=== PATIENT | male | born 1970 | race Hispanic/Latino ===

== ENCOUNTER 2017-10-22 21:44 | Observation (INO) | payer MEDICARE, MEDICAID ==
--- NOTE | 2017-10-22 22:56 | ED PDOC ---
Arrival/HPI - General Historian: Patient - History of Present Illness Time/Duration: Other (2 days) Symptom Onset: Sudden Symptom Course: Resolved Activities at Onset: Light Context: Home - General Chief Complaint: Weakness/Neurological Deficit Time Seen by Provider: 10/22/17 22:00 - History of Present Illness Narrative History of Present Illness (Text): 10/22/17 22:20 47 year old male, whose past medical history includes diabetes, hypertension, chronic renal disease, and renal transplant, presents to the emergency department transferred from [facility] for evaluation of history of onset left sided weakness and paresthesia which occurred 2 days ago. Patient states symptoms waxed and waned for a day and then disappeared. Patient states intermittently he had residual numbness to the left leg and possible facial droop.Today, patient was advised to go to the hospital for further evaluation.His symptoms had disappeared. Patient had undergone evaluation including lab work and CT study all reported as normal. Patient requested to be transferred to [facility].Pts. reports were sent with him. He is currently asymptomatic with no complaints. Patient currently denies any paresthesia, weakness, nausea, vomiting, diarrhea, or any other complaints.Pt. had received ASA prior at the [facility]. Note; Patients labs/ct/EKG sent with the patient PMD: Dr. Lucio ([facility]) Past Medical History - Provider Review Nursing Documentation Reviewed: Yes - Infectious Disease Hx of Infectious Diseases: None - Tetanus Immunization Tetanus Immunization: Unknown - Cardiac Hx Cardiac Disorders: Yes Hx Hypertension: Yes Hx Peripheral Vascular Disease: Yes - Pulmonary Hx Respiratory Disorders: No - Neurological Hx Neurological Disorder: No Hx Seizures: No (denies) - HEENT Hx HEENT Disorder: Yes (EYE SX O.U) - Renal Hx Renal Disorder: Yes Hx Renal Failure: Yes Other/Comment: RENAL DISEASE(KIDEY TRANSPLANT) 2010 - Endocrine/Metabolic Hx Endocrine Disorders: Yes Hx Diabetes Mellitus Type 1: Yes Hx Diabetes Mellitus Type 2: Yes - Hematological/Oncological Hx Blood Disorders: No - Integumentary Hx Dermatological Disorder: No - Musculoskeletal/Rheumatological Other/Comment: CHARCOT FOOT - Gastrointestinal Hx Gastrointestinal Disorders: Yes Hx Gastroesophageal Reflux: Yes (GERD) - Genitourinary/Gynecological Hx Genitourinary Disorders: No Hx Hematuria: Yes - Psychiatric Hx Emotional Abuse: No Hx Physical Abuse: No Hx Substance Use: No - Surgical History Hx Eye Surgery: Yes Hx Kidney Transplant: Yes (2010) Hx Musculoskeletal Surgery: Yes (RIGHT FOOT AND ANKLE X7) Hx Open Reduction Internal Fixation: (RIGHT FT W/ SCREW FIXATION) Hx Orthopedic Surgery: Yes (LEFT & RIGHT FOOT SURGERY ) Hx Tonsillectomy: Yes Other/Comment: Right foot - Anesthesia Hx Anesthesia: Yes Hx Anesthesia Reactions: No Hx Malignant Hyperthermia: No - Suicidal Assessment Feels Threatened In Home Enviroment: No Family/Social History - Physician Review Nursing Documentation Reviewed: Yes Family/Social History: No Known Family HX Smoking Status: Never Smoked Hx Alcohol Use: Yes Hx Substance Use: No Hx Substance Use Treatment: No Allergies/Home Meds Allergies/Adverse Reactions: Allergies No Known Allergies Allergy (Verified 10/23/17 18:59) Home Medications: Home Meds Medication Instructions Recorded Confirmed Aspirin [Bond Aspirin] 81 mg PO QPM 10/13/16 10/23/17 Atorvastatin [Lipitor] 20 mg PO DAILY 10/13/16 10/23/17 Insulin Aspart [Novolog Flexpen] 10 unit SUBCUT TID 10/13/16 10/23/17 Insulin Glargine, Recombina 20 unit SUBCUT BID 10/13/16 10/23/17 [Lantus] Multivitamin [Daily Mamadou] 1 tab PO DAILY 10/13/16 10/23/17 Tacrolimus [Prograf Cap] 1 mg PO QAM 10/13/16 10/23/17 Tacrolimus [Prograf Cap] 1 mg PO QPM 10/13/16 10/23/17 predniSONE [predniSONE Tab] 5 mg PO DAILY 10/13/16 10/23/17 Mycophenolate Sodium [Mycophenolic 720 mg PO BID 10/23/17 10/23/17 Acid] Review of Systems - Physician Review All systems were reviewed & negative as marked: Yes - Review of Systems Gastrointestinal: absent: Diarrhea, Nausea, Vomiting Neurological: Other (Left side weakness and paresthesia that currently resolved ) Physical Exam Vital Signs Reviewed: Yes Temperature: Afebrile Blood Pressure: Normal Pulse: Regular Respiratory Rate: Normal Appearance: Positive for: Well-Appearing, Non-Toxic, Comfortable Pain Distress: None Mental Status: Positive for: Alert and Oriented X 3 - Systems Exam Head: Present: Atraumatic, Normocephalic Pupils: Present: PERRL Extroacular Muscles: Present: EOMI Conjunctiva: Present: Normal Mouth: Present: Moist Mucous Membranes Neck: Present: Normal Range of Motion Respiratory/Chest: Present: Clear to Auscultation, Good Air Exchange. No: Respiratory Distress, Accessory Muscle Use Cardiovascular: Present: Regular Rate and Rhythm, Normal S1, S2. No: Murmurs Abdomen: Present: Normal Bowel Sounds. No: Tenderness, Distention, Peritoneal Signs Back: Present: Normal Inspection Upper Extremity: Present: Normal Inspection. No: Cyanosis, Edema Lower Extremity: Present: Normal Inspection. No: Edema Neurological: Present: GCS=15, CN II-XII Intact, Speech Normal, Motor Func Grossly Intact, Normal Sensory Function, Normal Cerebellar Funct, Norm Deep Tendon Reflexes, Gait Normal, Memory Normal, Normal 2Pt Descrimination. No: Other (No focal, motor, or sensory deficits. ) Skin: Present: Warm, Dry, Normal Color. No: Rashes Psychiatric: Present: Alert, Oriented x 3, Normal Insight, Normal Concentration Vital Signs Temp Pulse Resp BP Pulse Ox 10/23/17 15:33 88 16 158/100 H 98 10/23/17 14:25 98.2 F 92 H 18 156/91 H 99 10/23/17 13:00 92 H 18 158/90 H 98 10/23/17 10:44 86 18 166/99 H 94 L 10/23/17 09:30 84 18 150/90 99 10/23/17 07:44 98.6 F 80 18 153/98 H 96 10/23/17 06:09 84 15 142/95 H 97 10/23/17 04:10 83 16 151/98 H 96 10/23/17 02:52 87 16 156/97 H 96 10/23/17 01:43 85 16 143/99 H 96 10/22/17 22:02 98.7 F 97 H 18 152/88 H 99 Medical Decision Making ED Course and Treatment: 10/23/17 12:36 Case was discussed with Dr. Clinton Lucio who agrees that patient can be moved to Remote Telemetry. I have changed the order for him. Dr. Hurtado ED Director (Randy Hurtado) 10/22/17 22:40 Impression: 47 year old male presents for transfer from [facility] for evaluation on history of left sided weakness and paresthesia which occurred 2 days ago. Patient symptoms currently resolved. Plan: -- Reassess and disposition Progress Notes: 10/22/17 23:33 Pt. remains asymptomatic.Case d/w .Accepts to his service. on consult. Pt. not a candidate for TPA given resolution of symptoms. (Gabino White) - Medication Orders Current Medication Orders: Aspirin (Ecotrin) 81 mg PO DAILY [facility] Last Admin: 10/23/17 13:34 Dose: 81 mg Atorvastatin Calcium (Lipitor) 80 mg PO DAILY [facility] Last Admin: 10/23/17 13:34 Dose: 80 mg Clopidogrel Bisulfate (Plavix) 75 mg PO DAILY [facility] Last Admin: 10/23/17 13:34 Dose: 75 mg Insulin Detemir (Levemir) 10 unit SC [facility] Insulin Human Regular (Humulin R Med) 0 units SC [facility] PRN Reason: Protocol Last Admin: 10/23/17 16:47 Dose: 8 units MAR Blood Glucose Document 10/23/17 16:47 MV (Rec: 10/23/17 16:47 [place] [id number]) Blood Glucose Finger Stick Blood Glucose (70-120) 356 Subcutaneous Administrations Document 10/23/17 16:47 MV (Rec: 10/23/17 16:47 [place] [id number]) Injection Site MAR Injection Site Left Arm Charges for Administration # of Subcutaneous Administrations 1 Prednisone (Prednisone Tab) 5 mg PO DAILY [facility] Last Admin: 10/23/17 15:29 Dose: Tacrolimus (Prograf Cap) 1 mg PO Q12 [facility] Discontinued Medications Amlodipine Besylate (Norvasc) 5 mg PO STAT STA Stop: 10/23/17 14:31 Last Admin: 10/23/17 15:26 Dose: 5 mg Lisinopril (Zestril) 10 mg PO STAT STA Stop: 10/23/17 17:51 Last Admin: 10/23/17 18:07 Dose: 10 mg MAR Pulse and Blood Pressure Document 10/23/17 18:07 MV (Rec: 10/23/17 18:07 MV [id number]) Pulse Pulse Rate (60-90) 88 Blood Pressure Blood Pressure (100/60-150/90) 154/103 NIHSS Scale (Durand) Time Performed: 21:50 - How Severe is the Stoke Baseline Level of Consciousness: 0=Alert LOC to Questions: 0=Both comments correct LOC to commands: 0=Obeys both correctly Best Gaze: 0=Normal Visual: 0=No visual loss Facial: 0=Normal Motor Arm - Left: 0=No drift Motor Arm - Right: 0=No drift Motor Leg - Left: 0=No drift Motor Leg - Right: 0=No drift Limb Ataxia: 0=Absent Sensory: 0=Normal Best Language: 0=No aphasia Dysarthia: 0=Normal articulation Extinction & Inattention (Neglect): 0=Normal, no object Score: 0 Risk Level: No Stroke Risk rTPA Inclusion/Exclusion - Refusal of Treatment Patient Refused Treatment: No - Inclusion Criteria for Altepase Patient is 18 years or Older: Yes The Clinical Diagnosis of Ischemic Stroke That is Causing a Potentially Disabling Neurological Deficit: No Time of Onset is Well Established to be Less Than 270 Minute Before Treatment Would Begin: No Risk/Benefit Discussed With Patient/Family Member Present: Yes - Exclusion Criteria for Altepase Uncontrolled Hypertension at Time of Treatment (Systolic BP above 185 or Diastolic BP above 110 mmHg): No Active Internal Bleeding: No Known Bleeding Diathesis Including but Not Limited to: Platelets Below 100,000/ mm,PTT Above 40 sec After Heparin Use, Current Use of Oral Anitcoagulant With INR Greater Than 1.7 or PT Greater Than 15 secs: No Evidence of an Intracranial Hemorrhage: No Evidence of Major Acute Infarct With Signs Greater Than 1/3 MCA Territory: No Suspicion of Subarachnoid Hemorrhage on Pretreatment Evaluation Even if CT Head Negative For Hemorrhage: No - Warning to TPA With Conditions Following Conditions Weighed Against Anticipated Benefit: Yes Condition: Rapid Improvement - Scribe Statement The provider has reviewed the documentation as recorded by the Scribe - Scribe Statement Esau Hough Provider Scribe Attestation: All medical record entries made by the Scribe were at my direction and personally dictated by me. I have reviewed the chart and agree that the record accurately reflects my personal performance of the history, physical exam, medical decision making, and the department course for this patient. I have also personally directed, reviewed, and agree with the discharge instructions and disposition. (Gabino White) Disposition/Present on Arrival - Present on Arrival Any Indicators Present on Arrival: No History of DVT/PE: No History of Uncontrolled Diabetes: No Urinary Catheter: No History of Decub. Ulcer: No History Surgical Site Infection Following: None - Disposition Have Diagnosis and Disposition been Completed?: Yes Disposition Time: 23:39 Patient Plan: Observation - Disposition Diagnosis: TIA (transient ischemic attack) Disposition: HOSPITALIZED Patient Problems: Current Active Problems Problem Status Onset TIA (transient ischemic attack) Acute Condition: STABLE
--- NOTE | 2017-10-23 13:08 | MRI ---
PROCEDURE: MRI BRAIN WITHOUT CONTRAST HISTORY: TIA COMPARISON: Noncontrast head CT from 10/13/2012 TECHNIQUE: Multiplanar, multisequence MR images of the brain were obtained without intravenous contrast enhancement. FINDINGS: HEMORRHAGE: None DWI: There focal area of restricted diffusion in the right medial thalamus superior lateral cerebral peduncle. BRAIN PARENCHYMA: There is corresponding increased T2/FLAIR signal in the right thalamus and superolateral right cerebral peduncle. There are few tiny T2/FLAIR hyperintense foci in the centrum semiovale. There is no mass, mass effect or abnormal extra-axial fluid collection. The midline sagittal structures are normal. VENTRICLES: The ventricles are normal in size, shape and configuration. There is a humphrey cisterna magna. CRANIUM: There is normal bone marrow signal pattern. ORBITS: Grossly unremarkable. PARANASAL SINUSES/MASTOIDS: Predominantly clear. There are bilateral mastoid effusions. VASCULAR SYSTEM: Skull base flow voids intact. OTHER FINDINGS: None. IMPRESSION: 1. Acute infarctions in the right medial thalamus and superolateral right cerebral peduncle. 2. Minimal white matter changes in the centrum semiovale are nonspecific, the differential considerations include gliosis, early chronic microangiopathic changes and migraine headache effect amongst others. Important findings were discussed with nurse Barone in the ER on 10/23/2017 at 12:55 p.m.
[2017-10-23 15:36] VITALS: O2SAT 98
[2017-10-23] MEDS: Insulin Reg-MEDIUM-Coverage SC SCH ×2 (16:47→21:20)
--- NOTE | 2017-10-23 18:33 | US ---
PROCEDURE: Bilateral carotid artery duplex ultrasound HISTORY: Carotid stenosis CVA PHYSICIAN(S): John Duque MD. TECHNIQUE: Duplex sonography and color-flow Doppler were used to evaluate the carotid bifurcations and limited segments of the vertebral arteries bilaterally. FINDINGS: There is mild smooth hypoechoic plaque noted at the carotid bifurcations bilaterally. The peak systolic velocity in the proximal right internal carotid artery is 72 cm/sec. This corresponds to a 20 to 39% proximal right ICA stenosis. Normal systolic velocities are noted in the proximal right external carotid artery. There is antegrade flow in the right vertebral artery. The peak systolic velocity in the proximal left internal carotid artery is 81 cm/sec. This corresponds to a 20 to 39% proximal left ICA stenosis. Normal systolic velocities are noted in the proximal left external carotid artery. There is antegrade flow in the dominant left vertebral artery. IMPRESSION: 1. Bilateral 20-39% proximal ICA stenoses. 2. Antegrade flow in both vertebral arteries.
[2017-10-23] MEDS ORDERED: Insulin Detemir 100 units/ml Vial (Levemir) SC SCH (22:00)
[2017-10-23] MEDS ORDERED: Influenza Vaccine 60 mcg/0.5 mL SYR (4YR UP) IM ONE (22:02)
[2017-10-23] MEDS ORDERED: Pneumococcal 23-Valent Vaccine IM ONE (22:02)
[2017-10-23 22:03] VITALS: BMI 22.5
[2017-10-24 02:42] VITALS: RESP 18
[2017-10-24 07:02] LABS: BASO # 0.04 K/mm3 (0.0-2.0); BASO % 0.5 % (0.0-3.0); EOS # 0.4 (0.0-0.7); EOS % 4.6 % (1.5-5.0); GRAN # 5.57 (1.4-6.5); GRAN % 64.3 % (50.0-68.0); HEMOGLOBIN 12.5 g/dL (14.0-18.0); LYMPH # 2.1 (1.2-3.4); LYMPH % 24.1 % (22.0-35.0); MEAN CELL VOLUME 82.5 fl (80.0-105.0); MEAN CORPUSCULAR HEMOGLOBIN 25.4 pg (25.0-35.0); MEAN CORPUSCULAR HGB CONC 30.8 g/dl (31.0-37.0); MEAN PLATELET VOLUME 9.9 fl (7.0-11.0); MONO # 0.6 (0.1-0.6); MONO % 6.5 % (1.0-6.0); PLATELET COUNT 376 10^3/uL (120.0-450.0); RBC 4.92 10^6/uL (3.5-6.1); RED CELL DISTRIBUTION WIDTH 14.3 % (11.5-14.5); WHITE BLOOD COUNT 8.7 10^3/ul (4.5-11.0)
[2017-10-24 07:11] LABS: ALB/GLOB RATIO 1.2 (1.1-1.8); ALBUMIN 3.7 g/dL (3.0-4.8); CALCIUM 9.9 mg/dL (8.4-10.5)
--- NOTE | 2017-10-24 08:05 | CON ---
DATE: 10/23/2017 NEUROLOGY CONSULTATION CHIEF COMPLAINT: Left side numbness. HISTORY OF PRESENT ILLNESS: This is a 47-year-old man, history of type 2 diabetes mellitus, hypertension, chronic renal disease, status post renal transplant, history of multiple interventions on his right foot surgeries who presented for evaluation of onset of left-sided weakness and paresthesias started about 2 days ago, which waxed and waned and therefore came to the hospital for further evaluation. No facial droop is seen. He underwent an MRA of the brain, which showed an acute infarct in the right medial thalamus and superior right cerebellar peduncle and some chronic ischemic changes. Currently, he has no focal weakness in the extremity except for some mild residual slow finger tap on the left hand compared to the right. He does have features of diabetic neuropathy on neuro examination as well. He does mention, for many years, he has been having tingling and numbness in his both hands especially at night, which is most likely related to an underlying carpal tunnel syndrome too. Carotid Doppler has been ordered and has been completed, results pending. His blood sugars are slightly elevated and his blood pressure was diastolically elevated 158/100. Otherwise no headaches. PAST MEDICAL HISTORY: Type 2 diabetes mellitus, hypertension, chronic renal disease, renal transplant, multiple surgeries to the right foot. ALLERGIES: NO KNOWN DRUG ALLERGIES. SOCIAL HISTORY: No illicit drug use, smoking or EtOH abuse at this time. FAMILY HISTORY: Noncontributory. MEDICATIONS: Reviewed by nurse reconciliation sheet. REVIEW OF SYSTEMS: A 14-point review of systems negative except as per the HPI. PHYSICAL EXAMINATION: VITAL SIGNS: Temperature 98.2, pulse rate 92, blood pressure 156/91, respiratory rate of 18, oxygen saturation of 99% by room air. GENERAL: Patient is sitting up in bed, in no acute distress. HEENT: Atraumatic and normocephalic. PERRLA. Extraocular muscles intact. NECK: Supple. No JVD, no adenopathy noted. LUNGS: Clear to auscultation. No adventitious sounds. HEART: S1, S2. Normal rate and rhythm. No murmurs, rubs or gallops. ABDOMEN: Soft, nontender, nondistended. Bowel sounds present. EXTREMITIES: No clubbing, no cyanosis. Peripheral pulses are 2+ felt bilaterally. NEUROLOGIC: Patient is alert, oriented to person, place, month and year. Speech is fluent without any errors. Cranial nerves II through XII intact. Motor: Moves all extremities equally except for left slow finger tap compared to the right. no pronator drift seen. Sensory: Decreased light touch and pinprick up to the calves bilaterally. Decreased vibration to the toes. DTRs are 2+ throughout and 1 at the ankles. Coordination: [id number] intact. No dysmetria noted. Gait is deferred for now. LABORATORY DATA: Today's glucose is 238. ASSESSMENT AND PLAN: This is a 47-year-old man, past medical history of type 2 diabetes mellitus, hypertension, chronic renal disease, status post renal transplant who presents with 2 days onset of left-sided numbness and paresthesias with questionable facial droop and therefore came to the hospital for further evaluation. His MRA of the brain showed right medial thalamus and superior lateral right cerebellar peduncle infarctions likely secondary to diffuse atherosclerotic disease with uncontrolled blood pressure and diabetes. RECOMMENDATIONS: At this time, recommend: 1. Aspirin 81, Plavix 75 mg, atorvastatin 80 mg p.o. daily for stroke prevention. 2. Hemoglobin A1c and keep blood sugars between 140 to 180. 3. Since it has only been 40 hours since the onset of symptoms, recommended continue to keep his blood pressure between 130 to 140 systolic and diastolic 70 to 80. 4. PT/OT assessment. 5. Medication optimization for his diabetes and diabetic diet and get a hypercoagulable workup and a Cardiology consult. Once again, thank you for this consult. Pj Oreilly MD
[2017-10-24] MEDS: Insulin Reg-MEDIUM-Coverage SC SCH ×2 (09:25→11:36)
[2017-10-24] MEDS ORDERED: MYFORTIC 360 MG PO SCH (10:00)
[2017-10-24 11:18] VITALS: BP 137/87; TEMP 97.9
[2017-10-24 12:17] VITALS: PULSE 84
--- NOTE | 2017-10-24 17:57 | CARD ---
APPROVED REPORT EXAM: Two-dimensional and M-mode echocardiogram with Doppler and color Doppler. INDICATION CVA, MD, HTN 2D DIMENSIONS Left Atrium (2D)3.8 (1.6-4.0cm)IVSd1.3 (0.7-1.1cm) LVDd4.3 (3.9-5.9cm)PWd1.3 (0.7-1.1cm) LVDs2.9 (2.5-4.0cm)FS (%) 32.2 % LVEF (%)60.7 (>50%) M-Mode DIMENSIONS Aortic Root3.30 (2.2-3.7cm)Aortic Cusp Exc.1.80 (1.5-2.0cm) Aortic Valve AoV Peak Vxtznbkk952.0cm/Chikis Peak GR.5mmHg Mitral Valve MV E Cywrecuj07.5cm/sMV A Jtfckvlh74.9cm/sE/A ratio0.8 TDI Lateral E' Peak V8.38cm/sMedial E' Peak V4.48cm/sE/Lateral E'6.4 E/Medial E'11.9 Pulmonary Valve PV Peak Yvyiwtyi71.4cm/sPV Peak Grad.2mmHg Tricuspid Valve TR Peak Ajmqiyuy526pz/sRAP [id number] Peak Gr.17mmHg [id number] LEFT VENTRICLE The left ventricle is normal size. There is borderline to mild concentric left ventricular hypertrophy. The left ventricular function is normal.EF-60-65% There is normal LV segmental wall motion. The left ventricular diastolic function is normal. No left ventricle thrombus noted on this study. There is no ventricular septal defect visualized. There is no left ventricular aneurysm. There is no mass noted in the left ventricle. RIGHT VENTRICLE The right ventricle is normal size. There is normal right ventricular wall thickness. The right ventricular systolic function is normal. ATRIA The left atrium size is normal. The right atrium size is normal. The interatrial septum is intact with no evidence for an atrial septal defect. AORTIC VALVE The aortic valve is normal in structure. No aortic regurgitation is present. There is no aortic valvular stenosis. There is no aortic valvular vegetation. MITRAL VALVE The mitral valve is thickened but opens well. Mitral regurgitation is trace. There is no mitral valve stenosis. There is no evidence of mitral valve prolapse. TRICUSPID VALVE The tricuspid valve leaflets are thickened , but open well. There is trace tricuspid regurgitation.RVSP-27 mmof HG There is no tricuspid valve stenosis. There is no tricuspid valve prolapse or vegetation. PULMONIC VALVE The pulmonary valve is normal in structure. There is trace pulmonic valvular regurgitation. There is no pulmonic valvular stenosis. GREAT VESSELS The aortic root is normal in size. The ascending aorta is normal in size. The pulmonary artery is normal. PERICARDIAL EFFUSION There is no pleural effusion. There is no pericardial effusion. <Conclusion> Normal Chamber Size,EF-60-65% Trace MR/TR.RVSP-27 mmof hg.
--- NOTE | 2017-10-24 23:30 | CON ---
DATE: 10/24/2017 LOCATION: The patient is in room 361, bed 2. REASON FOR CONSULTATION: Severe diabetes, hypertension, and high cholesterol. HISTORY OF PRESENT ILLNESS: Patient is a 47-year-old male, who is known to have diabetes mellitus since age 13, high blood pressure 8 to 10 years ago and high cholesterol 8 to 10 years of duration. States that 4 days ago, on Sunday, he suddenly felt weakness of the whole left side of the body and slight slurring of speech, and he also felt that he is going to lose balance. After few hours, all those weakness disappeared and he was back to normal. Next day, Sunday, he was normal and Sunday again the same thing happened again with left-sided weakness and also drooping of the left side of the mouth. Then he came to the hospital and after few hours, again everything was normal. Patient is now fully conscious, alert. Denies any weakness. Denies any chest pain, shortness of breath, or palpitation. Denies any history of exertional chest pain in the past. PAST MEDICAL HISTORY: Positive for right leg injury and he had seven times surgery on the ankle on the right. Also he had a fall and has left foot arch and heel injured and had surgery for that. Patient had kidney transplant from her sister for abnormal kidney function. He was never on dialysis, so prior to dialysis already had the kidney transplant 6 years ago. Patient had bilateral cataract surgery 10 years ago. In childhood, he had a both-ear surgery, but he does not remember what was the reason for that. PERSONAL HISTORY: Denies smoking. Denies drinking. ALLERGIES: PATIENT DENIED ANY ALLERGIES. FAMILY HISTORY: Mother of carcinoma of the breast and father of carcinoma of the lung. MEDICATIONS AT HOME: Aspirin 81 mg daily, atorvastatin 20 mg daily, insulin aspart, NovoLog FlexPen 10 units subcu t.i.d., insulin glargine, Lantus 20 units subcu b.i.d., multivitamin 1 tablet daily, Prograf capsule 1 mg b.i.d., prednisone 5 mg daily, and mycophenolic acid 720 mg p.o. b.i.d. REVIEW OF SYSTEMS: All the systems reviewed, positive mentioned in the history, otherwise negative. PHYSICAL EXAMINATION: VITAL SIGNS: Blood pressure 137/87, respirations 18, pulse 81, temperature 97.9. HEENT: Head is normocephalic. Eyes, pupils normal. Conjunctivae normal. Nose and throat normal. NECK: JVP low. Carotid equal. THORAX: AP diameter normal. LUNGS: Clear. CARDIOVASCULAR: S1 and S2. ABDOMEN: Soft. No tenderness. No organomegaly. Bowel sounds are normal. EXTREMITIES: No clubbing. No cyanosis. Thigh and feet, no edema. Patient is moving all extremities normally. SKIN: Warm and dry. LABORATORY DATA: WBC 8.7, hemoglobin 12.5, hematocrit 40.6, platelets 376. Sodium 140, potassium 3.9, BUN 24, creatinine 1.6, random sugar 272, another sugar 212. AST, ALT, total bilirubin are normal. Triglyceride 185, cholesterol 213, LDL 104, HDL 57, homocysteine 14.1 EKG showed regular sinus rhythm. Brain MRI showed acute infarction in the right medial thalamus and superolateral right cerebral peduncle. Carotid ultrasound showed bilateral 20% to 39% proximal ICA stenosis. DIAGNOSES: Acute cerebrovascular accident, diabetes mellitus, hypertension, high cholesterol, status post kidney transplant, renal dysfunction, anemia. PLAN: We will do an echocardiogram. In the meantime, patient is getting aspirin 81 mg daily, insulin as ordered, Lipitor 80 mg p.o. daily, Plavix 75 mg p.o. daily, prednisone 5 mg daily, Prograf capsule 2 mg p.o. q. 12 hour. I have been ordered an echocardiogram. Patient has high risk for coronary artery disease due to longstanding history of diabetes, high blood pressure and high cholesterol. We will do stress test later on in few weeks. Patient does not have any coronary artery symptoms at the present moment, and we will continue to follow closely. Zuleika Gallegos MD
== END 2017-10-24 14:49 | disposition home or self-care (01) ==
LOC: ED 21:44 → ERH 23:39 → 3RNO 10-23 15:47 → OBSVTOIN 10-24 12:34 → INTOOBSV 10-24 12:34
PROVIDERS: ADMIT Internal Medicine; ATTEND Internal Medicine
DX: I63.9 Cerebral infarction, unspecified (principal); Z94.0 Kidney transplant status; I12.9 Hypertensive chronic kidney disease with stage 1 through stage 4 chronic kidney disease, or unspecified chronic kidney disease; E11.22 Type 2 diabetes mellitus with diabetic chronic kidney disease; N18.9 Chronic kidney disease, unspecified; E11.40 Type 2 diabetes mellitus with diabetic neuropathy, unspecified; E78.00 Pure hypercholesterolemia, unspecified; K21.9 Gastro-esophageal reflux disease without esophagitis; R29.700 NIHSS score 0
CPT/HCPCS: 36415; 70551; 80053; 80061; 81241; 82607; 82948; 83036; 83090; 85025; 85044; 85300; 85302; 85303; 85305; 85306; 85384; 85420; 85730; 93306; 93880; 97116; 97162; 99285; G0378; G8978; G8979; G8980

== ENCOUNTER 2017-11-24 10:55 | Inpatient (IN) | payer MEDICARE, MEDICAID ==
[2017-11-24] MEDS ORDERED: Sodium Chloride 0.9% 1,000 ML IV STA ×4 (11:11→11:58)
[2017-11-24] MEDS ORDERED: Piperacill/Tazo 4.5gm in NS 4.5 GM/100 ML BAG IVPB STA (11:12)
[2017-11-24] MEDS ORDERED: Vancomycin 1gm in NS 250ml 1 GM/250 ML BAG IVPB STA (11:12)
--- NOTE | 2017-11-24 11:21 | ED PDOC ---
Arrival/HPI - General Chief Complaint: High Blood Sugar Time Seen by Provider: 11/24/17 11:01 Historian: Patient - History of Present Illness Narrative History of Present Illness (Text): 11/24/17 11:11 Jose Yates is a 47 year old male, whose past medical history includes diabetes, hypertension, HCL, and renal disease/renal transplant, who presents to the emergency room complaining of hyperglycemia since last night. The patient 's blood sugar ramez last night and he was unable to lower it. Patient has experienced 6 vomiting episodes since last night. Patient's fiance notes the patient has been drowsy and "out of it" since last night. Patient has been taking antibiotics for an infected right for 3 days but stopped yesterday due to vomiting. Patient denies any fever, chest pain, shortness of breath, nausea, vomiting, diarrhea, urinary symptoms, back pain, neck pain, headache, or any other complaints. PMD: Dr. Clinton Lucio Cardio: Dr. Gallegos (previous visit to [facility] [place]) Ortho: Dr. Sheets did his right ankle sx Renal: Dr. Acevedo (spelling unsure, for Renal) Time/Duration: Other (last night) Symptom Onset: Gradual Symptom Course: Unchanged Activities at Onset: Light Context: Home Past Medical History - Provider Review Nursing Documentation Reviewed: Yes - Infectious Disease Hx of Infectious Diseases: None - Tetanus Immunization Tetanus Immunization: Unknown - Cardiac Hx Cardiac Disorders: Yes Hx Hypertension: Yes - Pulmonary Hx Respiratory Disorders: No - Neurological Hx Neurological Disorder: No Hx Seizures: No (denies) - HEENT Hx HEENT Disorder: Yes (EYE SX O.U) - Renal Hx Renal Failure: Yes - Endocrine/Metabolic Hx Diabetes Mellitus Type 1: Yes (since 13yo.) - Hematological/Oncological Hx Blood Disorders: No - Integumentary Hx Dermatological Disorder: Yes Other/Comment: SCARRING TO BILATERAL FOOT. - Musculoskeletal/Rheumatological Hx Musculoskeletal Disorders: Yes (RIGHT FOOT AND LEFT FOOT SX-R FOOT ORIF,) Hx Falls: No Other/Comment: CHARCOT FOOT - Gastrointestinal Hx Gastrointestinal Disorders: Yes Hx Gastroesophageal Reflux: Yes (GERD) - Genitourinary/Gynecological Hx Genitourinary Disorders: Yes Hx Hematuria: Yes - Psychiatric Hx Emotional Abuse: No Hx Physical Abuse: No Hx Substance Use: No - Surgical History Hx Kidney Transplant: Yes (2010) Hx Musculoskeletal Surgery: Yes (RIGHT FOOT AND ANKLE X7) Hx Orthopedic Surgery: Yes (LEFT & RIGHT FOOT SURGERY ) Other/Comment: Right foot - Anesthesia Hx Anesthesia: Yes Hx Anesthesia Reactions: No Hx Malignant Hyperthermia: No - Suicidal Assessment Feels Threatened In Home Enviroment: No Family/Social History - Physician Review Nursing Documentation Reviewed: Yes Family/Social History: Unknown Family HX Smoking Status: Never Smoked Hx Alcohol Use: No Hx Substance Use: No Hx Substance Use Treatment: No Allergies/Home Meds Allergies/Adverse Reactions: Allergies No Known Allergies Allergy (Verified 11/24/17 12:19) Home Medications: Home Meds Medication Instructions Recorded Confirmed Aspirin [[place] Aspirin] 81 mg PO QPM 10/13/16 11/24/17 Atorvastatin [Lipitor] 20 mg PO DAILY 10/13/16 10/23/17 Insulin Aspart [Novolog Flexpen] 10 unit SUBCUT TID 10/13/16 11/24/17 Insulin Glargine, Recombina 20 unit SUBCUT BID 10/13/16 10/23/17 [Lantus] Multivitamin [Daily Mamadou] 1 tab PO DAILY 10/13/16 11/24/17 Tacrolimus [Prograf Cap] 2 mg PO BID 10/13/16 11/24/17 predniSONE [predniSONE Tab] 5 mg PO DAILY 10/13/16 11/24/17 Mycophenolate Sodium [Mycophenolic 720 mg PO BID 10/23/17 11/24/17 Acid] Mycophenolate Sodium [Myfortic] 2 tab PO BID 10/23/17 11/24/17 Clopidogrel [Plavix] 75 mg PO DAILY 11/24/17 11/24/17 Propranolol HCl [Propranolol HCl] 10 mg PO HS 11/24/17 11/24/17 Review of Systems - Physician Review All systems were reviewed & negative as marked: Yes - Review of Systems Constitutional: Fatigue Eyes: Normal ENT: Normal Respiratory: Normal. absent: SOB, Cough Cardiovascular: Normal. absent: Chest Pain, Palpitations Gastrointestinal: Normal. absent: Abdominal Pain, Diarrhea, Nausea, Vomiting Genitourinary Male: Normal. absent: Dysuria, Frequency, Hematuria, Urinary Output Changes Musculoskeletal: Normal. absent: Back Pain, Neck Pain Skin: Cellulitis (right foot) Neurological: Normal. absent: Headache Endocrine: Normal Hemo/Lymphatic: Normal Psychiatric: Normal Physical Exam Vital Signs Reviewed: Yes Vital Signs Temp Pulse Resp BP Pulse Ox 11/24/17 13:17 21 101/53 L 100 11/24/17 13:13 92.5 F L 68 11/24/17 12:30 92.5 F L 61 24 105/40 L 100 11/24/17 12:03 50 L 22 99/42 L 100 11/24/17 11:30 92 H 24 99/42 L 100 11/24/17 10:55 92.8 F L 110 H 24 95/49 L 90 L Temperature: Hypothermic Blood Pressure: Hypotensive Pulse: Tachycardic Respiratory Rate: Tachypneic Appearance: Positive for: Non-Toxic, Comfortable, Ill-Appearing Pain Distress: None Mental Status: Positive for: Alert and Oriented X 3 Finger Stick Blood Glucose: 500 - Systems Exam Head: Present: Atraumatic, Normocephalic Pupils: Present: PERRL Extroacular Muscles: Present: EOMI Conjunctiva: Present: Normal Ears: Present: Normal Mouth: Present: Dry Pharnyx: Present: Normal. No: ERYTHEMA Nose (External): Present: Atraumatic Nose (Internal): Present: Normal Inspection Neck: Present: Normal Range of Motion. No: Meningeal Signs Respiratory/Chest: Present: Clear to Auscultation, Good Air Exchange, Accessory Muscle Use. No: Respiratory Distress Cardiovascular: Present: Normal S1, S2, Tachycardic. No: Murmurs Abdomen: Present: Normal Bowel Sounds. No: Tenderness, Distention, Peritoneal Signs, Guarding Back: Present: Normal Inspection. No: Midline Tenderness Upper Extremity: Present: Normal Inspection, NORMAL PULSES. No: Cyanosis, Edema Lower Extremity: Present: Normal Inspection, NORMAL PULSES, Tenderness, Swelling (right foot), Erythema (right lower leg and foot with warmth), Neurovascularly Intact. No: Edema Neurological: Present: GCS=15, CN II-XII Intact, Speech Normal, Motor Func Grossly Intact, Normal Sensory Function Skin: Present: Warm, Dry, Normal Color. No: Rashes Psychiatric: Present: Alert, Oriented x 3, Normal Insight, Normal Concentration , Other (drowsy) Medical Decision Making ED Course and Treatment: 11/24/17 11:25 Impression: 47 year old male presents to the emergency department complaining of hyperglycemia. Differential Diagnosis included but are not limited to: DKA due to Right lower leg Cellulitis r/o Osteomyelitis; New Onset Afib d/t Sepsis/Cardiac, Hyperkalemia; Severe Sepsis; Acute on Chronic Renal Failure Plan: -- EKG -- Cardiac Enzymes -- Labs -- Chest X-ray -- Magnesium -- Sodium Chloride -- Venous Blood Gas -- Vancomycin -- Piperecill -- Blood Culture -- Urine Culture -- Urinalysis -- Reassess and disposition Progress Notes: EKG reviewed, shows Atrial Fibrillation at 59 bpm. Incomplete left bundle branch block. 11/24/17 11:43 Code Sepsis. 11/24/17 11:[address] Benavidez, ICU attending, who is aware and accepts plan. Accepts pt into his service. 11/24/17 12:[address] Lucio, admitting doctor, who is aware and agrees with plan. Accepts pt into his service. Requests, Dr. Mota for ID, Dr. Marie for Renal, Dr. Bourne for Cardio, Dr. Lainez for Ortho. 11/24/17 12:35 Dr. Perez came to evaluate patient. Labs result with elevated potassium on chemistry. Bicarb, Calcium IV and Kayexalate ordered. Case discusses with Dr. Brown, who is aware and agrees with plan. He does not recommend ASA or anticoagulation at this time. 11/24/17 12:[address] Diaz, orthopedic doctor, who is aware and agrees with plan. Case discussed with Dr. Marie, renal, who agreed with current treatment of hyperkalemia and dka. He recommended Endocrinology. 11/24/17 12:50 Dr. Gallegos states on the monitor he is now in NSR. Repeat EKG ordered. 11/24/17 12:59 Repeat EKG: NSR at [address] elevations, prolonged QT. Will continue to monitor. 11/24/17 14:02 Dr. Benavidez was informed about Dr. Marie's recommendation for Endo. He will consult endocrinology. - Critical Care Critical Care Minutes: 60 minutes - Lab Interpretations Lab Results: 11/24/17 11:15 11/24/17 11:15 Lab Results 11/24/17 11:15: Sodium 114 L*, Chloride 78 L D, Potassium 7.4 H* D, Carbon Dioxide < 5 L D, Anion Gap 38 H, BUN 82 H, Creatinine 5.2 H, Est GFR ( Amer) 14, Est GFR (Non-Af Amer) 12, Random Glucose 960 H* D, Calcium 8.8, Magnesium 2.5 H, Total Bilirubin 0.4, AST 24, ALT 51, Alkaline Phosphatase 231 H D, Lactate Dehydrogenase 369, Total Creatine Kinase 126, Troponin I 0.48 H*, NT-Pro-B Natriuret Pep 81091 H, Total Protein 6.8, Albumin 3.8, Globulin 3.0, Albumin/Globulin Ratio 1.2 11/24/17 11:15: pO2 76 H, VBG pH 6.89 L*, VBG pCO2 23.0 L, VBG HCO3 4.4 L, VBG Total CO2 5.1 L, VBG O2 Sat (Calc) 92.1 H, VBG Base Excess -27.7 L, VBG Potassium 7.8 H*, Sodium 112.0 L*, Chloride 72.0 L, Glucose > 750 H*, Lactate 2.1, FiO2 21.0, Venous Blood Potassium 7.8 H* 11/24/17 11:15: WBC 25.2 H* D, RBC 4.23, Hgb 11.1 L, Hct 36.5 L, MCV 86.3 D, MCH 26.2, MCHC 30.4 L, RDW 14.6 H, Plt Count 402, MPV 11.4 H, Gran % 91.6 H, Lymph % (Auto) 3.5 L, Stewart % (Auto) 4.6, Eos % (Auto) 0.0 L, Baso % (Auto) 0.3, Gran # 23.12 H, Lymph # (Auto) 0.9 L, Stewart # (Auto) 1.2 H, Eos # (Auto) 0.0, Baso # (Auto) 0.07, Neutrophils % (Manual) 93 H, Lymphocytes % (Manual) 3 L, Monocytes % (Manual) 4 11/24/17 11:01: POC Glucose (mg/dL) > 500 H* I have reviewed the lab results: Yes Interpretation: Abnormal lab values - RAD Interpretation Radiology Orders: 11/24/17 11:11 CHEST PORTABLE [RAD] Stat CXR negative. Circuit Board Repair Technician: ED Physician - EKG Interpretation Interpreted by ED Physician: Yes Type: 12 lead EKG Comparison: Different from prev. EKG - Medication Orders Current Medication Orders: Insulin Human Regular 100 (units/ Sodium Chloride) 100 mls @ 7 mls/hr IV .[id number] PRN; Protocol; 7 UNITS/HR PRN Reason: TITRATE PER MD ORDER Last Admin: 11/24/17 12:20 Dose: 7 units/hr, 7 mls/hr eMAR Start Stop Document 11/24/17 12:20 SRE (Rec: 11/24/17 12:42 SRE [id number]) Intravenous Solution Start Date 11/24/17 Start Time 12:20 End Date 11/24/17 MAR Blood Glucose Document 11/24/17 12:20 SRE (Rec: 11/24/17 12:42 SRE [id number]) Blood Glucose Finger Stick Blood Glucose (70-120) 500 Titration Intervention Document 11/24/17 12:20 SRE (Rec: 11/24/17 12:42 SRE [id number]) Titration Intake Waste Amount 0 Container Volume 100 Titration Dosing Titration Dose 7 IV Rate 7 Intake/Decrease Started Discontinued Medications Sodium Chloride (Sodium Chloride 0.9%) 1,000 mls @ 999 mls/hr IV .Q1H1M STA Stop: 11/24/17 12:11 Last Admin: 11/24/17 11:25 Dose: 999 mls/hr eMAR Start Stop Document 11/24/17 11:25 SRE (Rec: 11/24/17 11:25 SRE [id number]) Intravenous Solution Start Date 11/24/17 Start Time 11:20 End Date 11/24/17 End time 12:20 Total Infusion Time 60 Vancomycin HCl (Vancomycin 1gm) 1 gm in 250 mls @ 167 mls/hr IVPB STAT STA PRN Reason: Protocol Stop: 11/24/17 12:41 Last Admin: 11/24/17 11:56 Dose: 167 mls/hr eMAR Start Stop Document 11/24/17 11:56 SRE (Rec: 11/24/17 11:57 SRE [id number]) Intravenous Solution Start Date 11/24/17 Start Time 11:57 End Date 11/24/17 End time 13:30 Total Infusion Time 93 Piperacillin Sod/Tazobactam Sod (Zosyn 4.5 Gm In Ns 100ml) 4.5 gm in 100 mls @ 200 mls/hr IVPB STAT STA PRN Reason: Protocol Stop: 11/24/17 11:41 Last Admin: 11/24/17 11:25 Dose: 200 mls/hr eMAR Start Stop Document 11/24/17 11:25 SRE (Rec: 11/24/17 11:26 SRE [id number]) Intravenous Solution Start Date 11/24/17 Start Time 11:25 End Date 11/24/17 End time 12:25 Total Infusion Time 60 Sodium Chloride (Sodium Chloride 0.9%) 1,000 mls @ 999 mls/hr IV .Q1H1M STA Stop: 11/24/17 12:14 Last Admin: 11/24/17 11:39 Dose: 999 mls/hr eMAR Start Stop Document 11/24/17 11:39 SRE (Rec: 11/24/17 11:40 SRE [id number]) Intravenous Solution Start Date 11/24/17 Start Time 11:39 End Date 11/24/17 End time 12:35 Total Infusion Time 56 Insulin Human Regular 100 (units/ Sodium Chloride) 100 mls @ 0 mls/hr IV .Q0M PRN; Protocol; Titrate PRN Reason: TITRATE PER MD ORDER Sodium Chloride (Sodium Chloride 0.9%) 1,000 mls @ 999 mls/hr IV .Q1H1M STA Stop: 11/24/17 12:52 Last Admin: 11/24/17 12:39 Dose: 999 mls/hr eMAR Start Stop Document 11/24/17 12:39 SRE (Rec: 11/24/17 12:40 SRE [id number]) Intravenous Solution Start Date 11/24/17 Start Time 12:00 End Date 11/24/17 End time 13:00 Total Infusion Time 60 Sodium Chloride (Sodium Chloride 0.9%) 1,000 mls @ 999 mls/hr IV .Q1H1M STA Stop: 11/24/17 12:58 Last Admin: 11/24/17 12:33 Dose: 999 mls/hr eMAR Start Stop Document 11/24/17 12:33 SRE (Rec: 11/24/17 12:34 SRE [id number]) Intravenous Solution Start Date 11/24/17 Start Time 12:00 End Date 11/24/17 End time 13:00 Total Infusion Time 60 Calcium Gluconate 1,000 mg/ (Sodium Chloride) 110 mls @ 110 mls/hr IVPB ONCE ONE Stop: 11/24/17 13:44 Last Admin: 11/24/17 12:54 Dose: 110 mls/hr eMAR Start Stop Document 11/24/17 12:54 SRE (Rec: 11/24/17 12:55 SRE [id number]) Intravenous Solution Start Date 11/24/17 Start Time 12:54 End Date 11/24/17 End time 13:55 Total Infusion Time 61 Insulin Human Regular (Humulin R) 8 units IVP STAT STA Stop: 11/24/17 11:46 Last Admin: 11/24/17 12:15 Dose: 8 units MAR Blood Glucose Document 11/24/17 12:15 SRE (Rec: 11/24/17 12:35 SRE [id number]) Blood Glucose Finger Stick Blood Glucose (70-120) 500 IVP Administration Document 11/24/17 12:15 SRE (Rec: 11/24/17 12:35 SRE [id number]) Charges for Administration # of IVP Administrations 1 Sodium Bicarbonate (Sodium Bicarbonate 8.4% (50 Meq) Syringe) 50 meq IVP ONCE ONE Stop: 11/24/17 12:23 Last Admin: 11/24/17 12:31 Dose: 50 meq IVP Administration Document 11/24/17 12:31 GMI (Rec: 11/24/17 12:31 GMI [facility] [id number]) Charges for Administration # of IVP Administrations 1 Sodium Polystyrene Sulfonate (Kayexalate Susp) 30 gm PO STAT STA Stop: 11/24/17 12:23 Last Admin: 11/24/17 12:42 Dose: 30 gm - Scribe Statement The provider has reviewed the documentation as recorded by the Scribe Documented by Liv Dow acting as a scribe for Randy Hurtado DO. Disposition/Present on Arrival - Present on Arrival Any Indicators Present on Arrival: No History of DVT/PE: No History of Uncontrolled Diabetes: No Urinary Catheter: No History of Decub. Ulcer: No History Surgical Site Infection Following: None - Disposition Have Diagnosis and Disposition been Completed?: Yes Diagnosis: DKA (diabetic ketoacidoses), Hyperkalemia, Acute on chronic renal failure, Severe sepsis Disposition: HOSPITALIZED Disposition Time: 11:56 Patient Plan: Admission Patient Problems: Current Active Problems Problem Status Onset DKA (diabetic ketoacidoses) Acute Hyperkalemia Acute Acute on chronic renal failure Acute Severe sepsis Acute Condition: CRITICAL
[2017-11-24 11:39] LABS: VENOUS BLOOD GAS BASE EXCESS -27.7 mmol/L (0.0-2.0); VENOUS BLOOD GAS PO2 76 mm/Hg (30-55)
[2017-11-24 11:43] VITALS: BMI 24.1
[2017-11-24 11:44] LABS: VENOUS BLOOD PH 6.89 (7.32-7.43)
[2017-11-24] MEDS ORDERED: Insulin Regular 1 UNITS/0.01 ML ML IVP STA (11:45)
[2017-11-24] MEDS ORDERED: Insulin Regular 100 UNITS in Sodium Chloride 0.9% 99 ML IV PRN ×3 (11:46→12:16)
[2017-11-24 11:48] LABS: BASO # 0.07 K/mm3 (0.0-2.0); BASO % 0.3 % (0.0-3.0); GRAN # 23.12 (1.4-6.5); GRAN % 91.6 % (50.0-68.0); HEMOGLOBIN 11.1 g/dL (14.0-18.0); LYMPH # 0.9 (1.2-3.4); LYMPH % 3.5 % (22.0-35.0); MEAN CELL VOLUME 86.3 fl (80.0-105.0); MEAN CORPUSCULAR HEMOGLOBIN 26.2 pg (25.0-35.0); MEAN CORPUSCULAR HGB CONC 30.4 g/dl (31.0-37.0); MEAN PLATELET VOLUME 11.4 fl (7.0-11.0); MONO # 1.2 (0.1-0.6); MONO % 4.6 % (1.0-6.0); PLATELET COUNT 402 10^3/uL (120.0-450.0); RBC 4.23 10^6/uL (3.5-6.1); RED CELL DISTRIBUTION WIDTH 14.6 % (11.5-14.5)
[2017-11-24 11:50] LABS: WHITE BLOOD COUNT 25.2 10^3/ul (4.5-11.0)
[2017-11-24 12:10] LABS: LYMPHOCYTE 3 % (22.0-35.0); MONOCYTE 4 % (1.0-6.0); NEUTROPHIL 93 % (50.0-70.0)
[2017-11-24 12:21] LABS: ALB/GLOB RATIO 1.2 (1.1-1.8); ALBUMIN 3.8 g/dL (3.0-4.8); ALT/SGPT 51 U/L (7-56); AST/SGOT 24 U/L (17-59); B-TYPE NATRIURETIC PEPTIDE 10900 pg/mL (0-450); BLOOD UREA NITROGEN 82 mg/dL (7-21); CALCIUM 8.8 mg/dL (8.4-10.5); GFR AFRICAN-AMERICAN 14; GFR NON-AFRICAN AMERICAN 12; TROPONIN I 0.48 ng/mL
[2017-11-24] MEDS ORDERED: Sod Polystyrene Sulf 15 gm/60 ml Susp PO STA (12:22)
[2017-11-24] MEDS ORDERED: Sodium Bicarbonate (8.4%) 50 Meq Syringe IVP ONE ×2 (12:22→12:30)
[2017-11-24] MEDS ORDERED: Sod Polystyrene Sulf 15 gm/60 ml Susp ONE (12:39)
--- NOTE | 2017-11-24 12:49 | PCM.SEPTIC ---
Sepsis Progress Note - Reassessment Type Date of Evaluation: 11/24/17 Time of Evaluation: 17:30 - Non Invasive Reassessment Vital Sign (Latest): Temp Pulse Resp BP Pulse Ox 92.8 F L 61 24 105/40 L 100 11/24/17 10:55 11/24/17 12:30 11/24/17 12:30 11/24/17 12:30 11/24/17 12:30
[2017-11-24 13:24] LABS: URINE BILIRUBIN SMALL (NEGATIVE); URINE BLOOD NEGATIVE (NEGATIVE); URINE GLUCOSE (UA) 500 mg/dL (NEGATIVE); URINE LEUKOCYTE ESTERASE NEGATIVE Leu/uL (NEGATIVE); URINE PROTEIN TRACE mg/dL (<30 mg/dL); URINE UROBILINOGEN 0.2 E.U./dL (<1 E.U./dL)
[2017-11-24 13:25] LABS: URINE APPEARANCE SL CLOUDY (CLEAR); URINE COLOR YELLOW (YELLOW)
--- NOTE | 2017-11-24 13:27 | CP.PCM.CON ---
History of Present Illness - History of Present Illness History of Present Illness: CRITICAL CARE CONSULT NOTE HPI Patient is 47yo male with PMHx of IDDM, HTN, CKD s/p renal transplant on immunosuppressants, presents with lethargy fatigue, and elevated BG readings at home. Pt is extremely poor historian, cannot prvide details, history gathered from ER staff. As per ER, patient noted elevated BG readings, and presented to the ER. In the ER patient found to have multiple lab derangements, including worsening renal failure, hyperkalemia, DKA, leukocytosis. Currently afebrile, HD stable, comfortable in NAD. Pt endorses fever, chills, cough, denies sob, cp. PMHx as above PSHx as above Allergies NKDA Meds as per EMR ROS as above FHx NC Review of Systems - Review of Systems Review of Systems: as per HPI Past Patient History - Infectious Disease Hx of Infectious Diseases: None - Tetanus Immunizations Tetanus Immunization: Unknown - Past Medical History & Family History Past Medical History?: Yes - Past Social History Smoking Status: Never Smoked - CARDIAC Hx Cardiac Disorders: Yes Hx Hypertension: Yes - PULMONARY Hx Respiratory Disorders: No - NEUROLOGICAL Hx Neurological Disorder: No Hx Seizures: No (denies) - HEENT Hx HEENT Problems: Yes (EYE SX O.U) - RENAL Hx Renal Failure: Yes - ENDOCRINE/METABOLIC Hx Diabetes Mellitus Type 1: Yes (since 13yo.) - HEMATOLOGICAL/ONCOLOGICAL Hx Blood Disorders: No - INTEGUMENTARY Hx Dermatological Problems: Yes Other/Comment: SCARRING TO BILATERAL FOOT. - MUSCULOSKELETAL/RHEUMATOLOGICAL Hx Musculoskeletal Disorders: Yes (RIGHT FOOT AND LEFT FOOT SX-R FOOT ORIF,) Hx Falls: No Other/Comment: CHARCOT FOOT - GASTROINTESTINAL Hx Gastrointestinal Disorders: Yes Hx Gastroesophageal Reflux: Yes (GERD) - GENITOURINARY/GYNECOLOGICAL Hx Genitourinary Disorders: Yes Hx Hematuria: Yes - PSYCHIATRIC Hx Emotional Abuse: No Hx Physical Abuse: No Hx Substance Use: No - SURGICAL HISTORY Hx Kidney Transplant: Yes (2010) Hx Musculoskeletal Surgery: Yes (RIGHT FOOT AND ANKLE X7) Hx Orthopedic Surgery: Yes (LEFT & RIGHT FOOT SURGERY ) Other/Comment: Right foot - ANESTHESIA Hx Anesthesia: Yes Hx Anesthesia Reactions: No Hx Malignant Hyperthermia: No Meds Allergies/Adverse Reactions: Allergies Allergy/AdvReac Type Severity Reaction Status Date / Time No Known Allergies Allergy Verified 03/17/18 12:19 - Medications Medications: Current Medications Insulin Human Regular 100 (units/ Sodium Chloride) 100 mls @ 7 mls/hr IV .[id number] PRN; Protocol; 7 UNITS/HR PRN Reason: TITRATE PER MD ORDER Last Admin: 11/24/17 12:20 Dose: 7 units/hr, 7 mls/hr Calcium Gluconate 1,000 mg/ (Sodium Chloride) 110 mls @ 110 mls/hr IVPB ONCE ONE Stop: 11/24/17 13:44 Last Admin: 11/24/17 12:54 Dose: 110 mls/hr Physical Exam - Constitutional Appears: No Acute Distress, Unkempt - Head Exam Head Exam: NORMAL INSPECTION - Eye Exam Eye Exam: Normal appearance - ENT Exam ENT Exam: Mucous Membranes Dry - Neck Exam Neck exam: Positive for: Full Rom - Respiratory Exam Respiratory Exam: Clear to Auscultation Bilateral, NORMAL BREATHING PATTERN - Cardiovascular Exam Cardiovascular Exam: REGULAR RHYTHM, +S1, +S2 - GI/Abdominal Exam GI & Abdominal Exam: Normal Bowel Sounds, Soft - Extremities Exam Additional comments: R foot plantar region with ecchymoses, fluctulant area Results - Vital Signs Recent Vital Signs: Last Vital Signs Temp 92.5 F L 11/24/17 13:13 Pulse 68 11/24/17 13:13 Resp 21 11/24/17 13:17 BP 101/53 L 11/24/17 13:17 Pulse Ox 100 11/24/17 13:17 - Labs Result Diagrams: 11/24/17 11:15 11/24/17 11:15 Labs: Laboratory Results - last 24 hr 11/24/17 12:16 POC Glucose (mg/dL) > 500 H* - Imaging and Cardiology Chest x-ray Status: Image reviewed by me Assessment & Plan - Assessment and Plan (Free Text) Assessment: 47yo male a/w DKA, Hyperkalemia, acute renal failure, dehydration, severe sepsis Severe Sepsis Acute on CKD Dehydration Hyperglycemia/DKA Hyperkalemia AMS Leukocytosis Pseudohyponatremia - currently afebrile, HD stable, comfortable in NAD, lethargic, but protecting airway - labs with multipl derangements - given 4L NS bolus in the ER, mcwilliams placed - Calcium, D50, Insulin 8u IVP, bicarb 1amp given Recommend: - supp o2 as needed - broad spectrum antibiotics, Vanco, Zosyn - ID consult - Surgical consult for LE wound - Check UCx, BCx, Procal, Rapid FLU - IVF hydration - NPO - Hold BP meds - check Mg, Phos - Insulin drip 0.1u/kg/hr - check Lipid Panel, HgbA1C - UA, Ulytes, TSH, Cortisol level - Cardiology consult - renal consult - ECHO - GI ppx - DVT ppx - admit to MICU Critical care time 35 minutes
[2017-11-24 13:33] LABS: URINE AMORPHOUS SEDIMENT SMALL; URINE EPITHELIAL CELLS 0 - 2 /hpf (0-5); URINE RBC 0 - 2 /hpf (0-2); URINE WBC 0 - 2 /hpf (0-6)
[2017-11-24] MEDS ORDERED: Influenza Vaccine 60 mcg/0.5 mL SYR (4YR UP) IM ONE (14:54)
[2017-11-24] MEDS ORDERED: Pneumococcal 23-Valent Vaccine IM ONE (14:54)
[2017-11-24] MEDS ORDERED: Lactated Ringer's 1,000 ML IV SCH (15:15)
[2017-11-24 15:38] LABS: VENOUS BLOOD GAS BASE EXCESS -20.1 mmol/L (0.0-2.0); VENOUS BLOOD GAS PO2 52 mm/Hg (30-55)
[2017-11-24 15:46] LABS: VENOUS BLOOD PH 7.11 (7.32-7.43)
[2017-11-24] MEDS ORDERED: DAPTOmycin 500 mg Inj (Cubicin) IV SCH (16:15)
[2017-11-24 16:26] LABS: CALCIUM 7.9 mg/dL (8.4-10.5)
--- NOTE | 2017-11-24 17:02 | RAD ---
HISTORY: sepsis COMPARISON: Comparison is made with 10/13/2012 FINDINGS: LUNGS: No evidence of new infiltrate or consolidation in the lungs. PLEURA: No significant pleural effusion identified, no pneumothorax apparent. CARDIOVASCULAR: Normal. OSSEOUS STRUCTURES: No significant abnormalities. VISUALIZED UPPER ABDOMEN: Normal. OTHER FINDINGS: None. IMPRESSION: No active disease.
[2017-11-24] MEDS ORDERED: Piperacillin/Tazobact 2.25gm 2.25 GM/100 ML BAG IVPB SCH (18:00)
[2017-11-24] MEDS: Insulin Regular 100 UNITS in Sodium Chloride 0.9% 99 ML IV PRN ×2 (19:23→21:49)
[2017-11-24] MEDS: Meropenem 500 MG in Sodium Chloride 0.9% 50 ML IVPB SCH (21:50)
[2017-11-24 22:13] LABS: CALCIUM 8.5 mg/dL (8.4-10.5)
[2017-11-25] MEDS ORDERED: Dextrose 5%/Lactated Ringer's 1,000 ML IV SCH (01:19)
--- NOTE | 2017-11-25 01:19 | CON ---
DATE: REASON FOR CONSULTATION: Atrial fibrillation. HISTORY OF PRESENT ILLNESS: The patient is a 47-year-old male, who has a history of longstanding diabetes mellitus, hypertension and chronic renal insufficiency, status post renal transplant, who is brought in by his fiancee to the emergency room because of uncontrolled diabetes mellitus as well as altered mental status. The patient has been experiencing vomiting since last night and was noticed to be drowsy by his fiancee. The patient has right foot infection, has been receiving antibiotics for it until he stopped taking them because of the vomiting. The patient denies any chest pain. HOME MEDICATIONS: Include Lipitor 20 mg once a day, prednisone 5 mg once a day, aspirin 81 mg once a day, Prograf 2 mg twice a day, Inderal 10 mg once a day, Plavix 75 mg once a day. PHYSICAL EXAMINATION: GENERAL: The patient is middle-aged male, who is confused to place and does not appear to be in respiratory distress at this time. VITAL SIGNS: Blood pressure 101/53, heart rate 68, temperature 92.5 rectally, respirations 21. HEENT: Normocephalic. CHEST: No rales, minimal rhonchi. HEART: S1 and S2 regular. ABDOMEN: Soft. EXTREMITIES: Right foot cellulitis with evidence of abscess formation on the sole of the right foot. Chest x-ray revealed mild cardiomegaly with prominent bronchovascular markings. LABORATORY DATA: CBC: WBC 25.2, hemoglobin 11.1, hematocrit 36.5, platelet count 402,000. SMA-7: Sodium 114, potassium 7.4, chloride 78, CO2 less than 5, glucose 960, BUN 82, creatinine 5.2, troponin 0.48. EKG reveals atrial fibrillation; however, sinus rhythm with APCs with attenuated waves cannot be completely excluded in the presence of hyperkalemia. The current rhythm on the monitor is sinus rhythm. Recent echocardiographic study last month revealed normal chamber size, normal ejection fraction and trace MR and trace TR. 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 Tibia and fibula x-ray, surgical hardware seen in the ankle. There has been previous ankle fusion with bone sclerosis and degeneration, difficult to exclude osteomyelitis. There has been removal of an intramedullary nuha in the distal fibula. Ankle x-ray, surgical hardware seen in the ankle, seen previous ankle fusion. There is bony sclerosis and degeneration, difficult to exclude osteomyelitis. There has been removal of intramedullary nuha in the distal tibia. ASSESSMENT: 1. Acute renal failure. The patient has a history of renal transplant. 2. Diabetic ketoacidosis. 3. Rule out underlying sepsis. 4. Right foot abscess, rule out underlying osteomyelitis. RECOMMENDATIONS: Case was discussed with the emergency room physician as well as camp recreation specialist. The patient will be admitted to the ICU, IV fluid therapy will be maintained. Kayexalate is being given. Obtain 2 sets of blood culture. Orthopedic consult is recommended as well as an ID consult. The sepsis is the right foot and surgical consult for possible incision and drainage is recommended. In the meantime, a repeat 12-lead EKG will be obtained and potassium level will be monitored closely. Benedicto Marsh MD
--- NOTE | 2017-11-25 01:55 | CON ---
DATE: ENDOCRINOLOGY CONSULT LOCATION: ICU 128, room 1. HISTORY OF PRESENT ILLNESS: This is a 47-year-old male with known history of type 1 insulin-dependent diabetes, presenting here with intractable vomiting episodes and marked hyperglycemic accelerations and has been evaluated to be in diabetic ketoacidosis and severe dehydration and is now being referred for diabetic evaluation and management. PAST MEDICAL HISTORY: As mentioned above, history of type 1 insulin-dependent diabetes, diagnosed since age 13 and has been very compliant with his insulin regimen and currently on a combination of Lantus given as 20 units subcu b.i.d. with NovoLog given as 18 units subcu t.i.d. before meals as per his Angélica oh. History of hypertensive cardiovascular disease and dyslipidemia, history of diabetic retinopathy, polyneuropathy and nephropathy with progressive renal insufficiency and as per the althea, his creatinine levels have been in the range of 4 to 5. He had a previous renal transplant about 6 years ago with his sister actually donating a kidney for him. He actually did not receive any hemodialysis at that time. He has since then been on immunosuppressive or antirejection therapy till the present time and is currently on prednisone at 5 mg daily and Prograf at 2 mg b.i.d. History of coronary artery disease and underlying peripheral arterial disease and vasculopathy. He has had multiple surgical procedures in both is right and left foot with an underlying Charcot foot and also had a previous fracture in the right ankle and underwent an open reduction and internal fixation procedure also. He also had the recent traumatic injury to the plantar surface of the right foot about a week ago and sustained a plantar infection, which progressively worsened and was seen by his primary physician and was given oral antibiotic therapy, which apparently caused some adverse side effects and supervening intractable vomiting episodes to the present time. History of previous laser surgeries to both eyes from underlying retinopathy as noted. FAMILY HISTORY: Positive for hypertension and heart disease. SOCIAL HISTORY: The patient has supportive family and lives with his althea, who is best support for his care. No known substance use. REVIEW OF SYSTEMS: As mentioned above. Has had increasing bouts of confusion, disorientation and generalized body weakness with increasing hypersomnolence and lethargy, worse today as per the althea. Also admits to dizziness and lightheadedness with bifrontal headaches and visual blurring associated with this hyperglycemic accelerations as noted. No chest pains, but admits to intermittent palpitations, again worse on the day of admission with progressive shortness of breath, initially on exertion, then at rest. His oral intake has been nil and suboptimal with intractable vomiting episodes yesterday till today with nausea, dyspepsia and vague upper abdominal pains. Also admits to marked polyuria, nocturia and polydipsia. PHYSICAL EXAMINATION: GENERAL: An average built male, in no apparent distress. VITAL SIGNS: Blood pressure of 110/70; pulse of 100 beats per minute, irregular; temperature 95; respirations 20. Height is 5 feet 8. Weight is 159 pounds. HEENT: Head normocephalic. Eyes anicteric with pink conjunctivae. Funduscopy not possible at this time. Ears, nose and throat otherwise normal. NECK: Supple. Thyroid gland is normal in size. No carotid bruits or any cervical adenopathy. CARDIOPULMONARY: Some adynamic precordium. S1, S2 are rapid and regular. LUNGS: Clear to auscultation. ABDOMEN: Flat, soft with positive bowel sounds. EXTREMITIES: No peripheral edema. Pulses are +2 bilaterally. The erythema and edema and the fluctuant area in the plantar surface of the right forefoot as noted. LABORATORY DATA: Laboratories initially showed a BUN of 82, sodium 114, potassium 7.4, chloride 78, CO2 is less than 5, glucose is 960 and creatinine is 5.2. His ProBNP is 10,900. The subsequent glucose values have ranged from 466 to over 500 mg/dL and the latest glucose tonight is 334 mg/dL. His WBC is 25.2, hemoglobin of 11, hematocrit of 36, MCV 86, platelets 402. ASSESSMENT: This is a 47-year-old male with uncontrolled and decompensated type 1 insulin-dependent diabetes, presenting here with severe diabetic ketoacidosis and dehydration with spurious hyponatremia and hyperkalemia on the background of chronic renal insufficiency with concomitant marked prerenal azotemia and acute renal failure and dehydration as noted thereof. He also has diabetic microvascular complications of retinopathy, polyneuropathy and nephropathy with a prior renal transplant and now developing progressive renal insufficiency with possible rejection and now has superimposed acute renal failure and prerenal azotemia as noted thereof. He also has diabetic macrovascular complications of coronary artery disease and peripheral arterial disease and vasculopathy and currently has the right foot plantar infection, which could also contribute to the upper mentioned metabolic decompensation and leukocytosis as noted thereof. However, also having severe diabetic ketoacidosis can also precipitate pseudoleukocytosis thereof. There is also a recent onset of rapid atrial fibrillation and the possibility always of an underlying autoimmune thyroid endocrinopathy has to be excluded at this time. PLAN: Plan of management as discussed with the nursing staff and also his dnayanceeAngélica, the imperative need for vigorous IV hydration and intensive insulin therapy with an insulin drip infusion will be continued at this time as ordered and concur with the present medical management in the ICU as noted. We will obtain serial chemistries and supplement accordingly as needed. We will also initiate a nutritional intake tomorrow morning starting at breakfast time with a consistent carb and heart healthy diet as ordered since the vomiting episodes have subsided today as noted. We will continue the vigorous IV hydration and intensive insulin therapy hoping to achieve a CO2 at least above 18 before we can switch over his insulin drip to a more physiological basal and bolus insulin drug combination as indicated. We will obtain a hemoglobin A1c and also baseline thyroid function studies as ordered. We will obtain serial chemistries and supplement accordingly as needed. We will follow and advise accordingly. Gaye Byrnes MD
--- NOTE | 2017-11-25 03:00 | CON ---
DATE: 11/24/2017 ORTHOPEDIC CONSULTATION HISTORY OF PRESENT ILLNESS: This is a 47-year-old male seen in the emergency room today on 11/24/2017 with obvious septic right ankle and postop infection from previous podiatry surgery for Charcot joint where he had multiple surgeries and finally having a talotibial calcaneal fusion with multiple plates and has at least six incisions over that right foot. As first time I am seeing him, there is no evidence of purulence, but the x-ray showed loosening of the majority of the hardware because of obvious sepsis and the patient has had picture of sepsis with a high white count of 25,000 with a shift to the right with multiple polys, 91%. Hemoglobin is stable at 11 g and 36% hematocrit. He has severe diabetes and a heart disease and he is going to be followed by multiple doctors; they asked me for Orthopedic consult. Right now, the right foot is swollen, but with good circulation, no evidence of abscesses. He does have a blood blister on the sole of his right foot. Being that he has had Charcot joint, but he does not have that much pain, but is extremely inflamed and hyperemic and he has been put on antibiotics. We will see how he responds to this because you do not want to operate right away without knowing what organisms are growing there and does not need anything; no cast at this time; we have to observe the foot and protect it with a pillow kind of splint and we will try to get a hold of the doctor who did the surgery, so they can follow him appropriately since they have operated on him multiple times, the first one being on the records, on 10/20/2016, 05/27/2014, and 11/10/2016. We will follow him medically with no plan for surgery at this time and he has an Infectious Disease consult.we need to contact the skein inspector that did the surgery at this hospital. Aurelio Lainez DO MAXWELL
--- NOTE | 2017-11-25 03:03 | CON ---
DATE: 11/24/2017 CHIEF COMPLAINT: Hypothermia x1 day. HISTORY OF PRESENT ILLNESS: This is a 47-year-old male with diabetes mellitus, hypertension, renal disease, coronary artery disease, Charcot foot, GERD, renal transplant six years ago, right ankle surgery many years ago. He is admitted now with diabetic ketoacidosis, and Infectious Disease consultation requested. REVIEW OF SYSTEMS: Reveal the patient has hypothermia. There is no chest pain. No shortness of breath or cough. No abdominal pain, diarrhea, or constipation. No bright red blood per rectum. PAST MEDICAL HISTORY: Significant for diabetes mellitus, kidney disease, hypertension, coronary artery disease, Charcot foot, GERD. PAST SURGICAL HISTORY: Significant for renal transplant done six years ago and right ankle surgery years ago. ALLERGIES: PATIENT HAS NO KNOWN ALLERGIES. MEDICATIONS AT HOME: Include omeprazole, insulin, Myfortic, prednisone, vitamins, propranolol, and Lipitor. PHYSICAL EXAMINATION: GENERAL: He is in bed, somewhat confused. He knows who he is and is not sure where is or what year it is. VITAL SIGNS: Temperature of 92.8, heart rate is 110, blood pressure is 95/49, respiratory rate of 24, O2 sat 90%. HEENT: Unremarkable. NECK: Supple. LUNGS: Have decreased breath sounds. HEART: Normal S1 and S2. ABDOMEN: Soft. No rebound. No guarding. No masses. No tenderness. Completely benign abdomen. EXTREMITIES: Examination of foot, right foot has large bullous lesion, edema, swollen, erythema and ulcer. There is streaking of the right leg. LABORATORY DATA: Reveals a white count of 25,000, hemoglobin of 11, platelets of 402, 93% polys. Blood gases are noted. BUN of 82, creatinine of 5.2, creatinine prior to that on 10/24 was 1.6 and troponin is elevated and BNP is elevated with an alk phos of 231. Urinalysis is unremarkable. Chest x-ray is pending. ASSESSMENT AND PLAN: This is a 47-year-old male with diabetes mellitus, kidney disease, hypertension, renal transplant, coronary artery disease, Charcot foot, gastroesophageal reflux disease with severe sepsis with right foot cellulitis and right leg streaking with acute kidney injury on top of chronic renal failure in a patient with renal transplant, anemia, suppressive medications and with elevated troponins and must rule out non-ST elevation myocardial infarction, must also rule out gastrointestinal pathology such as in acute cholecystitis with an elevated alkaline phosphatase. Recommend when the patient is stable to get a CAT scan of the abdomen and pelvis. Recommend Podiatry consultation and a vascular workup. We will treat the patient with daptomycin and meropenem. Pending blood cultures, urine cultures, wound cultures, and on daptomycin and meropenem. We will follow with you. Paulino Mota MD
[2017-11-25 04:46] LABS: ALBUMIN 3.2 g/dL (3.0-4.8); CALCIUM 8.8 mg/dL (8.4-10.5)
[2017-11-25 04:52] LABS: T4 4.5 ug/dL (5.5-11.0)
[2017-11-25 09:41] LABS: HEMOGLOBIN 10.2 g/dL (14.0-18.0); MEAN CORPUSCULAR HGB CONC 35.3 g/dl (31.0-37.0); MEAN PLATELET VOLUME 9.6 fl (7.0-11.0); RBC 3.92 10^6/uL (3.5-6.1); RED CELL DISTRIBUTION WIDTH 14.2 % (11.5-14.5); WHITE BLOOD COUNT 21.5 10^3/ul (4.5-11.0)
[2017-11-25 09:42] LABS: MEAN CELL VOLUME 73.7 fl (80.0-105.0)
[2017-11-25 09:55] LABS: CALCIUM 8.8 mg/dL (8.4-10.5)
[2017-11-25] MEDS ORDERED: Vancomycin 1gm in NS 250ml 1 GM/250 ML BAG IVPB SCH (10:00)
[2017-11-25] MEDS ORDERED: MYCOPHENOLATE SODIUM 720 MG PO SCH (10:00)
[2017-11-25] MEDS ORDERED: MYCOPHENOLATE SODIUM PO SCH (10:00)
[2017-11-25] MEDS: Meropenem 500 MG in Sodium Chloride 0.9% 50 ML IVPB SCH ×2 (10:00→22:00)
--- NOTE | 2017-11-25 10:32 | CARD ---
APPROVED REPORT EKG Measurement Heart [id number] <Conclusion> Atrial fibrillation, new RAD ST elevation in 3 STTW changes c/w ischemia, new c/w ECG 10/13/12
--- NOTE | 2017-11-25 10:40 | CARD ---
APPROVED REPORT EKG Measurement Heart [id number] <Conclusion> Normal sinus rhythm, new since ECG earlier in the day STTW changes c/w ischemia Prolonged QT
[2017-11-25] MEDS ORDERED: MYCOPHENOLATE PO SCH (11:33)
--- NOTE | 2017-11-25 11:34 | PN ---
DATE: 11/25/2017 SUBJECTIVE: The patient is in bed, in no acute distress, nontoxic. He is much better this morning. He is awake and alert. PHYSICAL EXAMINATION: VITAL SIGNS: Temperature is 98, blood pressure is 150/70, respiratory rate of 21, heart rate of 102. HEENT: Examination of HEENT is unremarkable. NECK: Supple. LUNGS: Decreased breath sounds. HEART: Normal S1, S2. ABDOMEN: Soft. EXTREMITIES: Examination of leg is improved. The streaking up his right leg is much improved. The foot is less swollen. LABORATORY EXAMINATION: Reveals a white count of 25,000, hemoglobin 11. Chemistries reveals the patient's BUN of 81, creatinine is 3.8 and urinalysis is noted. Microbiology reveals the cultures are pending. Gram stain of the foot aspirate by the surgeon shows a gram-positive cocci. Review of orders reveals the patient to have daptomycin, meropenem. ASSESSMENT AND PLAN: A 47-year-old male with diabetes mellitus, kidney disease, hypertension, renal transplant, coronary artery disease, Charcot's foot, gastroesophageal reflux disease, who is admitted with severe sepsis with a right foot cellulitis and right leg streaking with acute kidney injury on top of chronic renal disease with renal transplant, on immunosuppressive medications with [id number] myocardial infarction and must rule out gastrointestinal pathology, high alk phos. Once the patient is stabilized, I would recommend a CAT scan of the abdomen and pelvis to rule out gallbladder disease and podiatric consultation. Recommended currently on daptomycin and meropenem pending panculture results, initial workup results. He should have imaging of the right foot. The patient does have hardware in that foot and ankle. Paulino Mota MD
[2017-11-25] MEDS: Insulin Lispro 1 UNITS/0.01 ML SC SCH ×2 (12:00→17:00)
--- NOTE | 2017-11-25 12:13 | CP.PCM.PN ---
Subjective - Date & Time of Evaluation Date of Evaluation: 11/25/17 Time of Evaluation: 07:15 - Subjective Subjective: Pt seen and examined, reports to be feeling significantly better. Denies any major complaints. Objective - Vital Signs/Intake and Output Vital Signs (last 24 hours): Temp Pulse Resp BP Pulse Ox 98.8 F 104 H 18 168/95 H 95 11/25/17 06:30 11/25/17 12:03 11/25/17 06:30 11/25/17 12:03 11/25/17 06:30 Intake and Output: 11/25/17 11/25/17 06:59 18:59 Intake Total 1500 70 Output Total 2200 Balance -700 70 - Medications Medications: Current Medications Aspirin (Aspirin Chewable) 81 mg PO DAILY [facility] Last Admin: 11/25/17 10:00 Dose: 81 mg Atorvastatin Calcium (Lipitor) 40 mg PO DIN [facility] Home Med (Home Med) 360 unit PO BID [facility] Hydralazine HCl (Apresoline) 10 mg IVP Q6 [facility] Last Admin: 11/25/17 12:03 Dose: 10 mg Meropenem 500 mg/ Sodium (Chloride) 50 mls @ 100 mls/hr IVPB Q12 [facility] PRN Reason: Protocol Stop: 12/03/17 22:01 Last Admin: 11/25/17 10:00 Dose: 100 mls/hr Daptomycin 430 mg/ Sodium (Chloride) 100 mls @ 200 mls/hr IV Q48H [facility] Stop: 12/03/17 16:16 Last Admin: 11/24/17 19:07 Dose: 200 mls/hr Potassium Chloride 10 meq/ (Sodium Chloride) 1,005 mls @ 150 mls/hr IV .Q6H42M [facility] Insulin Detemir (Levemir) 30 unit SC HS [facility] Insulin Human Lispro (Humalog Low) 0 units SC ACHS [facility] PRN Reason: Protocol Insulin Human Lispro (Humalog) 10 units SC AC [facility] Last Admin: 11/25/17 12:00 Dose: 10 units Prednisone (Prednisone Tab) 5 mg PO DAILY [facility] Last Admin: 11/25/17 10:00 Dose: 5 mg Tacrolimus (Prograf Cap) 2 mg PO BID [facility] Last Admin: 11/25/17 10:00 Dose: 2 mg - Labs Labs: 11/25/17 09:30 11/25/17 09:44 - Constitutional Appears: Non-toxic, No Acute Distress - Head Exam Head Exam: NORMAL INSPECTION - Eye Exam Eye Exam: Normal appearance - ENT Exam ENT Exam: Mucous Membranes Moist - Respiratory Exam Respiratory Exam: Clear to Ausculation Bilateral, NORMAL BREATHING PATTERN - Cardiovascular Exam Cardiovascular Exam: REGULAR RHYTHM, +S1, +S2 - GI/Abdominal Exam GI & Abdominal Exam: Soft, Normal Bowel Sounds - Neurological Exam Neurological Exam: Alert, Awake, Oriented x3 Neuro motor strength exam: Left Upper Extremity: 5, Right Upper Extremity: 5, Left Lower Extremity: 5, Right Lower Extremity: 5 Assessment and Plan - Assessment and Plan (Free Text) Assessment: 47yo male a/w DKA, Hyperkalemia, acute renal failure, dehydration, severe sepsis Severe Sepsis Acute on CKD Dehydration Hyperglycemia/DKA Hyperkalemia, resolved AMS, resolved Leukocytosis - currently afebrile, HD stable, comfortable in NAD, AAOx3 - labs with improving renal function Recommend: - supp o2 as needed - broad spectrum antibiotics, as per ID - ID follow up - follow up cultures - IVF hydration - NPO - resume immunosuppressants - check Mg, Phos - Insulin drip 0.1u/kg/hr, repeat BMP - check Lipid Panel, HgbA1C - Cardiology follow up - renal follow up - ECHO - GI ppx - DVT ppx - monitor in MICU Critical care time 30 minutes
[2017-11-25] MEDS ORDERED: MYCOPHENOLIC ACID PO SCH ×2 (13:36→13:38)
[2017-11-25] MEDS ORDERED: MYCOPHENOLIC ACID PO STA (13:58)
--- NOTE | 2017-11-25 14:39 | CP.PCM.CON ---
History of Present Illness - History of Present Illness History of Present Illness: Podiatry Progress Note - Dr. Rui Whyte 47 y/o male seen and evaluated by podiatry today after consultation for right foot blisters. Pt says he noticed the blisters a few days ago and says they have been getting progressively darker the last few days. Denies any trauma. Pt is a known patient to Dr. Jose Angel Sheets DPM and follows up with him regularly. States he has not seen him in a month or two but plans to follow up with him in the next few weeks. At present, admits that he had chills over the last couple of days. Denies F/N/V/CP/SOB. PMH: IDDM, CKD, HTN PSH: kidney transplant, right ankle arthrodesis with internal fixation All: NKDA Social Hx: denies cigarette, illicit drug use Fam Hx: (+) for diabetes Review of Systems - Review of Systems All systems: reviewed and no additional remarkable complaints except (per HPI) Past Patient History - Infectious Disease Hx of Infectious Diseases: None - Tetanus Immunizations Tetanus Immunization: Unknown - Past Medical History & Family History Past Medical History?: Yes - Past Social History Smoking Status: Never Smoked - CARDIAC Hx Cardiac Disorders: Yes Hx Hypertension: Yes - PULMONARY Hx Respiratory Disorders: No - NEUROLOGICAL Hx Neurological Disorder: No Hx Seizures: No (denies) - HEENT Hx HEENT Problems: Yes (EYE SX O.U) - RENAL Hx Renal Failure: Yes - ENDOCRINE/METABOLIC Hx Diabetes Mellitus Type 1: Yes (since 13yo.) - HEMATOLOGICAL/ONCOLOGICAL Hx Blood Disorders: No - INTEGUMENTARY Hx Dermatological Problems: Yes Other/Comment: SCARRING TO BILATERAL FOOT. - MUSCULOSKELETAL/RHEUMATOLOGICAL Hx Musculoskeletal Disorders: Yes (RIGHT FOOT AND LEFT FOOT SX-R FOOT ORIF,) Hx Falls: No Other/Comment: CHARCOT FOOT - GASTROINTESTINAL Hx Gastrointestinal Disorders: Yes Hx Gastroesophageal Reflux: Yes (GERD) - GENITOURINARY/GYNECOLOGICAL Hx Genitourinary Disorders: Yes Hx Hematuria: Yes - PSYCHIATRIC Hx Emotional Abuse: No Hx Physical Abuse: No Hx Substance Use: No - SURGICAL HISTORY Hx Kidney Transplant: Yes (2010) Hx Musculoskeletal Surgery: Yes (RIGHT FOOT AND ANKLE X7) Hx Orthopedic Surgery: Yes (LEFT & RIGHT FOOT SURGERY ) Other/Comment: Right foot - ANESTHESIA Hx Anesthesia: Yes Hx Anesthesia Reactions: No Hx Malignant Hyperthermia: No Meds Allergies/Adverse Reactions: Allergies Allergy/AdvReac Type Severity Reaction Status Date / Time No Known Allergies Allergy Verified 11/24/17 12:19 - Medications Medications: Current Medications Aspirin (Aspirin Chewable) 81 mg PO DAILY [facility] Last Admin: 11/25/17 10:00 Dose: 81 mg Atorvastatin Calcium (Lipitor) 40 mg PO DIN [facility] Home Med (Home Med) 2 unit PO 0900,2100 [facility] Hydralazine HCl (Apresoline) 10 mg IVP Q6 [facility] Last Admin: 11/25/17 12:03 Dose: 10 mg Meropenem 500 mg/ Sodium (Chloride) 50 mls @ 100 mls/hr IVPB Q12 [facility] PRN Reason: Protocol Stop: 12/03/17 22:01 Last Admin: 11/25/17 10:00 Dose: 100 mls/hr Daptomycin 430 mg/ Sodium (Chloride) 100 mls @ 200 mls/hr IV Q48H [facility] Stop: 12/03/17 16:16 Last Admin: 11/24/17 19:07 Dose: 200 mls/hr Potassium Chloride 10 meq/ (Sodium Chloride) 1,005 mls @ 150 mls/hr IV .Q6H42M [facility] Last Admin: 11/25/17 13:00 Dose: 150 mls/hr Insulin Detemir (Levemir) 30 unit SC HS [facility] Insulin Human Lispro (Humalog Low) 0 units SC ACHS [facility] PRN Reason: Protocol Insulin Human Lispro (Humalog) 10 units SC AC [facility] Last Admin: 11/25/17 12:00 Dose: 10 units Prednisone (Prednisone Tab) 5 mg PO DAILY [facility] Last Admin: 11/25/17 10:00 Dose: 5 mg Tacrolimus (Prograf Cap) 2 mg PO BID [facility] Last Admin: 11/25/17 10:00 Dose: 2 mg Physical Exam - Constitutional Appears: Well, Non-toxic, No Acute Distress - Extremities Exam Additional comments: Right lower extremity focused exam: Vasc: DP/PT pulses faintly palpable 1/4. +2 pitting edema noted to entirety of right foot. Ischemic changes noted to 4th digit. Derm: Blood-filled bullae noted to medial aspect of 4th digit within interspace and plantar aspect of right forefoot at level of sub met 4. Bullae are boggy in nature. Thin dark red fluid drained from bullae sites. No purulence expressed upon lancing of bullae. Proximal to sub met 4 bullae there is a circular hyperkeratotic skin lesion approx 0.8cm in diameter. Additional blood filled bullae vs deep tissue injury noted to plantar medial arch. Neuro: Protective sensation grossly diminished Ortho: R Charcot foot deformity noted - Neurological Exam Neurological exam: Alert, Oriented x3 - Psychiatric Exam Psychiatric exam: Normal Affect, Normal Mood Results - Vital Signs Recent Vital Signs: Last Vital Signs Temp 98.8 F 11/25/17 06:30 Pulse 104 H 11/25/17 12:03 Resp 18 11/25/17 06:30 BP 168/95 H 11/25/17 12:03 Pulse Ox 95 11/25/17 06:30 - Labs Result Diagrams: 11/25/17 09:30 11/25/17 16:00 Labs: Laboratory Results - last 24 hr 11/24/17 11/24/17 11/24/17 15:15 15:20 15:58 WBC RBC Hgb Hct MCV MCH MCHC RDW Plt Count MPV pO2 52 VBG pH 7.11 L* VBG pCO2 25.0 L VBG HCO3 7.9 L VBG Total CO2 8.7 L VBG O2 Sat (Calc) 88.9 H VBG Base Excess -20.1 L VBG Potassium 5.6 H Glucose 693 H* Lactate 1.6 FiO2 21.0 Sodium 122 L 122.0 L Potassium 5.6 H* D Chloride 89 L 88.0 L Carbon Dioxide 7 L D Anion Gap 32 H BUN 80 H Creatinine 4.8 H Est GFR ( Amer) 16 Est GFR (Non-Af Amer) 13 POC Glucose (mg/dL) 466 H* Random Glucose 634 H* D Calcium 7.9 L Phosphorus Magnesium Total Bilirubin AST ALT Alkaline Phosphatase Total Protein Albumin Globulin Albumin/Globulin Ratio Triglycerides 233 H Cholesterol 124 L LDL Cholesterol Direct 41 HDL Cholesterol 27 L Procalcitonin Thyroxine (T4) TSH 3rd Generation Cortisol AM Sample Venous Blood Potassium 5.6 H 11/24/17 11/24/17 11/24/17 16:51 17:58 19:16 WBC RBC Hgb Hct MCV MCH MCHC RDW Plt Count MPV pO2 VBG pH VBG pCO2 VBG HCO3 VBG Total CO2 VBG O2 Sat (Calc) VBG Base Excess VBG Potassium Glucose Lactate FiO2 Sodium Potassium Chloride Carbon Dioxide Anion Gap BUN Creatinine Est GFR ( Amer) Est GFR (Non-Af Amer) POC Glucose (mg/dL) 424 H* 434 H* 417 H* Random Glucose Calcium Phosphorus Magnesium Total Bilirubin AST ALT Alkaline Phosphatase Total Protein Albumin Globulin Albumin/Globulin Ratio Triglycerides Cholesterol LDL Cholesterol Direct HDL Cholesterol Procalcitonin Thyroxine (T4) TSH 3rd Generation Cortisol AM Sample Venous Blood Potassium 11/24/17 11/24/17 11/24/17 20:12 21:50 21:50 WBC RBC Hgb Hct MCV MCH MCHC RDW Plt Count MPV pO2 VBG pH VBG pCO2 VBG HCO3 VBG Total CO2 VBG O2 Sat (Calc) VBG Base Excess VBG Potassium Glucose Lactate FiO2 Sodium 127 L Potassium 4.2 Chloride 94 L Carbon Dioxide 13 L Anion Gap 24 H BUN 85 H Creatinine 4.5 H Est GFR ( Amer) 17 Est GFR (Non-Af Amer) 14 POC Glucose (mg/dL) 366 H Random Glucose 406 H* D Calcium 8.5 Phosphorus Magnesium Total Bilirubin AST ALT Alkaline Phosphatase Total Protein Albumin Globulin Albumin/Globulin Ratio Triglycerides Cholesterol LDL Cholesterol Direct HDL Cholesterol Procalcitonin 7.95 H Thyroxine (T4) TSH 3rd Generation Cortisol AM Sample Venous Blood Potassium 11/24/17 11/24/17 11/25/17 21:57 23:09 00:11 WBC RBC Hgb Hct MCV MCH MCHC RDW Plt Count MPV pO2 VBG pH VBG pCO2 VBG HCO3 VBG Total CO2 VBG O2 Sat (Calc) VBG Base Excess VBG Potassium Glucose Lactate FiO2 Sodium Potassium Chloride Carbon Dioxide Anion Gap BUN Creatinine Est GFR ( Amer) Est GFR (Non-Af Amer) POC Glucose (mg/dL) 334 H 279 H 239 H Random Glucose Calcium Phosphorus Magnesium Total Bilirubin AST ALT Alkaline Phosphatase Total Protein Albumin Globulin Albumin/Globulin Ratio Triglycerides Cholesterol LDL Cholesterol Direct HDL Cholesterol Procalcitonin Thyroxine (T4) TSH 3rd Generation Cortisol AM Sample Venous Blood Potassium 11/25/17 11/25/17 11/25/17 01:03 02:11 03:12 WBC RBC Hgb Hct MCV MCH MCHC RDW Plt Count MPV pO2 VBG pH VBG pCO2 VBG HCO3 VBG Total CO2 VBG O2 Sat (Calc) VBG Base Excess VBG Potassium Glucose Lactate FiO2 Sodium Potassium Chloride Carbon Dioxide Anion Gap BUN Creatinine Est GFR ( Amer) Est GFR (Non-Af Amer) POC Glucose (mg/dL) 221 H 192 H 180 H Random Glucose Calcium Phosphorus Magnesium Total Bilirubin AST ALT Alkaline Phosphatase Total Protein Albumin Globulin Albumin/Globulin Ratio Triglycerides Cholesterol LDL Cholesterol Direct HDL Cholesterol Procalcitonin Thyroxine (T4) TSH 3rd Generation Cortisol AM Sample Venous Blood Potassium 11/25/17 11/25/17 11/25/17 04:05 04:05 04:05 WBC RBC Hgb Hct MCV MCH MCHC RDW Plt Count MPV pO2 VBG pH VBG pCO2 VBG HCO3 VBG Total CO2 VBG O2 Sat (Calc) VBG Base Excess VBG Potassium Glucose Lactate FiO2 Sodium 135 Potassium 3.7 Chloride 100 Carbon Dioxide 18 L Anion Gap 22 H BUN 81 H Creatinine 3.8 H Est GFR ( Amer) 21 Est GFR (Non-Af Amer) 17 POC Glucose (mg/dL) Random Glucose 211 H Calcium 8.8 Phosphorus 4.7 H Magnesium 2.1 Total Bilirubin 0.4 AST 23 ALT 46 Alkaline Phosphatase 195 H Total Protein 6.2 Albumin 3.2 Globulin 3.1 Albumin/Globulin Ratio 1.0 L Triglycerides Cholesterol LDL Cholesterol Direct HDL Cholesterol Procalcitonin Thyroxine (T4) 4.5 L TSH 3rd Generation 0.49 Cortisol AM Sample 53.8 H Venous Blood Potassium 11/25/17 11/25/17 11/25/17 04:07 05:12 06:02 WBC RBC Hgb Hct MCV MCH MCHC RDW Plt Count MPV pO2 VBG pH VBG pCO2 VBG HCO3 VBG Total CO2 VBG O2 Sat (Calc) VBG Base Excess VBG Potassium Glucose Lactate FiO2 Sodium Potassium Chloride Carbon Dioxide Anion Gap BUN Creatinine Est GFR ( Amer) Est GFR (Non-Af Amer) POC Glucose (mg/dL) 184 H 184 H 197 H Random Glucose Calcium Phosphorus Magnesium Total Bilirubin AST ALT Alkaline Phosphatase Total Protein Albumin Globulin Albumin/Globulin Ratio Triglycerides Cholesterol LDL Cholesterol Direct HDL Cholesterol Procalcitonin Thyroxine (T4) TSH 3rd Generation Cortisol AM Sample Venous Blood Potassium 11/25/17 11/25/17 11/25/17 07:13 08:17 09:07 WBC RBC Hgb Hct MCV MCH MCHC RDW Plt Count MPV pO2 VBG pH VBG pCO2 VBG HCO3 VBG Total CO2 VBG O2 Sat (Calc) VBG Base Excess VBG Potassium Glucose Lactate FiO2 Sodium Potassium Chloride Carbon Dioxide Anion Gap BUN Creatinine Est GFR ( Amer) Est GFR (Non-Af Amer) POC Glucose (mg/dL) 219 H 214 H 244 H Random Glucose Calcium Phosphorus Magnesium Total Bilirubin AST ALT Alkaline Phosphatase Total Protein Albumin Globulin Albumin/Globulin Ratio Triglycerides Cholesterol LDL Cholesterol Direct HDL Cholesterol Procalcitonin Thyroxine (T4) TSH 3rd Generation Cortisol AM Sample Venous Blood Potassium 11/25/17 11/25/17 11/25/17 09:30 09:44 10:01 WBC 21.5 H RBC 3.92 Hgb 10.2 L Hct 28.9 L MCV 73.7 L D MCH 26.0 MCHC 35.3 RDW 14.2 Plt Count 350 MPV 9.6 pO2 VBG pH VBG pCO2 VBG HCO3 VBG Total CO2 VBG O2 Sat (Calc) VBG Base Excess VBG Potassium Glucose Lactate FiO2 Sodium 135 Potassium 3.4 L Chloride 101 Carbon Dioxide 19 L Anion Gap 18 BUN 77 H Creatinine 3.3 H Est GFR ( Amer) 24 Est GFR (Non-Af Amer) 20 POC Glucose (mg/dL) 242 H Random Glucose 271 H Calcium 8.8 Phosphorus Magnesium Total Bilirubin AST ALT Alkaline Phosphatase Total Protein Albumin Globulin Albumin/Globulin Ratio Triglycerides Cholesterol LDL Cholesterol Direct HDL Cholesterol Procalcitonin Thyroxine (T4) TSH 3rd Generation Cortisol AM Sample Venous Blood Potassium 11/25/17 10:51 WBC RBC Hgb Hct MCV MCH MCHC RDW Plt Count MPV pO2 VBG pH VBG pCO2 VBG HCO3 VBG Total CO2 VBG O2 Sat (Calc) VBG Base Excess VBG Potassium Glucose Lactate FiO2 Sodium Potassium Chloride Carbon Dioxide Anion Gap BUN Creatinine Est GFR ( Amer) Est GFR (Non-Af Amer) POC Glucose (mg/dL) 224 H Random Glucose Calcium Phosphorus Magnesium Total Bilirubin AST ALT Alkaline Phosphatase Total Protein Albumin Globulin Albumin/Globulin Ratio Triglycerides Cholesterol LDL Cholesterol Direct HDL Cholesterol Procalcitonin Thyroxine (T4) TSH 3rd Generation Cortisol AM Sample Venous Blood Potassium Assessment & Plan - Assessment and Plan (Free Text) Assessment: 47 y/o male with right foot gas gangrene with sepsis Plan: Pt seen and evaluated at bedside Discussed plan with attending Dr. Rui Whyte Labs and vitals reviewed- WBC 21.9, Tmin 92.5 (afebrile at present) X-rays of R foot reveal soft tissue emphysema at level of 4th digit middle and proximal phalanges and metatarsal head, evidence of foreign body at level of plantar sub met 3-4 at level of metatarsal necks Discussed with Dr. Marsh - agrees that pt must go for I&D emergently at this time Confirmed with Dr. Perez that while pt is not able to be medically optimized , surgery is mandatory at this time and we may proceed Pt NPO after 1pm today Pt to go to OR for emergent I&D of right foot gas gangrene Surgical consent signed by pt after careful explanation of all risks, benefits, alternatives and complications of procedure Pt agreeable for surgery at this time; discussed with pamela who agrees this is the best course of action Podiatry will continue to follow patient while in house
[2017-11-25 16:56] LABS: CALCIUM 8.9 mg/dL (8.4-10.5)
--- NOTE | 2017-11-25 17:05 | US ---
PROCEDURE: Ultrasound of the Kidneys HISTORY: Renal failure COMPARISON: None available. TECHNIQUE: Sonogram of the kidneys. FINDINGS: RIGHT KIDNEY: Measures: 7.5 x 4.22 x 3.66 cm. The right kidney is small in size echogenic suggestive of chronic kidney disease No stone, solid mass lesion or hydronephrosis visualized. LEFT KIDNEY: Measures: 8.12 x 4.0 by a 3.66 cm. The left kidney is also small in size echogenic suggestive of chronic kidney disease No stone, solid mass lesion or hydronephrosis visualized. OTHER FINDINGS: At the left lower quadrant there is a transplanted kidney which measures 11.9 x 5.5 x 5.2 centimeter demonstrate normal echogenicity without evidence of hydronephrosis. IMPRESSION: Normal appearance of the transplanted kidney at the left lower quadrant. The [place] kidneys are small in size and echogenic.
[2017-11-25] MEDS ORDERED: Midazolam 2 MG/2 ML VIAL ONE (17:36)
[2017-11-25] MEDS ORDERED: Lidocaine 1% Inj (20ml) ONE (17:41)
--- NOTE | 2017-11-25 18:25 | PCM.SURG1 ---
Surgeon's Initial Post Op Note - Surgeon's Notes Surgeon: Dr. Rui Whyte Online Editor: Dr. Ernestina Armstrong Type of Anesthesia: IV Sedation Anesthesia Administered By: Dr. Can Pre-Operative Diagnosis: right foot gas gangrene Operative Findings: see operative report. I: 6cc 1% lidocaine plain. M: 1 inch iodoform packing Post-Operative Diagnosis: right foot gas gangrene Operation Performed: right foot incision and drainage Specimen/Specimens Removed: non-viable tissue Estimated Blood Loss: EBL {In ML}: 5 Blood Products Given: N/A Drains Used: No Drains Post-Op Condition: Good Date of Surgery/Procedure: 11/25/17 Time of Surgery/Procedure: 18:24
--- NOTE | 2017-11-25 18:57 | PN ---
DATE: SUBJECTIVE: The patient is oriented, coherent and is comfortable and is able to give reliable history. The patient had renal transplant about 5 years ago, his sister donated a kidney and at that time the patient did not require any hemodialysis. The patient was admitted 3 weeks ago with CVA with residual left hemiparesis from which the patient recovered completely. The patient's right foot surgery dates back to many years ago when a 30-pound metallic object fell on his foot while at work. The patient denies any chest pain at this time. PHYSICAL EXAMINATION: VITAL SIGNS: Blood pressure 168/95, heart rate 104, temperature 98.8, respirations 18. HEENT: Normocephalic. CHEST: Minimal basal rhonchi. HEART: S1 and S2 regular. ABDOMEN: Soft. EXTREMITIES: Cellulitis and possibly abscess formation involving the sole of the right foot. LABORATORY DATA: Hemoglobin and hematocrit 10.2 and 28.9, white count of 21.5 thousand, platelet count 350,000. SMA-7: Sodium 135, potassium 3.4, chloride 101, CO2 of 19, glucose 171, BUN 77, creatinine 3.3. A repeat EKG yesterday revealed sinus rhythm at a rate of 63 with prolonged QT interval, although official reading is ST-T wave changes consistent with ischemia. I myself considered them to be nonspecific. Renal ultrasound and venous Doppler of the lower extremities were done, but the report is still pending. The most recent brain MRI on 10/23/2017 revealed acute infarct in the right medial thalamus and superolateral right cerebral peduncle. ASSESSMENT: 1. Right foot cellulitis. 2. Acute renal failure. 3. Anemia. 4. Improved hypokalemia. 5. History of recent stroke. RECOMMENDATIONS: Continue IV hydralazine 10 mg q.6 hours p.r.n., continue aspirin 81 mg once a day, daptomycin mg q.48 hours, Lipitor 40 mg once a day, meropenem 500 mg intravenously q.12 hours. The patient is receiving IV potassium replacement today totalling 10 mEq. Continue prednisone and Prograf. The most recent echocardiographic study last month revealed normal chamber size with normal ejection fraction. I did review the orthopedic consultation, which recommended no plans for surgery at this time and we need to contact the decal maker who did the earlier surgery. Benedicto Marsh MD [facility] # [id number]
--- NOTE | 2017-11-25 19:23 | PN ---
DATE: ENDOCRINOLOGY FOLLOWUP NOTE LOCATION: ICU 128, room 1. SUBJECTIVE: This is a 47-year-old male with recent uncontrolled type 2 insulin-requiring diabetes, presenting here with severe diabetic ketoacidosis and dehydration and has improved clinically and metabolically overnight with the initiation of the vigorous IV hydration and intensive insulin therapy as given. His oral intake has improved and he has started on his oral intake at this time, started this morning with breakfast as per nursing staff. His latest glucose levels today have ranged from 224 to 242 mg/dL. His latest chemistry showed a BUN of 77, sodium 135, potassium 3.4, CO2 of 19, chloride 101, glucose 271, and creatinine 3.3 which has improved accordingly since yesterday's admission levels. ASSESSMENT: This is a 47-year-old male with uncontrolled and decompensated type 2 insulin-requiring diabetes, presenting here with diabetic ketoacidosis and dehydration as noted thereof. He also has diabetic microvascular complications of retinopathy, polyneuropathy, and nephropathy with a prior renal transplant and currently has progressive renal insufficiency, possibly a rejection phenomenon and this is being followed closely by Nephrology in the outpatient as noted. He also has diabetic macrovascular complications of coronary artery disease and peripheral arterial disease and vasculopathy as mentioned. PLAN OF MANAGEMENT: We will continue the vigorous IV hydration at this time to replenish the lost fluids and electrolytes from the increased osmotic diuresis thereof and change his IVs to half normal saline with KCl 10 mEq running at 150 mL/hour to start this morning. We will switch him over now to a more physiologic basal and bolus insulin regimen with a combination of Humalog given as 10 units subcu t.i.d. before meals to start at lunchtime today as ordered. We will also add basal insulin with Levemir given as 30 units subcu at bedtime daily to start tonight. We will discontinue his insulin drip infusion and modify the coverage scale to fingersticks done a.c. and at bedtime with low-dose Humalog coverage to obviate hypoglycemia and detailed orders have been given. We will obtain serial chemistries and supplement accordingly as needed. We will follow. Gaye Byrnes MD
--- NOTE | 2017-11-25 20:29 | CON ---
DATE: 11/25/2017 The patient admitted for Dr. Dwight Lucio and Dr. Clinton Lucio. REFERRING PHYSICIAN: Dr. Lucio. REASON FOR CONSULTATION: Evaluation of a patient unknown to me with a history of a kidney transplant who presents with acute renal failure in the setting of life-threatening hyperkalemia, hyponatremia, and severe DKA. HISTORY OF PRESENT ILLNESS: The patient is a 47-year-old white male with a long history of IDDM, status post a kidney transplant from his sister, a living related donor transplant, back in . The patient has been followed at the [facility] and by Dr. Casey, alternating visits every 6 months. Last records available to me showed a creatinine of 1.7 dating back to 2013. The patient does not remember what his recent creatinine levels are. The patient apparently has a right foot diabetic infection secondary to Charcot foot, possible abscess, possible osteomyelitis. The patient presented to the hospital with severe DKA, hyponatremia, hyperkalemia, severe metabolic acidosis with a BUN of 82 with a creatinine of 5.2. This morning, his BUN is 81 with a creatinine of 3.8. His potassium on admission was 7.4 and potassium today is 4.2. Bicarbonate on admission was less than 5. Bicarbonate today is 18. Sodium was 114 on admission, partly pseudohyponatremia from a glucose level of 960. Sodium today is 135. The patient is being maintained on triple immunosuppressive therapy. According to the patient, he is compliant with medications. The patient states that his last set of labs at the clinic are unknown to him, but he states there was no concern about his kidney function. We are asked to evaluate the patient for his acute renal failure superimposed likely on chronic kidney disease stage III or perhaps higher in the setting of a kidney transplant, living related donor dating back 6 to 7 years. PAST MEDICAL HISTORY: 1. Significant for that of IDDM with progressive chronic kidney disease. The patient was never on dialysis according to the patient. History of a kidney transplant dating back to 2010 from a sister who is a living related donor transplant. Creatinine post transplant back in 2012 to 2013 was 1.6 to 1.7. 2. History of hypertension. 3. History of diabetic retinopathy, diabetic neuropathy, diabetic nephropathy. 4. No history of heart disease but the patient noted to be in atrial fibrillation on admission to the hospital. 5. History of peripheral vascular disease. 6. History of a chronic right foot diabetic infection, abscess and possible osteomyelitis. 7. History of reflux. 5. History of hyperlipidemia. MEDICATIONS: At home, include that of Duricef, prednisone, Prograf, propranolol, Myfortic, MultiVites, Lantus, regular insulin, Plavix, Lipitor, and aspirin. Present medications in hospital include that of hydralazine, aspirin, daptomycin, presently D5 lactated Ringer's, insulin, Lipitor, and meropenem. ALLERGIES: THE PATIENT HAS NO KNOWN ALLERGIES TO MEDICATION. SOCIAL HISTORY: No history of cigarette smoking. No history of alcohol use. FAMILY HISTORY: Unremarkable. REVIEW OF SYSTEMS: GENERAL: The patient states appetite and weight have been stable. ENT: Positive visual problem secondary to diabetic retinopathy, status post laser surgery. PULMONARY: No shortness of breath. No history of COPD, bronchitis, emphysema, or pneumonia. CARDIAC: The patient denies any cardiac history but was noted to be in atrial fibrillation on admission. GASTROINTESTINAL: No nausea, no vomiting, no diarrhea, no constipation, no abdominal pain. GENITOURINARY: History of likely progressive chronic kidney disease. No history of UTIs. ENDOCRINE: History of diabetes with both micro and macrovascular complications. MUSCULOSKELETAL: No complaints. NEUROLOGIC: No past history of CVA, TIA, seizures, or syncope. HEMATOLOGIC-ONCOLOGIC: No history of malignancy. No past history of anemia. PSYCHIATRIC: History is negative. PHYSICAL EXAMINATION: GENERAL: The patient is currently seen in ICU, bed 1. He is lying comfortable supine in bed. IV fluids are infusing. Glucose control has improved. He appears to be alert and fully communicative. VITAL SIGNS: Blood pressure presently is 152/74 with a heart rate of 107, appears to be in a sinus tachycardia. Temperature 98.8. Respiratory rate is 18. HEENT: Positive for diabetic retinopathy and diminished vision. Normocephalic, atraumatic. Pupils appear to be equal and reactive to light and accommodation. Extraocular muscles are intact. Conjunctivae are pink. Sclerae nonicteric. Posterior oropharynx is normal. NECK: Supple. No neck vein distention, no thyromegaly, no lymphadenopathy. CHEST: Clear to auscultation and percussion. No rales, rhonchi, or wheezing. CARDIOVASCULAR: Shows a regular rate and rhythm. No audible murmurs, rubs, or gallops noted. ABDOMEN: Soft. Bowel sounds normal. No tenderness over his left lower quadrant kidney transplant. No rebound, guarding, or masses. BACK: No CVAT. No spinal tenderness. EXTREMITIES: Show no cyanosis or clubbing. He does have black areas over his right plantar surface of his foot. No open wounds visible. Diminished pulses bilaterally. NEUROLOGIC: Shows him to be alert, oriented. No gross focal motor deficits. Diminished lower extremity vibration sense and soft touch sensation. LABORATORY DATA AND IMAGING: Admitting chest x-ray shows no acute pulmonary disease. Admitting EKG showed atrial fibrillation. CBC: White blood cell count on admission 25.2, hemoglobin 11.1, platelet count is 402,000. Chemistries on admission showed a sodium 114, potassium 7.4, CO2 of less than 5. Glucose of 960 with a BUN of 82 and creatinine of 5.2. Today's BUN is 81 with a creatinine of 3.8. CO2 level is improved at 18. Sodium level is up to 135. Hyperkalemia was successfully treated and his potassium today is down to 3.7. Blood gas on admission showed a pH of 6.89, repeat was 7.11. Initial pO2 was 76 with a pCO2 of 23. Urine showed trace protein, positive glucose, positive ketones, otherwise unremarkable. Microbiology: All cultures are pending but initial Gram stain of his right foot drainage showed Gram-positive cocci in pairs. ASSESSMENT: 1. Acute renal failure superimposed on chronic kidney disease, perhaps stage III or IV. We need to find out from the [facility]plant [facility] or from Dr. Casey his baseline creatinine. Last documented creatinine I have goes back to 2013, his creatinine was 1.7. The patient states nobody has been recently alarmed about his renal parameters. So, at all likelihood, he has been stable until this recent episode. The patient has longstanding diabetic nephropathy, progressive chronic kidney disease. He had a preemptive kidney transplant as a living related donor from his sister. The patient is being maintained on triple immunosuppressive therapy. These medications should be continued. I will obtain a renal transplant ultrasound. We will obtain the most recent outpatient labs. I expect his BUN and creatinine to drift down to baseline levels. 2. History of sepsis in the setting of right foot diabetic foot infection, abscess, and possible osteomyelitis. The patient is on multiple antibiotics. He is currently afebrile. White cell count was 25.2 when he came into the hospital. The patient is being evaluated by Infectious Disease. The patient has been working with a local chiropractic neurologist. Await final cultures and adjust the antibiotics and further assessment of peripheral vascular disease and diabetic neuropathy as these are the leading factors for the cause of his infection. 3. Insulin-dependent diabetes mellitus of greater than 30 years' duration. 4. Status post diabetic ketoacidosis. Status post life-threatening metabolic acidosis, hyperkalemia, and hyponatremia. This is this is being corrected and the patient is being followed by the guest services director in the ICU along with an microarray operations vice president. 5. Atrial fibrillation. The patient appears to be in normal sinus rhythm. The patient denies having any history of coronary artery disease. 6. History of peripheral vascular disease with diminished pulses in his lower extremity, likely secondary to longstanding diabetes with macrovascular complications. 7. History of hypertension. The patient has been maintained on propranolol in the outpatient setting. The patient's blood pressure given his situation is currently acceptable. Blood pressure medication may be added. Avoid FRED inhibitors or angiotensin receptor blockers. 8. History of gastroesophageal reflux disease, currently stable. 9. History of hyperlipidemia. The patient was on statin therapy in the outpatient setting and this can be continued. PLAN: 1. Continue to monitor the patient closely in the ICU over the next 24 to 48 hours. 2. Continue endocrine followup. 3. Further evaluation of his right foot infection with imaging studies once the patient stabilizes. 4. Continue empiric antibiotics pending final culture results. 5. Start the patient back on triple immunosuppressive therapy for protection of his kidney transplant. 6. We will try and obtain from Dr. Casey or from the Transplant Center his most recent BUN and creatinine levels. 7. Obtain PTH and vitamin D 25-hydroxy level. 8. In light of his mild hyperphosphatemia, we will start the patient on binder therapy and the patient should be on a renal diet. Greater than 35 minutes spent in the care of this critically ill patient. Gabino Marie MD
[2017-11-25] MEDS: MYCOPHENOLIC ACID PO SCH (20:48)
--- NOTE | 2017-11-25 21:22 | US ---
HISTORY: Leg pain and swelling. Evaluate for DVT PHYSICIAN(S): John Duque MD. TECHNIQUE: Duplex sonography and color-flow Doppler with graded compression were used to evaluate the deep venous systems of both lower extremities. FINDINGS: The visualized deep venous systems of both lower extremities are sonographically normal and compressible. Normal wave forms and augmentation are seen. There is no sonographic evidence for deep venous thrombosis in the visualized segments of both lower extremities. IMPRESSION: No sonographic evidence for deep venous thrombosis in the visualized segments of both lower extremities.
[2017-11-25] MEDS: Insulin Lispro (humaLOG) LOW Coverage SC SCH (22:00)
[2017-11-25] MEDS ORDERED: Insulin Detemir 100 units/ml Vial (Levemir) SC SCH (22:00)
[2017-11-26] MEDS ORDERED: Insulin Lispro 1 UNITS/0.01 ML SC STA (02:15)
[2017-11-26 06:56] LABS: MEAN CELL VOLUME 75.7 fl (80.0-105.0); MEAN CORPUSCULAR HEMOGLOBIN 25.6 pg (25.0-35.0); MEAN CORPUSCULAR HGB CONC 33.8 g/dl (31.0-37.0); MEAN PLATELET VOLUME 9.9 fl (7.0-11.0); RBC 3.91 10^6/uL (3.5-6.1); RED CELL DISTRIBUTION WIDTH 14.7 % (11.5-14.5)
--- NOTE | 2017-11-26 07:41 | PN ---
DATE: 11/25/2017 FOLLOWUP REPORT LOCATION: Room 128, bed 1. SUBJECTIVE: Recovering from his cellulitis and osteomyelitis, right foot and ankle. He had surgery approximately a year ago for ankle fusion, subtalar fusion with plates placed. He had an intramedullary nuha. The cellulitis appears to be improving and he feels less pain. There are no signs of an abscess when the foot was palpated or the ankle, either had no signs of abscess that I could drain. We are going to reach out to the gasoline catalyst operator after his surgery and they could follow him appropriately. Otherwise, he does seem to be responding to the antibiotics. Aurelio Lainez DO
[2017-11-26 07:43] LABS: ALB/GLOB RATIO 0.9 (1.1-1.8); ALBUMIN 2.9 g/dL (3.0-4.8); CALCIUM 8.9 mg/dL (8.4-10.5)
[2017-11-26] MEDS: Insulin Lispro 1 UNITS/0.01 ML SC SCH ×3 (07:51→18:03)
[2017-11-26] MEDS: Insulin Lispro (humaLOG) LOW Coverage SC SCH ×3 (07:52→22:44)
[2017-11-26] MEDS: MYCOPHENOLIC ACID PO SCH ×2 (10:00→22:41)
--- NOTE | 2017-11-26 10:01 | RAD ---
PROCEDURE: Right foot HISTORY: r/o bone infx COMPARISON: TECHNIQUE: Three views FINDINGS: Previous fusion of the ankle with metal plates and screws. There is bony sclerosis. There is an area of lucency on the inferior surface of the anterior calcaneus. This could represent an area of osteomyelitis. There is a needle tip in the plantar aspect of the foot at the level of the 3rd metatarsal neck IMPRESSION: As above
--- NOTE | 2017-11-26 10:02 | RAD ---
PROCEDURE: Right foot three views HISTORY: s/p I D with packing COMPARISON: TECHNIQUE: Three views FINDINGS: Previous fusion of the ankle with metal plates and screws. There is bony sclerosis. There is an area of lucency on the inferior surface of the anterior calcaneus. This could represent an area of osteomyelitis. There is a needle tip in the plantar aspect of the foot at the level of the 3rd metatarsal neck There is a new surgical dressing around the foot. No change in position of needle tip IMPRESSION: As above
[2017-11-26] MEDS: Meropenem 500 MG in Sodium Chloride 0.9% 50 ML IVPB SCH ×2 (10:09→22:42)
[2017-11-26] MEDS: Sodium Chloride 0.9% 1,000 ML IV SCH (10:11)
--- NOTE | 2017-11-26 10:43 | PQF AMI ---
This form is a permanent part of the medical record Dr. Lucio, Patient admitted with multiple issues, diagnosed with sepsis and DKA. He had many lab abnormalities including elevated troponin of 0.48 in setting of elevated BUN/creatinine. Please clarify if SD was ruled out, was there any significance to this lab finding? Clarification of your documentation is requested to better reflect the severity of illness and intensity of treatment of your patient. Indicators present [] Diagnosis of SD without specification of time frame (within 28 days of admission of greater than 28 days prior to admission) [] Diagnosis of subsequent SD (time frame of previous SD within 28 days of admission or greater than 28 days of admission) [] Diagnosis of SD w/o specified site [] EKG positive for changes (i.e.; ST elevation, non-ST elevation, Q-wave changes, etc.) [] Elevated Troponins [] Elevated Cardiac Enzymes [] Cardiac consult documentation of [] Chest pain/ACS/Unstable Angina [] Echo findings of [x] Other: [] No SD Troponin elevated for other non-cardiac reasons Location in the medical record that reflects the above clinical findings:[] Other Treatment Provided:[] PHYSICIAN'S RESPONSE Based on your medical judgment of the clinical indicators outlined above, are you treating this patient for a known or suspected: [ ] NSTEMI [ ] STEMI Site: [ ] [ ] ACS/Unstable Angina [ ] Angina :[ ] [ ] Other, please indicate [ ]___ If Unable to Determine, please check the box, sign and date Present On Admission (POA) Indicator: [ ] Present at the time of admission [ x ] Not present at the time of admission [ ] Clinically Undetermined * If you have any questions please call:[ ] * Thank you, [ ]Raegan Lopez [facility] #[id number] liner worker In responding to this query, please exercise your independent professional judgment. The fact that a question is asked does not imply that any particular answer is desired or expected. Thank you for your clarification on this documentation. MAXWELL
--- NOTE | 2017-11-26 10:48 | CP.CCUPN ---
<Hernán Prasad - Last Filed: 11/26/17 10:58> CCU Subjective - Physician Review Subjective (Free Text): Pt seen and examined bedside. Patient says he is feeling well, no acute issues or complaints. reports to be feeling significantly better. Denies any major complaints. 11/26/17 10:47 CCU Objective - Vital Signs / Intake & Output Vital Signs (Last 4 hours): Vital Signs Pulse BP 11/26/17 10:05 100 H 152/93 H Intake and Output (Last 8hrs): Intake & Output 11/25/17 11/26/17 11/26/17 22:59 06:59 14:59 Intake Total 1300 3280 Output Total 2800 3000 Balance -1500 280 Weight 157 lb 4 oz Intake: IV 1000 1900 Forearm 1000 Left Antecubital 1900 Oral 300 1380 Output: Urine 2800 3000 Condom 3000 Urethral (Guy) 2800 Other: # Bowel Movements 0 - Physical Exam Head: Positive for: Atraumatic, Normocephalic Pupils: Positive for: PERRL Extroacular Muscles: Positive for: EOMI Conjunctiva: Positive for: Normal Ears: Positive for: Normal Mouth: Positive for: Dry Pharnyx: Positive for: Normal. Negative for: ERYTHEMA Nose (External): Positive for: Atraumatic Nose (Internal): Positive for: Normal Inspection Neck: Positive for: Normal Range of Motion. Negative for: Meningeal Signs Respiratory/Chest: Positive for: Clear to Auscultation, Good Air Exchange, Accessory Muscle Use. Negative for: Respiratory Distress Cardiovascular: Positive for: Regular Rate and Rhythm, Normal S1, S2, Tachycardic. Negative for: Murmurs Abdomen: Positive for: Normal Bowel Sounds. Negative for: Tenderness, Distention, Peritoneal Signs, Guarding Back: Positive for: Normal Inspection. Negative for: Midline Tenderness Upper Extremity: Positive for: Normal Inspection, NORMAL PULSES. Negative for: Cyanosis, Edema Lower Extremity: Positive for: Normal Inspection, NORMAL PULSES, Tenderness, Swelling (right foot), Erythema (right lower leg and foot with warmth), Neurovascularly Intact, Other (bandage on right foot ). Negative for: Edema Neurological: Positive for: GCS=15, CN II-XII Intact, Speech Normal, Motor Func Grossly Intact, Normal Sensory Function Skin: Positive for: Warm, Dry, Normal Color. Negative for: Rashes Psychiatric: Positive for: Alert, Oriented x 3, Normal Insight, Normal Concentration - Medications Active Medications: Active Medications Generic Name Dose Route Start Last Admin Trade Name Maciel PRN Reason Stop Dose Admin Aspirin 81 mg 11/25/17 10:00 11/26/17 10:00 Aspirin Chewable PO 81 mg DAILY SITA Administration Atorvastatin Calcium 40 mg 11/25/17 17:00 11/25/17 22:00 Lipitor PO 40 mg DIN SITA Administration Famotidine 40 mg 11/26/17 22:00 Pepcid PO HS SITA Home Med 2 unit 11/25/17 13:58 11/26/17 10:00 Home Med PO 2 unit 0900,2100 [facility] Administration Hydralazine HCl 10 mg 11/25/17 06:00 11/26/17 06:00 Apresoline IVP Not Given Q6 SITA Meropenem 500 mg/ Sodium 50 mls @ 100 mls/hr 11/24/17 22:00 11/26/17 10:09 Chloride IVPB 12/03/17 22:01 100 mls/hr Q12 SITA Administration Protocol Daptomycin 430 mg/ Sodium 100 mls @ 200 mls/hr 11/24/17 16:15 11/24/17 19:07 Chloride IV 12/03/17 16:16 200 mls/hr Q48H SITA Administration Sodium Chloride 1,000 mls @ 75 mls/hr 11/26/17 09:45 11/26/17 10:11 Sodium Chloride 0.9% IV 75 mls/hr .[id number] SITA Administration Insulin Detemir 30 unit 11/25/17 22:00 11/25/17 22:17 Levemir SC 30 unit HS [facility] Administration Insulin Human Lispro 10 units 11/25/17 11:30 11/26/17 07:51 Humalog SC 10 units AC [facility] Administration Insulin Human Regular 0 units 11/26/17 11:30 Humulin R Med SC ACHS [facility] Protocol Metoprolol Tartrate 25 mg 11/26/17 10:00 11/26/17 10:05 Lopressor PO 25 mg BID SITA Administration Prednisone 5 mg 11/25/17 10:00 11/26/17 10:05 Prednisone Tab PO 5 mg DAILY [facility]ITA Administration Tacrolimus 2 mg 11/25/17 18:58 11/25/17 20:48 Prograf Cap PO 2 mg 0900,2100 SITA Administration - Patient Studies Lab Studies: Microbiology Studies 11/24/17 16:20 Gram Stain - Final Foot - Right Wound Culture - Final Staphylococcus Aureus 11/24/17 15:45 MRSA Culture (Admit) - Final Nose MRSA NOT DETECTED 11/24/17 13:20 Urine Culture - Final Urine No Growth (<1,000 CFU/ML) Lab Studies 11/26/17 11/26/17 11/26/17 Range/Units 07:31 06:00 06:00 WBC 14.0 H D (4.5-11.0) 10^3/ul RBC 3.91 (3.5-6.1) 10^6/uL Hgb 10.0 L (14.0-18.0) g/dL Hct 29.6 L (42.0-52.0) % MCV 75.7 L (80.0-105.0) fl MCH 25.6 (25.0-35.0) pg MCHC 33.8 (31.0-37.0) g/dl RDW 14.7 H (11.5-14.5) % Plt Count 359 (120.0-450.0) 10^3/uL MPV 9.9 (7.0-11.0) fl Sodium 134 (132-148) mmol/L Potassium 3.7 (3.6-5.0) mmol/L Chloride 99 (98-107) mmol/L Carbon Dioxide 25 (21-33) mmol/L Anion Gap 15 (10-20) BUN 59 H (7-21) mg/dL Creatinine 2.3 H (0.8-1.5) mg/dl Est GFR ( Amer) 37 Est GFR (Non-Af Amer) 31 POC Glucose (mg/dL) 286 H (65-110) mg/dL Random Glucose 367 H* D (70-110) mg/dL Hemoglobin A1c (4.2-6.5) % Calcium 8.9 (8.4-10.5) mg/dL Phosphorus 4.1 (2.5-4.5) mg/dL Magnesium 2.0 (1.7-2.2) mg/dL Total Bilirubin 0.4 (0.2-1.3) mg/dL AST 30 (17-59) U/L ALT 37 (7-56) U/L Alkaline Phosphatase 188 H (38-126) U/L Total Protein 6.0 (5.8-8.3) g/dL Albumin 2.9 L (3.0-4.8) g/dL Globulin 3.1 gm/dL Albumin/Globulin Ratio 0.9 L (1.1-1.8) Procalcitonin (0.19-0.49) NG/ML Cortisol AM Sample (4.46-22.7) ug/dL 11/26/17 11/25/17 11/25/17 Range/Units 02:05 21:41 16:19 WBC (4.5-11.0) 10^3/ul RBC (3.5-6.1) 10^6/uL Hgb (14.0-18.0) g/dL Hct (42.0-52.0) % MCV (80.0-105.0) fl MCH (25.0-35.0) pg MCHC (31.0-37.0) g/dl RDW (11.5-14.5) % Plt Count (120.0-450.0) 10^3/uL MPV (7.0-11.0) fl Sodium (132-148) mmol/L Potassium (3.6-5.0) mmol/L Chloride (98-107) mmol/L Carbon Dioxide (21-33) mmol/L Anion Gap (10-20) BUN (7-21) mg/dL Creatinine (0.8-1.5) mg/dl Est GFR ( Amer) Est GFR (Non-Af Amer) POC Glucose (mg/dL) 326 H 406 H* 259 H (65-110) mg/dL Random Glucose (70-110) mg/dL Hemoglobin A1c (4.2-6.5) % Calcium (8.4-10.5) mg/dL Phosphorus (2.5-4.5) mg/dL Magnesium (1.7-2.2) mg/dL Total Bilirubin (0.2-1.3) mg/dL AST (17-59) U/L ALT (7-56) U/L Alkaline Phosphatase (38-126) U/L Total Protein (5.8-8.3) g/dL Albumin (3.0-4.8) g/dL Globulin gm/dL Albumin/Globulin Ratio (1.1-1.8) Procalcitonin (0.19-0.49) NG/ML Cortisol AM Sample (4.46-22.7) ug/dL 11/25/17 11/25/17 11/25/17 Range/Units 16:00 10:51 04:05 WBC (4.5-11.0) 10^3/ul RBC (3.5-6.1) 10^6/uL Hgb (14.0-18.0) g/dL Hct (42.0-52.0) % MCV (80.0-105.0) fl MCH (25.0-35.0) pg MCHC (31.0-37.0) g/dl RDW (11.5-14.5) % Plt Count (120.0-450.0) 10^3/uL MPV (7.0-11.0) fl Sodium 134 (132-148) mmol/L Potassium 3.4 L (3.6-5.0) mmol/L Chloride 99 (98-107) mmol/L Carbon Dioxide 22 (21-33) mmol/L Anion Gap 16 (10-20) BUN 68 H (7-21) mg/dL Creatinine 2.8 H (0.8-1.5) mg/dl Est GFR ( Amer) 30 Est GFR (Non-Af Amer) 24 POC Glucose (mg/dL) 224 H (65-110) mg/dL Random Glucose 237 H (70-110) mg/dL Hemoglobin A1c (4.2-6.5) % Calcium 8.9 (8.4-10.5) mg/dL Phosphorus (2.5-4.5) mg/dL Magnesium (1.7-2.2) mg/dL Total Bilirubin (0.2-1.3) mg/dL AST (17-59) U/L ALT (7-56) U/L Alkaline Phosphatase (38-126) U/L Total Protein (5.8-8.3) g/dL Albumin (3.0-4.8) g/dL Globulin gm/dL Albumin/Globulin Ratio (1.1-1.8) Procalcitonin (0.19-0.49) NG/ML Cortisol AM Sample 53.8 H (4.46-22.7) ug/dL 11/24/17 11/24/17 Range/Units 21:50 15:30 WBC (4.5-11.0) 10^3/ul RBC (3.5-6.1) 10^6/uL Hgb (14.0-18.0) g/dL Hct (42.0-52.0) % MCV (80.0-105.0) fl MCH (25.0-35.0) pg MCHC (31.0-37.0) g/dl RDW (11.5-14.5) % Plt Count (120.0-450.0) 10^3/uL MPV (7.0-11.0) fl Sodium (132-148) mmol/L Potassium (3.6-5.0) mmol/L Chloride (98-107) mmol/L Carbon Dioxide (21-33) mmol/L Anion Gap (10-20) BUN (7-21) mg/dL Creatinine (0.8-1.5) mg/dl Est GFR ( Amer) Est GFR (Non-Af Amer) POC Glucose (mg/dL) (65-110) mg/dL Random Glucose (70-110) mg/dL Hemoglobin A1c 10.8 H (4.2-6.5) % Calcium (8.4-10.5) mg/dL Phosphorus (2.5-4.5) mg/dL Magnesium (1.7-2.2) mg/dL Total Bilirubin (0.2-1.3) mg/dL AST (17-59) U/L ALT (7-56) U/L Alkaline Phosphatase (38-126) U/L Total Protein (5.8-8.3) g/dL Albumin (3.0-4.8) g/dL Globulin gm/dL Albumin/Globulin Ratio (1.1-1.8) Procalcitonin 7.95 H (0.19-0.49) NG/ML Cortisol AM Sample (4.46-22.7) ug/dL Laboratory Results - last 24 hr 11/24/17 11/24/17 11/25/17 15:30 21:50 04:05 WBC RBC Hgb Hct MCV MCH MCHC RDW Plt Count MPV Sodium Potassium Chloride Carbon Dioxide Anion Gap BUN Creatinine Est GFR ( Amer) Est GFR (Non-Af Amer) POC Glucose (mg/dL) Random Glucose Hemoglobin A1c 10.8 H Calcium Phosphorus Magnesium Total Bilirubin AST ALT Alkaline Phosphatase Total Protein Albumin Globulin Albumin/Globulin Ratio Procalcitonin 7.95 H Cortisol AM Sample 53.8 H 11/25/17 11/25/17 11/25/17 10:51 16:00 16:19 WBC RBC Hgb Hct MCV MCH MCHC RDW Plt Count MPV Sodium 134 Potassium 3.4 L Chloride 99 Carbon Dioxide 22 Anion Gap 16 BUN 68 H Creatinine 2.8 H Est GFR ( Amer) 30 Est GFR (Non-Af Amer) 24 POC Glucose (mg/dL) 224 H 259 H Random Glucose 237 H Hemoglobin A1c Calcium 8.9 Phosphorus Magnesium Total Bilirubin AST ALT Alkaline Phosphatase Total Protein Albumin Globulin Albumin/Globulin Ratio Procalcitonin Cortisol AM Sample 11/25/17 11/26/17 11/26/17 21:41 02:05 06:00 WBC 14.0 H D RBC 3.91 Hgb 10.0 L Hct 29.6 L MCV 75.7 L MCH 25.6 MCHC 33.8 RDW 14.7 H Plt Count 359 MPV 9.9 Sodium Potassium Chloride Carbon Dioxide Anion Gap BUN Creatinine Est GFR ( Amer) Est GFR (Non-Af Amer) POC Glucose (mg/dL) 406 H* 326 H Random Glucose Hemoglobin A1c Calcium Phosphorus Magnesium Total Bilirubin AST ALT Alkaline Phosphatase Total Protein Albumin Globulin Albumin/Globulin Ratio Procalcitonin Cortisol AM Sample 11/26/17 11/26/17 06:00 07:31 WBC RBC Hgb Hct MCV MCH MCHC RDW Plt Count MPV Sodium 134 Potassium 3.7 Chloride 99 Carbon Dioxide 25 Anion Gap 15 BUN 59 H Creatinine 2.3 H Est GFR ( Amer) 37 Est GFR (Non-Af Amer) 31 POC Glucose (mg/dL) 286 H Random Glucose 367 H* D Hemoglobin A1c Calcium 8.9 Phosphorus 4.1 Magnesium 2.0 Total Bilirubin 0.4 AST 30 ALT 37 Alkaline Phosphatase 188 H Total Protein 6.0 Albumin 2.9 L Globulin 3.1 Albumin/Globulin Ratio 0.9 L Procalcitonin Cortisol AM Sample Fingerstick Blood Sugar Results: 286 Review of Systems - Cardiovascular Cardiovascular: absent: Chest Pain, Dyspnea - Respiratory Respiratory: absent: Cough, Dyspnea - Musculoskeletal Musculoskeletal: Arthralgias - Neurological Neurological: absent: Numbness Critical Care Progress Note - Nutrition Nutrition: Nutrition Category Date Time Status Renal Diet [DIET] Diets 11/25/17 Dinner Ordered Assessment/Plan - Assessment and Plan (Free Text) Plan: 47yo male a/w DKA, Hyperkalemia, acute renal failure, dehydration, severe sepsis. DKA has resolved, renal function improving. Sepsis Acute on CKD Hyperglycemia/DKA-resolved Hyperkalemia, resolved Leukocytosis-improving - currently afebrile, HD stable, comfortable in NAD, AAOx3 - labs with improving renal function Recommend: - supp o2 as needed - continue abx - repeat blood cultures ordered - ID follow up - follow up cultures - IVF hydration - Insulin Sliding scale medium - Cardiology follow up - started on lopressor 25 BID - renal follow up - GI ppx - DVT ppx <Raphael Pena - Last Filed: 11/26/17 12:23> CCU Objective - Vital Signs / Intake & Output Vital Signs (Last 4 hours): Vital Signs Pulse BP 11/26/17 10:05 100 H 152/93 H Intake and Output (Last 8hrs): Intake & Output 11/25/17 11/26/17 11/26/17 22:59 06:59 14:59 Intake Total 1300 3280 Output Total 2800 3000 Balance -1500 280 Weight 157 lb 4 oz Intake: IV 1000 1900 Forearm 1000 Left Antecubital 1900 Oral 300 1380 Output: Urine 2800 3000 Condom 3000 Urethral (Guy) 2800 Other: # Bowel Movements 0 - Medications Active Medications: Active Medications Generic Name Dose Route Start Last Admin Trade Name Cheleq PRN Reason Stop Dose Admin Aspirin 81 mg 11/25/17 10:00 11/26/17 10:00 Aspirin Chewable PO 81 mg DAILY SITA Administration Atorvastatin Calcium 40 mg 11/25/17 17:00 11/25/17 22:00 Lipitor PO 40 mg DIN SITA Administration Famotidine 40 mg 11/26/17 22:00 Pepcid PO HS SITA Gemfibrozil 600 mg 11/26/17 18:00 Lopid PO BID SITA Home Med 2 unit 11/25/17 13:58 11/26/17 10:00 Home Med PO 2 unit 0900,2100 [facility] Administration Hydralazine HCl 10 mg 11/25/17 06:00 11/26/17 06:00 Apresoline IVP Not Given Q6 SITA Meropenem 500 mg/ Sodium 50 mls @ 100 mls/hr 11/24/17 22:00 11/26/17 10:09 Chloride IVPB 12/03/17 22:01 100 mls/hr Q12 SITA Administration Protocol Daptomycin 430 mg/ Sodium 100 mls @ 200 mls/hr 11/24/17 16:15 11/24/17 19:07 Chloride IV 12/03/17 16:16 200 mls/hr Q48H SITA Administration Sodium Chloride 1,000 mls @ 75 mls/hr 11/26/17 09:45 11/26/17 10:11 Sodium Chloride 0.9% IV 75 mls/hr .[id number] SITA Administration Insulin Detemir 30 unit 11/25/17 22:00 11/25/17 22:17 Levemir SC 30 unit HS SITA Administration Insulin Human Lispro 10 units 11/25/17 11:30 11/26/17 07:51 Humalog SC 10 units AC SITA Administration Insulin Human Regular 0 units 11/26/17 11:30 Humulin R Med SC ACHS [facility] Protocol Metoprolol Tartrate 50 mg 11/26/17 18:00 Lopressor PO BID SITA Prednisone 5 mg 11/25/17 10:00 11/26/17 10:05 Prednisone Tab PO 5 mg DAILY SITA Administration Tacrolimus 2 mg 11/25/17 18:58 11/26/17 10:03 Prograf Cap PO 2 mg 0900,2100 SITA Administration - Patient Studies Lab Studies: Microbiology Studies 11/24/17 16:20 Gram Stain - Final Foot - Right Wound Culture - Final Staphylococcus Aureus 11/24/17 15:45 MRSA Culture (Admit) - Final Nose MRSA NOT DETECTED 11/24/17 13:20 Urine Culture - Final Urine No Growth (<1,000 CFU/ML) Lab Studies 11/26/17 11/26/17 11/26/17 Range/Units 07:31 06:00 06:00 WBC 14.0 H D (4.5-11.0) 10^3/ul RBC 3.91 (3.5-6.1) 10^6/uL Hgb 10.0 L (14.0-18.0) g/dL Hct 29.6 L (42.0-52.0) % MCV 75.7 L (80.0-105.0) fl MCH 25.6 (25.0-35.0) pg MCHC 33.8 (31.0-37.0) g/dl RDW 14.7 H (11.5-14.5) % Plt Count 359 (120.0-450.0) 10^3/uL MPV 9.9 (7.0-11.0) fl Sodium 134 (132-148) mmol/L Potassium 3.7 (3.6-5.0) mmol/L Chloride 99 (98-107) mmol/L Carbon Dioxide 25 (21-33) mmol/L Anion Gap 15 (10-20) BUN 59 H (7-21) mg/dL Creatinine 2.3 H (0.8-1.5) mg/dl Est GFR ( Amer) 37 Est GFR (Non-Af Amer) 31 POC Glucose (mg/dL) 286 H (65-110) mg/dL Random Glucose 367 H* D (70-110) mg/dL Hemoglobin A1c (4.2-6.5) % Calcium 8.9 (8.4-10.5) mg/dL Phosphorus 4.1 (2.5-4.5) mg/dL Magnesium 2.0 (1.7-2.2) mg/dL Total Bilirubin 0.4 (0.2-1.3) mg/dL AST 30 (17-59) U/L ALT 37 (7-56) U/L Alkaline Phosphatase 188 H (38-126) U/L Total Protein 6.0 (5.8-8.3) g/dL Albumin 2.9 L (3.0-4.8) g/dL Globulin 3.1 gm/dL Albumin/Globulin Ratio 0.9 L (1.1-1.8) Procalcitonin (0.19-0.49) NG/ML Cortisol AM Sample (4.46-22.7) ug/dL 11/26/17 11/25/17 11/25/17 Range/Units 02:05 21:41 16:19 WBC (4.5-11.0) 10^3/ul RBC (3.5-6.1) 10^6/uL Hgb (14.0-18.0) g/dL Hct (42.0-52.0) % MCV (80.0-105.0) fl MCH (25.0-35.0) pg MCHC (31.0-37.0) g/dl RDW (11.5-14.5) % Plt Count (120.0-450.0) 10^3/uL MPV (7.0-11.0) fl Sodium (132-148) mmol/L Potassium (3.6-5.0) mmol/L Chloride (98-107) mmol/L Carbon Dioxide (21-33) mmol/L Anion Gap (10-20) BUN (7-21) mg/dL Creatinine (0.8-1.5) mg/dl Est GFR ( Amer) Est GFR (Non-Af Amer) POC Glucose (mg/dL) 326 H 406 H* 259 H (65-110) mg/dL Random Glucose (70-110) mg/dL Hemoglobin A1c (4.2-6.5) % Calcium (8.4-10.5) mg/dL Phosphorus (2.5-4.5) mg/dL Magnesium (1.7-2.2) mg/dL Total Bilirubin (0.2-1.3) mg/dL AST (17-59) U/L ALT (7-56) U/L Alkaline Phosphatase (38-126) U/L Total Protein (5.8-8.3) g/dL Albumin (3.0-4.8) g/dL Globulin gm/dL Albumin/Globulin Ratio (1.1-1.8) Procalcitonin (0.19-0.49) NG/ML Cortisol AM Sample (4.46-22.7) ug/dL 11/25/17 11/25/17 11/24/17 Range/Units 16:00 04:05 21:50 WBC (4.5-11.0) 10^3/ul RBC (3.5-6.1) 10^6/uL Hgb (14.0-18.0) g/dL Hct (42.0-52.0) % MCV (80.0-105.0) fl MCH (25.0-35.0) pg MCHC (31.0-37.0) g/dl RDW (11.5-14.5) % Plt Count (120.0-450.0) 10^3/uL MPV (7.0-11.0) fl Sodium 134 (132-148) mmol/L Potassium 3.4 L (3.6-5.0) mmol/L Chloride 99 (98-107) mmol/L Carbon Dioxide 22 (21-33) mmol/L Anion Gap 16 (10-20) BUN 68 H (7-21) mg/dL Creatinine 2.8 H (0.8-1.5) mg/dl Est GFR ( Amer) 30 Est GFR (Non-Af Amer) 24 POC Glucose (mg/dL) (65-110) mg/dL Random Glucose 237 H (70-110) mg/dL Hemoglobin A1c (4.2-6.5) % Calcium 8.9 (8.4-10.5) mg/dL Phosphorus (2.5-4.5) mg/dL Magnesium (1.7-2.2) mg/dL Total Bilirubin (0.2-1.3) mg/dL AST (17-59) U/L ALT (7-56) U/L Alkaline Phosphatase (38-126) U/L Total Protein (5.8-8.3) g/dL Albumin (3.0-4.8) g/dL Globulin gm/dL Albumin/Globulin Ratio (1.1-1.8) Procalcitonin 7.95 H (0.19-0.49) NG/ML Cortisol AM Sample 53.8 H (4.46-22.7) ug/dL 11/24/17 Range/Units 15:30 WBC (4.5-11.0) 10^3/ul RBC (3.5-6.1) 10^6/uL Hgb (14.0-18.0) g/dL Hct (42.0-52.0) % MCV (80.0-105.0) fl MCH (25.0-35.0) pg MCHC (31.0-37.0) g/dl RDW (11.5-14.5) % Plt Count (120.0-450.0) 10^3/uL MPV (7.0-11.0) fl Sodium (132-148) mmol/L Potassium (3.6-5.0) mmol/L Chloride (98-107) mmol/L Carbon Dioxide (21-33) mmol/L Anion Gap (10-20) BUN (7-21) mg/dL Creatinine (0.8-1.5) mg/dl Est GFR ( Amer) Est GFR (Non-Af Amer) POC Glucose (mg/dL) (65-110) mg/dL Random Glucose (70-110) mg/dL Hemoglobin A1c 10.8 H (4.2-6.5) % Calcium (8.4-10.5) mg/dL Phosphorus (2.5-4.5) mg/dL Magnesium (1.7-2.2) mg/dL Total Bilirubin (0.2-1.3) mg/dL AST (17-59) U/L ALT (7-56) U/L Alkaline Phosphatase (38-126) U/L Total Protein (5.8-8.3) g/dL Albumin (3.0-4.8) g/dL Globulin gm/dL Albumin/Globulin Ratio (1.1-1.8) Procalcitonin (0.19-0.49) NG/ML Cortisol AM Sample (4.46-22.7) ug/dL Laboratory Results - last 24 hr 11/24/17 11/24/17 11/25/17 15:30 21:50 04:05 WBC RBC Hgb Hct MCV MCH MCHC RDW Plt Count MPV Sodium Potassium Chloride Carbon Dioxide Anion Gap BUN Creatinine Est GFR ( Amer) Est GFR (Non-Af Amer) POC Glucose (mg/dL) Random Glucose Hemoglobin A1c 10.8 H Calcium Phosphorus Magnesium Total Bilirubin AST ALT Alkaline Phosphatase Total Protein Albumin Globulin Albumin/Globulin Ratio Procalcitonin 7.95 H Cortisol AM Sample 53.8 H 11/25/17 11/25/17 11/25/17 16:00 16:19 21:41 WBC RBC Hgb Hct MCV MCH MCHC RDW Plt Count MPV Sodium 134 Potassium 3.4 L Chloride 99 Carbon Dioxide 22 Anion Gap 16 BUN 68 H Creatinine 2.8 H Est GFR ( Amer) 30 Est GFR (Non-Af Amer) 24 POC Glucose (mg/dL) 259 H 406 H* Random Glucose 237 H Hemoglobin A1c Calcium 8.9 Phosphorus Magnesium Total Bilirubin AST ALT Alkaline Phosphatase Total Protein Albumin Globulin Albumin/Globulin Ratio Procalcitonin Cortisol AM Sample 11/26/17 11/26/17 11/26/17 02:05 06:00 06:00 WBC 14.0 H D RBC 3.91 Hgb 10.0 L Hct 29.6 L MCV 75.7 L MCH 25.6 MCHC 33.8 RDW 14.7 H Plt Count 359 MPV 9.9 Sodium 134 Potassium 3.7 Chloride 99 Carbon Dioxide 25 Anion Gap 15 BUN 59 H Creatinine 2.3 H Est GFR ( Amer) 37 Est GFR (Non-Af Amer) 31 POC Glucose (mg/dL) 326 H Random Glucose 367 H* D Hemoglobin A1c Calcium 8.9 Phosphorus 4.1 Magnesium 2.0 Total Bilirubin 0.4 AST 30 ALT 37 Alkaline Phosphatase 188 H Total Protein 6.0 Albumin 2.9 L Globulin 3.1 Albumin/Globulin Ratio 0.9 L Procalcitonin Cortisol AM Sample 11/26/17 07:31 WBC RBC Hgb Hct MCV MCH MCHC RDW Plt Count MPV Sodium Potassium Chloride Carbon Dioxide Anion Gap BUN Creatinine Est GFR ( Amer) Est GFR (Non-Af Amer) POC Glucose (mg/dL) 286 H Random Glucose Hemoglobin A1c Calcium Phosphorus Magnesium Total Bilirubin AST ALT Alkaline Phosphatase Total Protein Albumin Globulin Albumin/Globulin Ratio Procalcitonin Cortisol AM Sample Critical Care Progress Note - Nutrition Nutrition: Nutrition Category Date Time Status Renal Diet [DIET] Diets 11/25/17 Dinner Ordered Attending/Attestation - Attestation I have personally seen and examined this patient.: Yes I have fully participated in the care of the patient.: Yes I have reviewed all pertinent clinical information: Yes Notes (Text): 11/26/17 12:18 The patient was seen and examined at the bedside. Patient care was discussed with resident and ICU team in MDR rounds. Medical records, lab studies, and imaging were reviewed and management issues were discussed and formulated. Last 24H events reviewed. Agree with above treatment plans as outlined in 's note . CCM f\u 25min
[2017-11-26] MEDS ORDERED: Insulin Reg-MEDIUM-Coverage SC SCH (11:30)
--- NOTE | 2017-11-26 13:23 | CP.PCM.PN ---
Subjective - Date & Time of Evaluation Date of Evaluation: 11/26/17 Time of Evaluation: 09:40 - Subjective Subjective: Less pain on the right foot, no fevers, not in distress. No nausea or diarrhea. Objective - Vital Signs/Intake and Output Vital Signs (last 24 hours): Temp Pulse Resp BP Pulse Ox 98.6 F 100 H 19 152/93 H 100 11/26/17 04:00 11/26/17 10:05 11/26/17 04:00 11/26/17 10:05 11/26/17 04:00 Intake and Output: 11/26/17 11/26/17 06:59 18:59 Intake Total 3280 Output Total 3000 Balance 280 - Medications Medications: Current Medications Aspirin (Aspirin Chewable) 81 mg PO DAILY [facility] Last Admin: 11/26/17 10:00 Dose: 81 mg Atorvastatin Calcium (Lipitor) 40 mg PO DIN [facility] Last Admin: 11/25/17 22:00 Dose: 40 mg Famotidine (Pepcid) 40 mg PO [facility] Gemfibrozil (Lopid) 600 mg PO BID [facility] Home Med (Home Med) 2 unit PO 0900,2100 [facility] Last Admin: 11/26/17 10:00 Dose: 2 unit Hydralazine HCl (Apresoline) 10 mg IVP Q6 [facility] Last Admin: 11/26/17 06:00 Dose: Not Given Meropenem 500 mg/ Sodium (Chloride) 50 mls @ 100 mls/hr IVPB Q12 [facility] PRN Reason: Protocol Stop: 12/03/17 22:01 Last Admin: 11/26/17 10:09 Dose: 100 mls/hr Daptomycin 430 mg/ Sodium (Chloride) 100 mls @ 200 mls/hr IV Q48H [facility] Stop: 12/03/17 16:16 Last Admin: 11/24/17 19:07 Dose: 200 mls/hr Sodium Chloride (Sodium Chloride 0.9%) 1,000 mls @ 75 mls/hr IV .[id number] [facility] Last Admin: 11/26/17 10:11 Dose: 75 mls/hr Insulin Detemir (Levemir) 30 unit SC [facility] Last Admin: 11/25/17 22:17 Dose: 30 unit Insulin Human Lispro (Humalog) 10 units SC AC [facility] Last Admin: 11/26/17 11:50 Dose: 10 units Insulin Human Regular (Humulin R Med) 0 units SC ACHS [facility] PRN Reason: Protocol Last Admin: 11/26/17 11:50 Dose: 1 units Metoprolol Tartrate (Lopressor) 50 mg PO BID [facility] Prednisone (Prednisone Tab) 5 mg PO DAILY [facility] Last Admin: 11/26/17 10:05 Dose: 5 mg Tacrolimus (Prograf Cap) 2 mg PO 0900,2100 [facility] Last Admin: 11/26/17 10:03 Dose: 2 mg - Labs Labs: 11/26/17 06:00 11/26/17 06:00 - Constitutional Appears: Non-toxic, Chronically Ill - Head Exam Head Exam: NORMAL INSPECTION - ENT Exam ENT Exam: Mucous Membranes Moist - Neck Exam Neck Exam: absent: Meningismus - Respiratory Exam Respiratory Exam: Decreased Breath Sounds - Cardiovascular Exam Cardiovascular Exam: +S1, +S2 - GI/Abdominal Exam GI & Abdominal Exam: Soft. absent: Tenderness - Extremities Exam Additional comments: right foot with dressings in place Assessment and Plan - Assessment and Plan (Free Text) Plan: Assessment Severe sepsis due to right foot gangrenous infection with abscess formation and probable osteomyelitis in this patient with intra-medullary nuha and other hardware from previous ankle fracture, S/P debridement and I and D POD #1, with Staph aureus bacteremia and MSSA in the right foot acute NSTEMI chronic renal failure S/P renal transplant DM HTN Charcot foot Plan Continue Daptomycin and Merrem pending sensitivities of the Staph aureus in the blood; will repeat blood cx today and order 2D echo to rule out vegetations - concerned also about ankle hardware infection and patient would need prolonged antibiotic course follow up further plans of Cardiology for the NSTEMI will monitor clinically
--- NOTE | 2017-11-26 14:03 | CP.PCM.PN ---
Subjective - Date & Time of Evaluation Date of Evaluation: 11/26/17 Time of Evaluation: 14:00 - Subjective Subjective: Podiatry Progress Note- Dr. Whyte 47 y/o male seen and examined at bedside this afternoon 1 day s/p emergent I&D of gas gangrene of right foot. Pt is resting at time of visit and in NAD. States he feels overall better today and less weak. Denies any events overnight and says he slept just fine. Denies F/C/N/V/CP/SOB. Denies any pain to the right foot. States his dressing has remained intact Objective - Vital Signs/Intake and Output Vital Signs (last 24 hours): Temp Pulse Resp BP Pulse Ox 98.6 F 100 H 19 152/93 H 100 11/26/17 04:00 11/26/17 10:05 11/26/17 04:00 11/26/17 10:05 11/26/17 04:00 Intake and Output: 11/26/17 11/26/17 06:59 18:59 Intake Total 3280 Output Total 3000 Balance 280 - Medications Medications: Current Medications Aspirin (Aspirin Chewable) 81 mg PO DAILY REPLACED BY [facility] Last Admin: 11/26/17 10:00 Dose: 81 mg Atorvastatin Calcium (Lipitor) 40 mg PO DIN REPLACED BY [facility] Last Admin: 11/25/17 22:00 Dose: 40 mg Famotidine (Pepcid) 40 mg PO HS REPLACED BY [facility] Gemfibrozil (Lopid) 600 mg PO BID REPLACED BY [facility] Home Med (Home Med) 2 unit PO 0900,2100 REPLACED BY [facility] Last Admin: 11/26/17 10:00 Dose: 2 unit Hydralazine HCl (Apresoline) 10 mg IVP Q6 REPLACED BY [facility] Last Admin: 11/26/17 06:00 Dose: Not Given Meropenem 500 mg/ Sodium (Chloride) 50 mls @ 100 mls/hr IVPB Q12 REPLACED BY [facility] PRN Reason: Protocol Stop: 12/03/17 22:01 Last Admin: 11/26/17 10:09 Dose: 100 mls/hr Daptomycin 430 mg/ Sodium (Chloride) 100 mls @ 200 mls/hr IV Q48H REPLACED BY [facility] Stop: 12/03/17 16:16 Last Admin: 11/24/17 19:07 Dose: 200 mls/hr Sodium Chloride (Sodium Chloride 0.9%) 1,000 mls @ 75 mls/hr IV .[id number] REPLACED BY [facility] Last Admin: 11/26/17 10:11 Dose: 75 mls/hr Insulin Detemir (Levemir) 30 unit SC HS REPLACED BY [facility] Last Admin: 11/25/17 22:17 Dose: 30 unit Insulin Human Lispro (Humalog) 10 units SC AC REPLACED BY [facility] Last Admin: 11/26/17 11:50 Dose: 10 units Insulin Human Regular (Humulin R Med) 0 units SC ACHS REPLACED BY [facility] PRN Reason: Protocol Last Admin: 11/26/17 11:50 Dose: 1 units Metoprolol Tartrate (Lopressor) 50 mg PO BID REPLACED BY [facility] Prednisone (Prednisone Tab) 5 mg PO DAILY REPLACED BY [facility] Last Admin: 11/26/17 10:05 Dose: 5 mg Tacrolimus (Prograf Cap) 2 mg PO 0900,2100 REPLACED BY [facility] Last Admin: 11/26/17 10:03 Dose: 2 mg - Labs Labs: 11/26/17 06:00 11/26/17 06:00 - Constitutional Appears: Well, Non-toxic, No Acute Distress - Extremities Exam Additional comments: RLE focused exam: Vasc: DP/PT pulses palpable 1/4. Temperature gradient warm to warm. CFT delayed but present to digits 1-3; absent to digits 4 and 5. Diffuse dorsal and plantar non pitting edema noted. Ischemic changes noted to 4th digit. Pallor noted to 5th digit. Derm: 5cm longitudinal linear incision noted to plantar foot extending from plantar sulcus of 4th digit proximally to distal midfoot. Surrounding tissue appears dusky and necrotic. Mild malodor noted. No fluctuance noted at this time. No active drainage elicited from wound with application of pressure. Additional hematoma vs blister formation noted at plantar medial arch. No fluctuance present. Neuro: Protective sensation grossly diminished Ortho: No tenderness to palpation of right foot surgical site - Neurological Exam Neurological Exam: Alert, Awake, Oriented x3 - Psychiatric Exam Psychiatric exam: Normal Affect, Normal Mood Assessment and Plan - Assessment and Plan (Free Text) Assessment: 47 y/o diabetic male 1 day s/p emergent incision and drainage of gas gangrene, right foot Plan: Pt seen and evaluated at bedside Discussed with attending Dr. Whyte Labs and vitals reviewed - afebrile, WBC 14.0 (down from 21.9 yesterday) Wound flushed with copious amounts of sterile saline Wound packed with 1/2" iodoform packing and dressed with ABD, DSD Post-op x-rays reveal continued presence of foreign body, which appears to have shifted medially s/p surgical I&D Discussed with patient the likelihood that he will need to return to the OR for further procedures, including but not limited to more extensive I&D, amputation of 4th digit and possibly 5th digit, and removal of foreign body Arterial duplex ordered MRI of RLE ordered Podiatry will continue to follow patient while in house
--- NOTE | 2017-11-26 14:15 | PN ---
DATE: SUBJECTIVE: The patient is currently seen lying comfortable in ICU bed 1. The patient will be transferred out of the ICU later today. He has been downgraded. He is status post surgical procedure last night, right foot with debridement of the wound. The patient states that he now has sensation and feeling back in that right foot. With continued IV fluid hydration and treatment of sepsis for his right diabetic foot infection, his BUN and creatinine continued to fall back to baseline levels. MEDICATIONS: Medication list reviewed. The patient is currently on hydralazine, aspirin, daptomycin, CellCept, insulin, Lipitor, Lopressor, meropenem, Prograf, prednisone, Pepcid and normal saline 75 mL an hour. OBJECTIVE: INTAKE/OUTPUT: Intake 4650, output 5800. VITAL SIGNS: Blood pressure 152/93, temperature 98.6, respiratory rate 19 with a pulse of 100. HEENT: Shows him to be normocephalic, atraumatic. Conjunctivae are pale. Sclerae are nonicteric. NECK: Supple. No neck vein distention. CHEST: Clear to auscultation and percussion. No rales, rhonchi or wheezing. CARDIOVASCULAR: Shows a regular rate and rhythm with no audible murmurs, rubs or gallops noted. ABDOMEN: Soft. Bowel sounds normal. No tenderness over his lower quadrant kidney transplant. EXTREMITIES: Show a dressing with minimal drainage, right foot. The dressing was not removed. No visible drains. Diminished lower extremity pulses bilaterally. LABORATORY DATA AND IMAGING: Foot x-ray of the right foot shows previous fusion of the ankle with metal plates and screws. Bony sclerosis. Area of lucency of the inferior surface of the anterior calcaneus. Possible osteomyelitis. Of note, there is a needle tip in the plantar aspect of the foot at the level of the third metatarsal neck. The surgical dressing around the foot. Renal ultrasound of the transplanted kidney shows a normal transplanted kidney in the left lower quadrant. The [place] kidneys is small and echogenic. No hydronephrosis. Labs, CBC, white blood cell count today 14.0, hemoglobin 10.0 with a platelet count of 359,000. Chemistry showed continued improvement in his BUN and creatinine. BUN is down to 59 from a high of 82. Creatinine is down to 2.3 from a high of 5.2. Glucose is 367. Calcium, phosphorus, magnesium level are normal. Liver enzymes are normal. Alkaline phosphatase is mildly elevated at 188. Sodium 134 with a potassium of 3.7. Prograf level is pending. Microbiology: Wound cultures are positive for Staph aureus, sensitive to oxacillin. ASSESSMENT: 1. Acute renal failure superimposed on chronic kidney disease, likely stage 3. As per my discussion with Dr. Casey earlier today, the patient has had a baseline creatinine in the upper 1 range, but has had no recent followup. The patient likely will fall back to his baseline BUN and creatinine with appropriate treatment of his right foot infection, clearing of the sepsis and treatment of his diabetic ketoacidosis and appropriate hydration. 2. History of sepsis in the setting of right foot diabetic foot infection, possible osteomyelitis. He is status post surgical debridement. Of note, there was a needle tip seen in the x-ray. This will need to be evaluated by his operating surgeon. 3. Insulin-dependent diabetic mellitus with diabetic ketoacidosis. This was treated appropriately in the Intensive Care Unit and has resolved. The patient has life-threatening metabolic acidosis, hyperkalemia and hyponatremia. This is all corrected. 4. History of atrial fibrillation. The patient is a normal sinus rhythm. 5. History of peripheral vascular disease with diminished pulses in his lower extremities is likely secondary to diabetes with longstanding micro and macrovascular complications. 6. History of hypertension. The patient's blood pressure in the outpatient setting had been maintained on beta-anaya therapy. He continues on this. Adjustment of blood pressure medication pending blood pressure control. Presently, he is receiving hydralazine on an as-needed basis. The patient should avoid angiotensin-converting enzyme inhibitors and angiotensin receptor blockers. 7. History of gastroesophageal reflux disease, currently stable, on Pepcid therapy. 8. History of hyperlipidemia. The patient may continue statin therapy. PLAN: 1. Discussed with staff in the ICU. The patient had been downgraded and is awaiting transfer to medical floor. 2. I have encouraged the patient that in all likelihood, his BUN and creatinine will continue to improve with adequate hydration, correction of his sepsis from his right foot wound infection/osteomyelitis and appropriate hydration. 3. Continue antibiotics as per Infectious Disease. 4. Avoid all nephrotoxic agents. 5. If necessary, the patient can be started on a calcium channel anaya in addition to his beta anaya therapy for blood pressure control. 6. Await Prograf level and the patient should continue triple immunosuppressive therapy. Gabino Marie MD
--- NOTE | 2017-11-26 18:06 | PN ---
DATE: ENDOCRINOLOGY FOLLOWUP NOTE LOCATION: Room 128 ICU, room 1. SUBJECTIVE: This is a 47-year-old male with recent uncontrolled type 2 insulin-requiring diabetes, presenting here with diabetic ketoacidosis and dehydration and has since then improved clinically and metabolically as noted thereof. His oral intake is quite variable, but is improving as per the nursing staff. His glucose levels today have ranged from 286 to 326 mg/dL. The latest chemistry showed a BUN of 59, sodium 134, potassium 3.7, chloride 99, CO2 of 25, glucose 367, and creatinine 2.3. So, at this time, we will modify once again his basal and bolus insulin regimen and increase the Humalog to 14 units subcu t.i.d. before meals to start today as ordered. We will also increase the basal insulin with Levemir to be given as 40 units subcu at bedtime daily to start tonight. We will modify the coverage scale to obviate hypoglycemia and detailed orders have been given. We will titrate incrementally as indicated to optimize metabolic control. We will obtain serial chemistries and supplement accordingly as needed. We will follow. Gaye Byrnes MD
--- NOTE | 2017-11-26 18:41 | CARD ---
APPROVED REPORT EXAM: Two-dimensional and M-mode echocardiogram with Doppler and color Doppler. INDICATION Infection:Rule out subacute bacterial endocarditis 2D DIMENSIONS Left Atrium (2D)3.7 (1.6-4.0cm)IVSd1.2 (0.7-1.1cm) LVDd4.9 (3.9-5.9cm)PWd1.2 (0.7-1.1cm) LVDs3.1 (2.5-4.0cm)FS (%) 37.3 % LVEF (%)67.0 (>50%) M-Mode DIMENSIONS Aortic Root3.30 (2.2-3.7cm)Aortic Cusp Exc.2.00 (1.5-2.0cm) Aortic Valve AoV Peak Zsthujct247.0cm/Chikis Peak GR.7mmHg Mitral Valve E/A ratio0.0 TDI E/Lateral E'0.0E/Medial E'0.0 Tricuspid Valve TR Peak [id number]/sRAP [id number] Peak Gr.29mmHg [id number] LEFT VENTRICLE The left ventricle is normal size. There is borderline to mild concentric left ventricular hypertrophy. The left ventricular function is normal.EF-65% There is normal LV segmental wall motion. The left ventricular diastolic function is normal. No left ventricle thrombus noted on this study. There is no ventricular septal defect visualized. There is no left ventricular aneurysm. There is no mass noted in the left ventricle. RIGHT VENTRICLE The right ventricle is normal size. There is normal right ventricular wall thickness. The right ventricular systolic function is normal. ATRIA The left atrium size is normal. The right atrium size is normal. The interatrial septum is intact with no evidence for an atrial septal defect. AORTIC VALVE The aortic valve is normal in structure. No aortic regurgitation is present. There is no aortic valvular stenosis. There is no aortic valvular vegetation. MITRAL VALVE The mitral valve is thickened but opens well. Mitral regurgitation is mild. There is no mitral valve stenosis. There is no evidence of mitral valve prolapse. TRICUSPID VALVE The tricuspid valve is normal in structure. There is mild tricuspid regurgitation.RVSP-39 mmof hg. There is no tricuspid valve stenosis. There is no tricuspid valve prolapse or vegetation. PULMONIC VALVE The pulmonary valve is normal in structure. There is trace pulmonic valvular regurgitation. There is no pulmonic valvular stenosis. GREAT VESSELS The aortic root is normal in size. The ascending aorta is normal in size. The pulmonary artery is normal. The IVC is normal in size and collapses >50% with inspiration. PERICARDIAL EFFUSION There is no pleural effusion. There is no pericardial effusion. <Conclusion> Normal chamber Size. EF-65% Mitral regurgitation is mild. There is mild tricuspid regurgitation.RVSP-39 mmof hg. There is trace pulmonic valvular regurgitation. No Vegetation or thrombus noted.
--- NOTE | 2017-11-26 20:09 | US ---
PROCEDURE: Lower extremity CECI exam HISTORY: Peripheral vascular disease. Diabetes. PHYSICIAN(S): John uDque MD. FINDINGS: The resting CECI's are normal: right, 1.12and left, 1.16. The brachial systolic pressures are symmetric. The high thigh pressures and waveforms are relatively normal. The calf PVR waveforms augment normally. No significant gradients are noted across the thighs. The ankle PVR waveforms are normal and symmetric. The left metatarsal waveforms are normal. The right metatarsal waveforms are blunted. IMPRESSION: 1. Relatively normal CECI and PVR examination at rest.
[2017-11-26] MEDS ORDERED: Insulin Detemir 100 units/ml Vial (Levemir) SC SCH (22:00)
[2017-11-27] MEDS: Sodium Chloride 0.9% 1,000 ML IV SCH (00:22)
--- NOTE | 2017-11-27 05:38 | PN ---
DATE: 11/26/2017 REASON FOR CONSULTATION: Cardiac evaluation; arrhythmia, sinus tachycardia (appears to be atrial fibrillation). SUBJECTIVE: Patient denies any chest pain, shortness of breath, or any palpitation. Much awake and alert. OBJECTIVE: GENERAL: Not in apparent distress. VITAL SIGNS: Temperature afebrile, heart rate 100, blood pressure 152/93. HEENT: PERRLA. Extraocular muscles intact. NECK: Supple. No carotid bruits or thyromegaly. CHEST: Clear to auscultation. HEART: S1 and S2 regular. ABDOMEN: Soft. EXTREMITIES: Clubbing and cyanosis negative. LABORATORY DATA: Blood workup as follows: WBC 14, hemoglobin 10, hematocrit 29.6, platelet count 359. Chemistries shows sodium 134, potassium 3.7, chloride 99, carbon dioxide 25, anion gap of 15, BUN 59, and creatinine 2.3. Total protein 6, albumin 2.9, albumin-globulin ratio of 0.9. IMPRESSION: A 47-year-old male with a past medical history of diabetes, right foot cellulitis, acute renal failure, anemia, hypokalemia, history of recent stroke, admitted with diabetic ketoacidosis and atrial fibrillation, converted to normal sinus rhythm; patient has a normal sinus. RECOMMENDATIONS: We will get echo to rule out any significant structural heart disease. No evidence of acute MA. Patient admitting troponin is 0.48, but in the face of creatinine was 5.2. Now, the patient converted to normal sinus. Patient underwent incision and drainage of the right foot. Yesterday, possibly the sepsis throw him into diabetic ketoacidosis and causes AFib as well. History of CVA with some residual left hemiparesis, at the time which the patient recovered completely. History of right foot surgery when some [id number] metallic object fell on his foot. Yesterday, the patient underwent incision and drainage and WBC is coming down. Plan is we will add on the beta-anaya 25 mg b.i.d. and we will get echo to assess LV function. We will follow with you. For the risk of stratification, when the patient is stabilized, we will consider stress test as outpatient, before the patient goes home. We will follow with you. Thank you Dr. Lucio for providing me the opportunity in taking care of patient, Jose Yates. Zuleika Flores MD
[2017-11-27 06:44] LABS: HEMOGLOBIN 9.4 g/dL (14.0-18.0); MEAN CELL VOLUME 77.8 fl (80.0-105.0); MEAN CORPUSCULAR HEMOGLOBIN 25.4 pg (25.0-35.0); MEAN CORPUSCULAR HGB CONC 32.6 g/dl (31.0-37.0); MEAN PLATELET VOLUME 9.7 fl (7.0-11.0); RBC 3.7 10^6/uL (3.5-6.1); RED CELL DISTRIBUTION WIDTH 14.7 % (11.5-14.5); WHITE BLOOD COUNT 9.3 10^3/ul (4.5-11.0)
[2017-11-27 07:37] LABS: ALB/GLOB RATIO 0.9 (1.1-1.8); ALBUMIN 2.6 g/dL (3.0-4.8); CALCIUM 8.6 mg/dL (8.4-10.5)
[2017-11-27] MEDS: Insulin Lispro (humaLOG) LOW Coverage SC SCH ×4 (07:51→21:13)
[2017-11-27] MEDS: Insulin Lispro 1 UNITS/0.01 ML SC SCH ×2 (08:15→12:48)
[2017-11-27] MEDS: MYCOPHENOLIC ACID PO SCH ×2 (09:16→21:09)
--- NOTE | 2017-11-27 11:06 | MRI ---
PROCEDURE: MRI of the right foot without contrast HISTORY: gas gangrene R foot COMPARISON: TECHNIQUE: MRI of the right foot was performed in multiple planes using multiple pulse sequences. The images were degraded by metallic artifact. There is extensive hardware in the foot. FINDINGS: Within the limitations of the study there is no evidence of marrow edema to suggest acute osteomyelitis. There is a mild amount of subcutaneous edema on the plantar aspect of the foot. There is no discrete abscess. IMPRESSION: Images compromised by extensive hardware. No evidence of marrow edema to suggest acute osteomyelitis.
--- NOTE | 2017-11-27 13:17 | CP.PCM.PN ---
Subjective - Date & Time of Evaluation Date of Evaluation: 11/27/17 Time of Evaluation: 12:35 - Subjective Subjective: Podiatry Progress Note- Dr. Whyte 47 y/o male seen and evaluated at bedside today with attending Dr. Whyte regarding right foot gas gangrene, 2 days s/p emergent incision and drainage. Pt says he is feeling well today and feels much less lethargic. States he is not having any F/C/N/V/CP/SOB. He feels that the swelling in the right leg and foot has gone down a lot and the leg feels less heavy. Objective - Vital Signs/Intake and Output Vital Signs (last 24 hours): Temp Pulse Resp BP Pulse Ox 98.6 F 102 H 20 131/85 95 11/26/17 04:00 11/27/17 09:14 11/26/17 21:00 11/27/17 09:14 11/26/17 21:00 - Medications Medications: Current Medications Aspirin (Aspirin Chewable) 81 mg PO DAILY [facility] Last Admin: 11/27/17 09:15 Dose: 81 mg Atorvastatin Calcium (Lipitor) 40 mg PO DIN [facility] Last Admin: 11/26/17 17:57 Dose: 40 mg Famotidine (Pepcid) 40 mg PO HS [facility] Gemfibrozil (Lopid) 600 mg PO BID [facility] Last Admin: 11/27/17 09:14 Dose: 600 mg Home Med (Home Med) 2 unit PO 0900,2100 [facility] Last Admin: 11/27/17 09:16 Dose: 2 unit Hydralazine HCl (Apresoline) 10 mg IVP Q6 [facility] Last Admin: 11/27/17 07:00 Dose: Not Given Sodium Chloride (Sodium Chloride 0.9%) 1,000 mls @ 75 mls/hr IV .[id number] [facility] Last Admin: 11/27/17 00:22 Dose: Not Given Daptomycin 430 mg/ Sodium (Chloride) 100 mls @ 200 mls/hr IV DAILY [facility] PRN Reason: Protocol Stop: 12/02/17 10:01 Last Admin: 11/27/17 11:05 Dose: 200 mls/hr Insulin Detemir (Levemir) 46 unit SC HS [facility] Insulin Human Lispro (Humalog Low) 0 units SC ACHS [facility] PRN Reason: Protocol Last Admin: 11/27/17 11:15 Dose: Not Given Insulin Human Lispro (Humalog) 16 units SC [facility] Metoprolol Tartrate (Lopressor) 50 mg PO BID [facility] Last Admin: 11/27/17 09:14 Dose: 50 mg Prednisone (Prednisone Tab) 5 mg PO DAILY [facility] Last Admin: 11/27/17 09:15 Dose: 5 mg Tacrolimus (Prograf Cap) 2 mg PO 0900,2100 [facility] Last Admin: 11/27/17 09:15 Dose: 2 mg - Labs Labs: 11/27/17 05:25 11/27/17 05:25 - Constitutional Appears: Well, Non-toxic, No Acute Distress - Extremities Exam Additional comments: RLE focused exam: Vasc: DP/PT pulses palpable 1/4. Temperature gradient warm to warm. CFT delayed but present to digits 1-3; absent to digits 4 and 5. Diffuse dorsal and plantar non pitting edema noted. Entirety of 4th digit exhibits dry gangrene. Pallor noted to 5th digit. Derm: 5cm longitudinal linear incision noted to plantar foot extending from plantar sulcus of 4th digit proximally to distal midfoot. Surrounding tissue appears dusky and necrotic. Mild malodor noted. No fluctuance noted at this time. No active drainage elicited from wound with application of pressure. Additional dry hematoma formation noted at plantar medial arch. No fluctuance present. Neuro: Protective sensation grossly diminished Ortho: No tenderness to palpation of right foot surgical site - Neurological Exam Neurological Exam: Alert, Awake, Oriented x3 - Psychiatric Exam Psychiatric exam: Normal Affect, Normal Mood Assessment and Plan - Assessment and Plan (Free Text) Assessment: 47 y/o diabetic male 2 days s/p emergent incision and drainage of gas gangrene, right foot Plan: Pt seen and evaluated at bedside with attending Dr. Whyte Labs and vitals reviewed - afebrile, WBC 9.3, decreasing significantly since surgery (21.9 on DOS) Wound flushed with copious amounts of sterile saline Wound packed with 1/2" iodoform packing and dressed with ABD, DSD Post-op x-rays reveal continued presence of foreign body, which appears to have shifted medially s/p surgical I&D Discussed with patient the likelihood of 4th digit amputation and possible removal of foreign body Arterial duplex shows relatively normal CECI/PVR at rest MRI of RLE reveals no marrow edema, negative for acute OM Podiatry will continue to follow patient while in house
--- NOTE | 2017-11-27 15:48 | OP ---
PROCEDURE DATE: 11/25/2017 SURGEON: Rui Whyte DPM. HAND WRAPPER OPERATOR: Ernestina Armstrong DPM, PGY-1. [employer] PL[employer] SALES CONSULTANT: Jose Angel Can DO. ANESTHESIA: IV sedation plus local. PREOPERATIVE DIAGNOSIS: Right foot gas gangrene. POSTOPERATIVE DIAGNOSIS: Right foot gas gangrene. OPERATION PERFORMED: Right foot incision and drainage of gas gangrene. INDICATIONS: The patient is a 47-year-old male with the above diagnosis. The patient has exhausted all conservative treatment at this time and emergently requires surgical intervention. The patient signed the consent after careful explanation of risks, benefits, complications and alternatives for surgical procedure. No guarantees were given nor implied. N.p.o. status was confirmed prior to taking the patient to the operating room. PREPARATION: The patient was brought into the operating room and placed on the operating room table in supine position. Time-out was performed for identification of the correct patient and procedure. After induction of IV sedation, 6 mL of 1% lidocaine plain was injected in a local V block fashion to the dorsal and plantar midfoot. The right lower extremity was then prepped and draped in normal sterile manner and the procedure began. No tourniquet was used during the procedure. DESCRIPTION OF PROCEDURE: Attention was then directed to the plantar aspect of the right foot, plantar to the fourth metatarsal head with a sanguineous blister was present measuring approximately 6 cm x 3 cm. A sterile #15 blade was utilized to sugar and drain the blister, eliciting thin sanguineous fluid. At this time, a sterile #15 blade and forceps was utilized to make a linear longitudinal incision measuring approximately 4 cm in length down to the level of bone. At this time, it was evident that the deep structures including tenderness and deep fascial structures were dark and necrotic in nature secondary to gas gangrene. A sterile #15 blade and forceps was utilized to excisionally debride all nonviable tissue and additional incision was made approximately 1 cm in length to the dorsal aspect of the fourth metatarsal head in a linear longitudinal direction. The two incisions sites formed a sinus tract connecting and a sterile #15 blade and forceps was utilized to once again debride all necrotic and gangrenous tissue within the sinus tract. The sinus tract and wound were copiously irrigated with bacitracin-infused saline using a pulse lavage. At this time, the sinus tract was packed with 1-inch iodoform packing and dressed with abdominal pad and a dry sterile dressing. POSTOPERATIVE CONDITION: The patient tolerated the anesthesia and procedure well and was escorted to the recovery room with vital signs stable. Vascular studies will be performed to assess the patient's vascular supply to the right lower extremity. The patient will remain in the hospital, and Podiatry and Dr. Whyte will continue to follow closely. Rui Whtye DPM [facility]
--- NOTE | 2017-11-27 15:55 | PN ---
DATE: REASON FOR THE CONSULTATION: Cardiac evaluation of arrhythmia, sinus tachycardia. SUBJECTIVE: The patient denies any chest pain, shortness of breath, any palpitations. OBJECTIVE GENERAL: Not in apparent distress. VITAL SIGNS: Temperature afebrile, heart rate 102, blood pressure 131/85. HEENT: PERRLA, intact. NECK: Supple. No carotid bruit or thyromegaly. CHEST: Clear to auscultation. HEART: S1, S2 regular. ABDOMEN: Soft. EXTREMITIES: Clubbing and cyanosis, negative. LABORATORY DATA: Blood workup as follows: WBC 9.3, hemoglobin 9.2, hematocrit 28.8, platelet count 349,000. Chemistry shows sodium 134, potassium 3.9, chloride 99, carbon dioxide 27, anion gap of 12, BUN 41, creatinine 1.8. IMPRESSION: Acute kidney injury and chronic renal insufficiency admitted with acute renal failure, creatinine 5.2, creatinine clearance 12, now improved to creatinine 1.8, status post diabetic ketoacidosis, paroxysmal atrial fibrillation converted to normal sinus, history of cerebrovascular accident with some residual hemiparesis which completely recovered now, history of right foot injury with some metallic object falling down, sepsis, WBC improving. The patient had echocardiography done yesterday that shows ejection fraction of 55%, mild mitral regurgitation, mild tricuspid regurgitation, RV systolic pressure of 39, trace pulmonary insufficiency, no vegetation or thrombus noted. RECOMMENDATIONS: Increase beta-anaya to 50 b.i.d., continue hydralazine p.r.n., avoid nephrotoxic medication. Discussed with the althea. suggested that stress test as outpatient so althea said they will bring the patient in 3 weeks outpatient for a stress test if scheduled in a month. In the interim, continue current treatment. We will follow with you. Thank you Dr. Lucio for providing me the opportunity in taking care of patient, Jose Foss, because the patient has a long-standing history of diabetes and admitted stress test as outpatient. Zuleika Flores MD
[2017-11-27] MEDS ORDERED: Insulin Lispro 1 UNITS/0.01 ML SC SCH (16:30)
--- NOTE | 2017-11-27 19:40 | PN ---
DATE: ENDOCRINOLOGY FOLLOWUP NOTE LOCATION: ICU 128, room 1. SUBJECTIVE: This is a 47-year-old male with recent uncontrolled type 1 insulin-dependent diabetes, presenting here with diabetic ketoacidosis and dehydration and is now being followed closely for metabolical management. His glycemic levels are fluctuating, but much improved at this time and the latest glucose levels done today shows ranging from 185-253 mg/dL. The latest chemistry showed a BUN of 41, sodium 134, potassium 3.9, chloride 99, CO2 of 27, glucose 278 and creatinine 1.8. So at this time, we will continue the same basal and bolus insulin regimen as ordered to allow for dose equilibration and keep him on the Humalog given at 16 units subcutaneously t.i.d. before meals as ordered. We will increase the Levemir given as basal insulin to 46 units subcutaneously at bedtime daily as given. We will titrate incrementally as indicated to optimize metabolic control. We will follow and advise accordingly. Gaye Byrnes MD
[2017-11-27] MEDS: Insulin Detemir 100 units/ml Vial (Levemir) SC SCH (21:13)
--- NOTE | 2017-11-28 01:07 | PN ---
DATE: SUBJECTIVE: The patient is currently seen comfortable lying in ICU bed 1. He has been downgraded and is awaiting transfer to a [facility] bed. He remains on IV fluid hydration. His creatinine is down to 1.7, which is at its baseline levels. He is receiving antibiotic therapy for Staph aureus, right foot diabetic wound infection, and Staph aureus bacteremia MSSA. Of note, his Prograf levels are within the normal range, but elevated. Perhaps this was not a true trough level. MEDICATIONS: Medication list reviewed. Patient is currently on hydralazine, aspirin, daptomycin, CellCept, insulin, Lipitor, Lopid, Lopressor, Pepcid, prednisone, Prograf, and normal saline which will be discontinued. OBJECTIVE: INTAKE AND OUTPUT: Intake 1520, output 2150. GENERAL: Weight is 155 pounds. VITAL SIGNS: Blood pressure is 120/76, temperature is 98.6, respiratory rate is 9 with a pulse of 85. HEENT: Normocephalic, atraumatic. Conjunctivae are pale. Sclerae nonicteric. NECK: Supple. No neck vein distention. CHEST: Clear to auscultation and percussion. No rales, rhonchi or wheezing. CARDIOVASCULAR: Shows a regular rate and rhythm with MR/TR/PI. No S3. No S4. No rubs or gallops. ABDOMEN: Soft. Bowel sounds are normal. No tenderness over his left lower quadrant kidney transplant. EXTREMITIES: Show a dressing with no drainage, right foot. Diminished lower extremity pulses bilaterally. LABORATORY DATA AND IMAGING: MRI of his lower extremity shows no evidence of osteomyelitis. Arterial Doppler study of his lower extremities showed a normal CECI. LABORATORY DATA: CBC; white blood cell count down to 9.3 from a high of 25.2; hemoglobin is 9.4 lower with hydration; platelet count is 349,000. Chemistries today show normal electrolytes. BUN 41, down from a high of 85. Creatinine 1.8, down from a high of 5.2. His baseline creatinine in the fall of this past year was 1.7. Glucose is 278. Calcium, phosphorus and magnesium are normal. Albumin is 2.6. Microbiology: Wound cultures of the right foot and blood cultures are positive for Staph aureus MSSA. ASSESSMENT: 1. Acute renal failure superimposed on chronic kidney disease stage III. This has resolved with appropriate treatment of his bacteremia Staphylococcus aureus diabetic foot infection and hydration. Patient is status post a living-related donor kidney transplant. His baseline creatinine is in the upper 1 range and he is close to this at this time. Of note, patient's Prograf level is higher than we would like him to be, 5 to 6 years out post transplant; however, I am not certain this was a trough level. 2. History of sepsis with septicemia, right diabetic foot infection, no evidence of osteomyelitis on MRI. He is status post surgical debridement. Patient will complete a course of antibiotic therapy and receive local wound care. 3. History of insulin-dependent diabetes mellitus status post diabetic ketoacidosis. Patient's hyperkalemia, metabolic acidosis, hyponatremia have all corrected. 4. Past history of atrial fibrillation. He is in normal sinus rhythm presently. 5. History of peripheral vascular disease with diminished pulses in his lower extremities. His ankle brachial index and his arterial Doppler study showed no evidence for abnormality. 6. History of hypertension. Blood pressure is controlled on present medical therapy. Present systolic blood pressure in the 120s with diastolics in the 70s. IV hydralazine can be discontinued. Patient had been on no blood pressure medication at home. 7. History of gastroesophageal reflux disease, currently stable, on Pepcid therapy. 8. History of a living-related donor transplant. Patient will continue triple immunosuppressive therapy and at this point in time, I will make no change in his Prograf level despite the higher trough level, because I am not certain this was a complete trough level. 9. History of hyperlipidemia. Patient may continue statin therapy. PLAN: 1. Patient awaiting transfer out of the ICU. He has been downgraded to Med-Surg. 2. Continue triple immunosuppressive therapy. 3. Duration of antibiotics as per Infectious Disease. 4. Continue local wound care. 5. P.r.n. calcium channel anaya if blood pressure elevates. 6. Continue to monitor labs on a regular basis. Gabino Marie MD
[2017-11-28 06:40] LABS: HEMOGLOBIN 9.9 g/dL (14.0-18.0); MEAN CELL VOLUME 78.5 fl (80.0-105.0); MEAN CORPUSCULAR HEMOGLOBIN 25.9 pg (25.0-35.0); MEAN PLATELET VOLUME 9.3 fl (7.0-11.0); RBC 3.82 10^6/uL (3.5-6.1); RED CELL DISTRIBUTION WIDTH 14.8 % (11.5-14.5); WHITE BLOOD COUNT 10.3 10^3/ul (4.5-11.0)
[2017-11-28 06:42] LABS: MYCOPHENOLIC ACID 1.1 mcg/mL (1.0-3.5)
[2017-11-28 06:51] LABS: ALB/GLOB RATIO 0.9 (1.1-1.8); ALBUMIN 2.6 g/dL (3.0-4.8)
[2017-11-28] MEDS: Insulin Lispro (humaLOG) LOW Coverage SC SCH ×4 (07:57→22:03)
[2017-11-28] MEDS: Insulin Lispro 1 UNITS/0.01 ML SC SCH ×3 (08:30→17:30)
[2017-11-28] MEDS: MYCOPHENOLIC ACID PO SCH ×2 (10:00→21:01)
[2017-11-28] MEDS ORDERED: Potassium Chloride 20 mEq ER Tab PO ONE ×2 (10:13→15:00)
--- NOTE | 2017-11-28 13:13 | PN ---
DATE: 11/27/2017 SUBJECTIVE: The patient was seen this Sunday evening in room 366, bed 1. He was resting in bed, comfortable. Sugars continue to run high. He continues on antibiotics for his foot cellulitis. He is vaguely aware of the circumstances surrounding his hospital admission, became so quickly related to the infection in the foot what started as a little pimple and rapidly grew to an aggressive infection in the foot requiring debridement. Physical examination is essentially unremarkable except for the infection on the right foot. He is on insulin with insulin coverage. His biggest concern is the possibility of surgery. He is in close followup with his cutter out as an outpatient basis and would like to discuss with him, but he is not on staff at [facility]. Therefore, we will discuss with Surgery/Podiatry here, regarding surgical intervention now versus as an outpatient in the future with his cutter out as he is requesting. Continue antibiotics, fluids, and insulin coverage, etc. . Mart Lucio MD [facility]
[2017-11-28] MEDS: ceFAZolin 2 GM in Sodium Chloride 0.9% 100 ML IVPB SCH ×2 (14:16→21:47)
--- NOTE | 2017-11-28 14:19 | CP.PCM.PN ---
Subjective - Date & Time of Evaluation Date of Evaluation: 11/28/17 Time of Evaluation: 10:30 - Subjective Subjective: Comfortable, no fevers, not in distress, less pain in the right foot. Objective - Vital Signs/Intake and Output Vital Signs (last 24 hours): Temp Pulse Resp BP Pulse Ox 97.9 F 88 18 152/89 H 96 11/28/17 08:37 11/28/17 10:01 11/28/17 08:37 11/28/17 10:01 11/28/17 08:37 Intake and Output: 11/28/17 11/28/17 06:59 18:59 Intake Total 1137 Output Total 1900 Balance -763 - Medications Medications: Current Medications Aspirin (Aspirin Chewable) 81 mg PO DAILY [facility] Last Admin: 11/28/17 09:59 Dose: 81 mg Atorvastatin Calcium (Lipitor) 40 mg PO DIN [facility] Last Admin: 11/27/17 17:22 Dose: 40 mg Famotidine (Pepcid) 40 mg PO [facility] Last Admin: 11/27/17 21:09 Dose: 40 mg Gemfibrozil (Lopid) 600 mg PO BID [facility] Last Admin: 11/28/17 10:01 Dose: 600 mg Home Med (Home Med) 2 unit PO 0900,2100 [facility] Last Admin: 11/28/17 10:00 Dose: 2 unit Hydralazine HCl (Apresoline) 10 mg IVP Q6 [facility] Last Admin: 11/28/17 00:36 Dose: Not Given Cefazolin Sodium 2 gm/ Sodium (Chloride) 100 mls @ 200 mls/hr IVPB Q8 [facility] PRN Reason: Protocol Insulin Detemir (Levemir) 46 unit SC [facility] Last Admin: 11/27/17 21:13 Dose: 46 unit Insulin Human Lispro (Humalog Low) 0 units SC ACHS [facility] PRN Reason: Protocol Last Admin: 11/28/17 07:57 Dose: Not Given Insulin Human Lispro (Humalog) 14 units SC AC [facility] Last Admin: 11/28/17 08:30 Dose: 14 units Metoprolol Tartrate (Lopressor) 50 mg PO BID [facility] Last Admin: 11/28/17 10:01 Dose: 50 mg Potassium Chloride (K-Dur 20 Meq Er Tab) 40 meq PO ONCE ONE Stop: 03/21/18 15:01 Prednisone (Prednisone Tab) 5 mg PO DAILY [facility] Last Admin: 11/28/17 10:01 Dose: 5 mg Tacrolimus (Prograf Cap) 2 mg PO 0900,2100 [facility] Last Admin: 11/28/17 10:00 Dose: 2 mg - Labs Labs: 11/28/17 06:10 11/28/17 06:10 - Constitutional Appears: Chronically Ill - Head Exam Head Exam: NORMAL INSPECTION - ENT Exam ENT Exam: Mucous Membranes Moist - Neck Exam Neck Exam: absent: Meningismus - Respiratory Exam Respiratory Exam: Decreased Breath Sounds - Cardiovascular Exam Cardiovascular Exam: +S1, +S2 - GI/Abdominal Exam GI & Abdominal Exam: Soft. absent: Tenderness Assessment and Plan - Assessment and Plan (Free Text) Plan: Assessment Severe sepsis due to right foot gangrenous infection with abscess formation and probable osteomyelitis in this patient with intra-medullary nuha and other hardware from previous ankle fracture, S/P debridement and I and D POD #3, with Methicillin-sensitive Staph aureus bacteremia and MSSA and Group B Strep in the right foot acute NSTEMI chronic renal failure S/P renal transplant DM HTN Charcot foot Plan will change antibiotics to Cefazolin; repeat blood cx are negative so far and 2D echo does not show vegetations - concerned also about ankle hardware infection and patient would need prolonged antibiotic course follow up further plans of Cardiology for the NSTEMI will continue to monitor clinically
--- NOTE | 2017-11-28 18:40 | PN ---
DATE: REASON FOR THE CONSULTATION: Cardiac evaluation, arrhythmia, sinus tachycardia. SUBJECTIVE: The patient denies any chest pain, shortness of breath, or any palpitation. OBJECTIVE: GENERAL: Not in any apparent distress. VITAL SIGNS: Temperature afebrile, heart rate 88, blood pressure 152/89. HEENT: PERRLA. Extraocular muscles are intact. NECK: Supple. No carotid bruits or thyromegaly. CHEST: Clear to auscultation. HEART: S1 and S2, regular. ABDOMEN: Soft. EXTREMITIES: Clubbing and cyanosis negative. LABORATORY DATA: Blood workup as follows: WBC 10.3, hemoglobin 9.9, hematocrit 30, platelet count 450. Chemistry shows sodium 138, potassium 3.2, chloride 101, carbon dioxide 30, anion gap of 11. BUN 37, creatinine 1.8. IMPRESSION: Acute kidney injury and chronic renal insufficiency; diabetes, longstanding; improved renal function; sinus tachycardia. No evidence of acute myocardial infarction. Status post diabetic ketoacidosis. Atrial fibrillation converted to normal sinus. History of cerebrovascular accident with residual hemiparesis, completely recovered. The patient had echocardiography done yesterday that showed ejection fraction of 55%, mild mitral regurgitation, mild tricuspid regurgitation, right ventricular systolic pressure of 39, trace pulmonary insufficiency, no vegetation or thrombus noted. RECOMMENDATIONS: Increase beta-anaya to 50 b.i.d. Continue hydralazine and avoid nephrotoxic medication. Discussed with the pamelae who suggested a stress test, so they are going to bring the patient as outpatient in 3 to 4 weeks when the symptom of sepsis is controlled. Because the patient has a long-standing history of diabetes, needs to stress test discussed as above. Supplemental electrolytes. We will supplement potassium. We will follow with you. Thank you, Dr. Lucio for providing me the opportunity in taking care of patient, [place]. Zuleika Flores MD
--- NOTE | 2017-11-28 20:53 | PN ---
DATE: SUBJECTIVE: The patient is currently seen lying comfortable in bed on 3R. He remains on IV antibiotic therapy for his wound cultures, which are positive for MSSA, Staph aureus. He was switched from daptomycin to cefazolin. His creatinine remains stable at 1.8, very close to his baseline range of 1.7. He is status post a living-related donor kidney transplant 5-6 years ago. MEDICATIONS: List reviewed. The patient is on aspirin, cefazolin, CellCept, insulin, Lipitor, Lopid, Lopressor, Pepcid, prednisone, and Prograf. PHYSICAL EXAMINATION: INTAKE AND OUTPUT: Intake is 1137, output is 1900. VITAL SIGNS: Blood pressure 115/74, pulse of 86, temperature 97.9, respiratory rate of 18. HEENT: Normocephalic, atraumatic. Conjunctivae are pale. Sclerae nonicteric. NECK: Supple. No neck vein distention. CHEST: Clear to auscultation and percussion with no rales, rhonchi, or wheezing. CARDIOVASCULAR: Shows a regular rate and rhythm with MR/TR/PI. No S3. No S4. No rub. ABDOMEN: Soft. Bowel sounds normal. No tenderness over his left lower quadrant kidney transplant. EXTREMITIES: Show dressing with no drainage, right foot. Diminished pulses in his lower extremity bilaterally. LABORATORY DATA AND IMAGING: MRI of his lower extremity shows no evidence of osteomyelitis. Arterial Doppler of his lower extremity shows a normal CECI. Echocardiogram shows no evidence for vegetation, ejection fraction of 65% with mild valvular heart disease, MR/TR/PI. CBC: White blood cell count today is 10.3, down from a high of 25.2 on admission. Hemoglobin is stable at 9.9. Platelet count is 460,000. Chemistries today showed a potassium of 3.2, the patient received potassium supplements. He was hyperkalemic on admission. Sodium 138, BUN 37 with a creatinine of 1.8, this is within his baseline range for his kidney transplant. Glucose is 152. Calcium, phosphorus, magnesium levels are all normal. Liver enzymes are normal. Albumin is 2.6. Again, Prograf level was higher than a desirable range, but I do not believe this was a trough level. His mycophenolic acid level was 1.1, in the low range of normal. Microbiology: Wound cultures were positive for Staph aureus, MSSA. Wound cultures were also positive for beta hemolytic strep group B. ASSESSMENT: 1. Acute renal failure superimposed on chronic kidney disease stage III. This was in the setting of diabetic ketoacidosis and a diabetic foot infection with methicillin- sensitive Staphylococcus aureus positive wound culture. The patient is currently at his baseline BUN and creatinine range. He remains on triple immunosuppressive therapy. I did not make any adjustments in his regimen. 2. History of sepsis with septicemia. Blood cultures are positive for Staphylococcus aureus, wound cultures are positive for Staphylococcus aureus and beta hemolytic group B strep. The patient will likely require a prolonged course of antibiotic therapy. His echocardiogram was negative for endocarditis. There were no vegetations seen. 3. History of insulin-dependent diabetes mellitus. Status post diabetic ketoacidosis. The patient was severely hyperkalemic on admission, severely acidotic, and hyponatremic, these have all corrected. 4. Past history of atrial fibrillation. He is presently in normal sinus rhythm. 5. History of peripheral vascular disease. His ankle brachial index from his arterial Doppler study showed no evidence for any significant vascular issues. 6. History of hypertension. Blood pressure is controlled on present medical therapy. The patient will continue beta-anaya therapy. I will discontinue IV hydralazine. 7. History of gastroesophageal reflux disease, stable on Pepcid therapy. 8. History of living-related donor transplant from his sister. The patient will continue present triple immunosuppressive therapy. Again, I will make no changes in medication as I do not believe that the levels that were checked were actually trough levels. 9. History of hyperlipidemia. The patient may continue statin therapy and low cholesterol diet. PLAN: 1. Duration of antibiotics as per Infectious Disease. Perhaps PICC line placement if the patient will require a prolonged course of IV antibiotic therapy. 2. Continue triple immunosuppressive therapy for his kidney transplant with no changes. 3. Continue local wound care. 4. P.r.n. calcium channel anaya therapy if his systolic blood pressures remain above 140 on a regular basis. Last blood pressure today was 115/74. 5. Continue to monitor labs on a regular basis during hospitalization. Gabino Marie MD [facility]
[2017-11-28] MEDS: Insulin Detemir 100 units/ml Vial (Levemir) SC SCH (21:49)
[2017-11-29] MEDS: ceFAZolin 2 GM in Sodium Chloride 0.9% 100 ML IVPB SCH ×3 (05:32→22:08)
[2017-11-29 06:38] LABS: HEMOGLOBIN 9.6 g/dL (14.0-18.0); MEAN CELL VOLUME 79.9 fl (80.0-105.0); MEAN CORPUSCULAR HEMOGLOBIN 25.7 pg (25.0-35.0); MEAN CORPUSCULAR HGB CONC 32.2 g/dl (31.0-37.0); MEAN PLATELET VOLUME 9.2 fl (7.0-11.0); RBC 3.73 10^6/uL (3.5-6.1); RED CELL DISTRIBUTION WIDTH 14.8 % (11.5-14.5); WHITE BLOOD COUNT 10.2 10^3/ul (4.5-11.0)
[2017-11-29 07:22] LABS: ALB/GLOB RATIO 0.9 (1.1-1.8); ALBUMIN 2.6 g/dL (3.0-4.8); CALCIUM 9.1 mg/dL (8.4-10.5)
[2017-11-29] MEDS: Insulin Lispro (humaLOG) LOW Coverage SC SCH ×4 (07:31→22:09)
[2017-11-29] MEDS: Insulin Lispro 1 UNITS/0.01 ML SC SCH ×3 (07:31→16:35)
--- NOTE | 2017-11-29 08:32 | PN ---
DATE: 11/28/2017 LOCATION: Room 366. SUBJECTIVE: This is a 47-year-old male with recent uncontrolled type 1 insulin-dependent diabetes presenting here with diabetic ketoacidosis and dehydration and is now being followed closely for metabolic management. His glycemic levels are fluctuating as noted overnight with glucose levels ranging from 150-253 and 287 and 420 mg/dL. His latest chemistry showed a BUN of 59, sodium 134, potassium 3.7, chloride 99, CO2 of 25, glucose 367 and creatinine 2.3. His bedtime glucose was markedly elevated last night to over 400 as the nursing staff in the ICU withheld the dinner time Humalog as ordered. This is quite unacceptable because we are trying to aim for normal glucose levels and not elevated glucose values as noted. So at this time, we will continue the modified basal and bolus insulin regimen and change the Humalog to 14 units subcu t.i.d. before meals as ordered. We will continue the Levemir given as basal insulin at 46 units subcu at bedtime daily as given. We will continue the low-dose correction scale using Humalog insulin as ordered. We will titrate incrementally as indicated to optimize metabolic control. We will follow and advise accordingly. Gaye Byrnes MD
[2017-11-29] MEDS: MYCOPHENOLIC ACID PO SCH ×2 (09:19→20:59)
--- NOTE | 2017-11-29 14:02 | CP.PCM.PN ---
Subjective - Date & Time of Evaluation Date of Evaluation: 11/29/17 Time of Evaluation: 13:59 - Subjective Subjective: Podiatry Progress Note- Dr. Whyte 47 y/o male seen and evaluated at bedside today with attending Dr. Whyte regarding right foot gas gangrene, 4 days s/p emergent incision and drainage. Pt says he feels perfectly fine today. States he is not having any F/C/N/V/CP/ SOB. He denies any pain in the right leg or foot. Dressing remains intact to R foot. Objective - Vital Signs/Intake and Output Vital Signs (last 24 hours): Temp Pulse Resp BP Pulse Ox 98.6 F 80 19 141/92 H 94 L 11/29/17 10:04 11/29/17 10:04 11/29/17 10:04 11/29/17 10:04 11/29/17 10:04 Intake and Output: 11/29/17 11/29/17 06:59 18:59 Intake Total 840 Output Total 1200 Balance -360 - Medications Medications: Current Medications Aspirin (Aspirin Chewable) 81 mg PO DAILY [facility] Last Admin: 11/29/17 09:21 Dose: 81 mg Atorvastatin Calcium (Lipitor) 40 mg PO DIN [facility] Last Admin: 11/28/17 17:31 Dose: 40 mg Famotidine (Pepcid) 40 mg PO HS [facility] Last Admin: 11/28/17 21:02 Dose: 40 mg Gemfibrozil (Lopid) 600 mg PO BID [facility] Last Admin: 11/29/17 09:21 Dose: 600 mg Home Med (Home Med) 2 unit PO 0900,2100 [facility] Last Admin: 11/29/17 09:19 Dose: 2 unit Cefazolin Sodium 2 gm/ Sodium (Chloride) 100 mls @ 200 mls/hr IVPB Q8 [facility] PRN Reason: Protocol Last Admin: 11/29/17 05:32 Dose: 200 mls/hr Insulin Detemir (Levemir) 34 unit SC HS [facility] Insulin Human Lispro (Humalog Low) 0 units SC ACHS [facility] PRN Reason: Protocol Last Admin: 11/29/17 11:36 Dose: Not Given Insulin Human Lispro (Humalog) 8 units SC AC [facility] Metoprolol Tartrate (Lopressor) 50 mg PO BID [facility] Last Admin: 11/29/17 09:20 Dose: 50 mg Prednisone (Prednisone Tab) 5 mg PO DAILY [facility] Last Admin: 11/29/17 09:25 Dose: 5 mg Tacrolimus (Prograf Cap) 2 mg PO 0900,2100 [facility] Last Admin: 11/29/17 09:25 Dose: 2 mg - Labs Labs: 11/29/17 05:45 11/29/17 05:45 - Constitutional Appears: Well, Non-toxic, No Acute Distress - Extremities Exam Additional comments: RLE focused exam: Vasc: DP/PT pulses palpable 09/13. Temperature gradient warm to warm. CFT delayed but present to digits 1-3; absent to digits 4 and 5. Diffuse dorsal and plantar non pitting edema noted. Entirety of 4th digit exhibits dry gangrene. Pallor noted to 5th digit. Plantar midfoot incision site and plantar medial arch also exhibit necrotic dry gangrenous skin changes. Derm: 5cm longitudinal linear incision noted to plantar foot extending from plantar sulcus of 4th digit proximally to distal midfoot. Surrounding tissue appears necrotic. Mild malodor noted. No fluctuance noted at this time. No active drainage elicited from wound with application of pressure. Necrotic skin changes also noted to plantar medial arch. No fluctuance present. Neuro: Protective sensation grossly diminished Ortho: No tenderness to palpation of right foot surgical site - Neurological Exam Neurological Exam: Alert, Awake, Oriented x3 - Psychiatric Exam Psychiatric exam: Normal Affect, Normal Mood Assessment and Plan - Assessment and Plan (Free Text) Assessment: 47 y/o diabetic male 4 days s/p emergent incision and drainage of gas gangrene, right foot Plan: Pt seen and evaluated at bedside with attending Dr. Whyte Labs and vitals reviewed - afebrile, WBC 10.2, VSS Wound flushed with copious amounts of sterile saline Wound packed with 1" iodoform packing and dressed with ABD, DSD Post-op x-rays reveal continued presence of foreign body, which appears to have shifted medially s/p surgical I&D Discussed with patient the likelihood of 4th digit amputation and possible removal of foreign body, possible need for proximal amputation due to necrotic changes at plantar foot Arterial duplex shows relatively normal CECI/PVR at rest MRI of RLE reveals no marrow edema, negative for acute OM Podiatry will continue to follow patient while in house
--- NOTE | 2017-11-29 14:43 | PN ---
DATE: SUBJECTIVE: The patient is currently seen lying comfortable in bed on 3R. He remains on IV antibiotic therapy for his diabetic foot infection. Cultures were positive for MSSA and beta hemolytic strep group B in the wound culture and blood cultures were positive for Staph aureus, MSSA. The patient is being evaluated by Podiatry. There is some talk about him requiring a need for further surgery as there appears to be ischemic areas in or around the diabetic foot infection. MEDICATIONS: Medication list reviewed. The patient is currently on aspirin, cefazolin, CellCept, insulin, Lipitor, Lopid, Lopressor, Pepcid, prednisone and Prograf. OBJECTIVE: INTAKE AND OUTPUT: Intake 840, output 1200. VITAL SIGNS: Blood pressure 141/92, temperature 98.6, respiratory rate 19 with a pulse of 80. HEENT: Exam shows him to be normocephalic, atraumatic. Conjunctivae are pale. Sclerae are nonicteric. NECK: Supple. No neck vein distention. CHEST: Clear to auscultation and percussion. No rales, rhonchi or wheezing. CARDIOVASCULAR: Shows a regular rate and rhythm with MR/TR/PI. No S3. No S4. No rub. ABDOMEN: Soft. Bowel sounds normal. No tenderness over his left lower quadrant kidney transplant. No rebound or guarding. EXTREMITIES: Show a dressing with no drainage, right foot. The dressing was not removed by me and the wound was not examined by me. The patient has diminished pulses in his lower extremity. LABORATORY DATA AND IMAGING: MRI of his lower extremities showed no evidence of osteomyelitis. Arterial Doppler of his lower extremity showed a relatively normal CECI. Echocardiogram showed no evidence of vegetation, ejection fraction was 65% with mild valvular heart disease, MR/TR/PI. CBC, white blood cell count 10.2, hemoglobin 9.6 with a platelet count of 530,000. Chemistry showed normal electrolytes. BUN 31 with a creatinine of 1.9. Glucose was 67 this morning. Calcium, phosphorus, magnesium level are all normal. Albumin level was 2.6. Microbiology as noted above. Wound cultures are positive for beta hemolytic strep group B and Staph aureus, MSSA. Blood cultures were positive for Staph aureus, MSSA. ASSESSMENT: 1. Acute renal failure superimposed on chronic kidney disease stage III. This is in the setting of diabetic ketoacidosis and diabetic foot infection. The patient is positive for MSSA bacteremia and wound cultures along with group B, beta hemolytic strep. The patient will likely need a prolonged course of antibiotic therapy. It is safe for patient to remain on triple immunosuppressive therapy. I made no changes in his regimen. 2. History of insulin-dependent diabetes mellitus, status post diabetic ketoacidosis. The patient was severely hyperkalemic on admission, severely acidotic and hyponatremic. 3. History of paroxysmal atrial fibrillation, presently he is in sinus rhythm. 4. History of peripheral vascular disease, his ankle brachial index from his Doppler study showed no evidence of any significant vascular issues. 5. History of hypertension. Blood pressure controlled on present medical therapy. IV hydralazine was discontinued. The patient may continue beta-anaya therapy and if necessary a calcium channel anaya therapy may be added. I would avoid angiotensin-converting enzyme inhibitors, angiotensin receptor blockers in light of his renal insufficiency. 6. History of gastroesophageal reflux disease, stable on Pepcid therapy. 7. 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 He remains on triple immunosuppressive therapy. I made no changes in his regimen even though his Prograf trough level was high as this was likely not a true trough level. 8. History of hyperlipidemia. The patient may continue statin therapy and a low-fat, low-cholesterol diet. 9. Diabetic foot infection with possible ischemia in and around the diabetic foot ulcer. The patient did have a minor debridement procedure during the early part of the hospitalization. As per his discussions with podiatry, he might need further surgery. The patient is reluctant to have a transmetatarsal amputation. PLAN: 1. Duration of antibiotics as per Infectious Disease. 2. Continue triple immunosuppressive therapy for his kidney transplant. Baseline creatinine in the outpatient setting is in the 1.8 range. He is currently 1.9. 3. Continue local wound care for his right diabetic foot infection. 4. Continue to monitor labs on a regular basis. 5. The patient to decide with his Inspector And Sorter any further need for surgery. 6. The patient is stable from a renal standpoint. Gabino Marie MD
--- NOTE | 2017-11-29 15:09 | CP.PCM.PN ---
Subjective - Date & Time of Evaluation Date of Evaluation: 11/29/17 Time of Evaluation: 11:00 - Subjective Subjective: Foot is feeling better, no fevers, not in distress. No nausea or diarrhea. Objective - Vital Signs/Intake and Output Vital Signs (last 24 hours): Temp Pulse Resp BP Pulse Ox 98.6 F 80 19 141/92 H 94 L 11/29/17 10:04 11/29/17 10:04 11/29/17 10:04 11/29/17 10:04 11/29/17 10:04 Intake and Output: 11/29/17 11/29/17 06:59 18:59 Intake Total 840 Output Total 1200 Balance -360 - Medications Medications: Current Medications Aspirin (Aspirin Chewable) 81 mg PO DAILY [facility] Last Admin: 11/29/17 09:21 Dose: 81 mg Atorvastatin Calcium (Lipitor) 40 mg PO DIN [facility] Last Admin: 11/28/17 17:31 Dose: 40 mg Famotidine (Pepcid) [address] [facility] Last Admin: 11/28/17 21:02 Dose: 40 mg Gemfibrozil (Lopid) 600 mg PO BID [facility] Last Admin: 11/29/17 09:21 Dose: 600 mg Home Med (Home Med) 2 unit PO 0900,2100 [facility] Last Admin: 11/29/17 09:19 Dose: 2 unit Cefazolin Sodium 2 gm/ Sodium (Chloride) 100 mls @ 200 mls/hr IVPB Q8 [facility] PRN Reason: Protocol Last Admin: 11/29/17 05:32 Dose: 200 mls/hr Insulin Detemir (Levemir) [address] [facility] Last Admin: 11/28/17 21:49 Dose: 46 unit Insulin Human Lispro (Humalog Low) [address] [facility] PRN Reason: Protocol Last Admin: 11/29/17 07:31 Dose: Not Given Insulin Human Lispro (Humalog) 14 units SC AC [facility] Last Admin: 11/29/17 07:31 Dose: Not Given Metoprolol Tartrate (Lopressor) 50 mg PO BID [facility] Last Admin: 11/29/17 09:20 Dose: 50 mg Prednisone (Prednisone Tab) 5 mg PO DAILY [facility] Last Admin: 11/29/17 09:25 Dose: 5 mg Tacrolimus (Prograf Cap) 2 mg PO 0900,2100 [facility] Last Admin: 11/29/17 09:25 Dose: 2 mg - Labs Labs: 11/29/17 05:45 11/29/17 05:45 - Constitutional Appears: Non-toxic, Chronically Ill - Head Exam Head Exam: NORMAL INSPECTION - ENT Exam ENT Exam: Mucous Membranes Moist - Neck Exam Neck Exam: absent: Meningismus - Respiratory Exam Respiratory Exam: Decreased Breath Sounds - Cardiovascular Exam Cardiovascular Exam: +S1, +S2 - GI/Abdominal Exam GI & Abdominal Exam: Soft. absent: Tenderness - Extremities Exam Additional comments: right foot with dressings in place Assessment and Plan - Assessment and Plan (Free Text) Plan: Assessment Severe sepsis due to right foot gangrenous infection with abscess formation and probable osteomyelitis in this patient with intra-medullary nuha and other hardware from previous ankle fracture, S/P debridement and I and D POD #4, with Methicillin-sensitive Staph aureus bacteremia and MSSA and Group B Strep in the right foot acute NSTEMI chronic renal failure S/P renal transplant DM HTN Charcot foot Plan continue Cefazolin; repeat blood cx are negative so far and 2D echo does not show vegetations - concerned also about ankle hardware infection and patient would need prolonged antibiotic course (4-6 weeks of antibiotics) follow up further plans of Cardiology for the NSTEMI will continue to monitor clinically
--- NOTE | 2017-11-29 19:18 | PN ---
DATE: ENDOCRINOLOGY FOLLOWUP NOTE LOCATION: In room 366. SUBJECTIVE: This is a 47-year-old male with recent uncontrolled type 2 insulin-requiring diabetes, presenting here with diabetic ketoacidosis and dehydration with recent onset of rapid atrial fibrillation and is being followed closely now for metabolic and cardiac management as noted thereof. His oral intake remains quite variable as per the nursing staff, as noted. His latest chemistry shows a BUN of 31, sodium 141, potassium 3.7, chloride 103, CO2 of 29, glucose 67, and creatinine 1.9. His glucose levels, this morning, were actually quite low at the level of 45 mg/dL and a repeat level of 113 at noontime today as noted. So, at this time, we will modify once again his basal and bolus insulin regimen to adjust the variability of his oral intake as noted. We will lower the Humalog to 8 units subcu t.i.d. before meals to start at lunchtime today as ordered. We will also lower the Levemir to 34 units subcu at bedtime daily to start tonight. We will titrate incrementally as indicated to optimize metabolic control. We will obtain serial chemistries and supplement accordingly needed. We will follow this. Gaye Byrnes MD
[2017-11-29] MEDS: Insulin Detemir 100 units/ml Vial (Levemir) SC SCH (22:10)
--- NOTE | 2017-11-29 23:18 | PN ---
DATE: 11/25/2017 SUBJECTIVE: The patient is a 47-year-old male with a history of chronic renal disease, status post kidney transplant. He also has a history of insulin-dependent diabetes mellitus, who was admitted to the intensive care unit yesterday, diabetic ketoacidosis, new onset atrial fibrillation, gas gangrene, cellulitis of the left foot. He is receiving meropenem and daptomycin as per ID consultation. He was seen by Podiatry for I and D of the wound. The wound grew Staph aureus and blood cultures were also positive for Gram-positive cocci in clusters. OBJECTIVE: GENERAL: When seen, the patient is somewhat lethargic; however, he is awake, alert and oriented. HEART: Sounds are regular but tachycardiac. LUNGS: His respirations are easy. Lungs are clear anteriorly. ABDOMEN: Soft and nontender. EXTREMITIES: Dressing is intact on the left foot. LABORATORY STUDY: Shows the white blood cell count to be 21.5, which is down from 25.2 yesterday; hemoglobin and hematocrit are 10.2 and 28.9. His serum chemistries are markedly improved. His sodium is 135, potassium 3.4, blood urea nitrogen is 77, creatinine is down to 3.3, glucose is 271. ASSESSMENT AND PLAN: Patient remains afebrile. We are continuing with the current regimen and continuing to follow the patient daily. Aurelio Lucio MD
--- NOTE | 2017-11-29 23:43 | PN ---
DATE: 11/28/2017 SUBJECTIVE: The patient is a 47-year-old male, who has history of renal failure. He is status post renal transplant. He also has a history of insulin-dependent diabetes mellitus. He was being treated as an outpatient for cellulitis of the left lower extremity; however, the condition worsened and four days ago, he was admitted to the intensive care unit in diabetic ketoacidosis, new onset atrial fibrillation and severe cellulitis with gas gangrene of the left foot. He underwent I&D of the foot. Initial x-ray suggested osteomyelitis of the calcaneus. He had been treated with antibiotics, meropenem and daptomycin. He is being followed by . When seen today, he is markedly improved. His fevers are good. Family is at bedside. His physical exam is unchanged. LABORATORY DATA: His white blood cell count is down to 10.3. Hemoglobin and hematocrit are 9.9 and 30.0. BUN and creatinine are normalizing nicely, just about at his baseline. BUN of 37 and creatinine of 1.8. PHYSICAL EXAMINATION VITAL SIGNS: His blood pressure is 152/89, heart rate is 88, he is afebrile. PLAN: We are continuing with the current regimen for now. There is a foreign body noted on x-ray of the foot suggesting a needle tip in the area of the third metatarsal, this will be followed up by the bacteriology technician. He is also being followed by Dr. Flores, the ground transportation operator for the new onset AFib; however, he is now in regular sinus rhythm. We will continue to follow the patient closely as he is clinically improving. Aurelio Lucio MD
--- NOTE | 2017-11-30 01:15 | PN ---
DATE: 11/26/2017 The patient is a 47-year-old male with a history of insulin-dependant diabetes mellitus and renal failure status post renal transplant, who was admitted to the Intensive Care Unit 2 days ago in diabetic ketoacidosis, severe cellulitis with gas gangrene of the left foot. He underwent debridement of the wound. Wound cultures grew Staph aureus, blood cultures grew Gram-positive cocci in clusters. An x-ray of the foot showed positive osteomyelitis of the anterior calcaneus. There was also noted a needle tip in the area of the third metatarsal. When seen this morning, he is awake, alert and oriented. He voices no complaints. His spirits are good. He seems to be clinically improved. Laboratory studies showed a white blood cell count to be down to 14.0, hemoglobin and hematocrit are 10.0 and 29.6. Sodium is 134, potassium is 3.7, blood urea nitrogen is 59, creatinine is 2.3. His blood pressure is 152/93 and his heart rate is 100. We are continuing current regimen and we will continue to follow the patient closely. Aurelio Lucio MD [facility]
--- NOTE | 2017-11-30 03:18 | PN ---
DATE: 11/29/2017 SUBJECTIVE: Patient seen this evening in room 366, bed 1, with his brother and business planning analyst friend at the bedside. PHYSICAL EXAMINATION GENERAL: He is awake, alert, clear. Though it is a busy day for him he is in touch with his personal dry roller and making arrangements for continuing antibiotics and surgical followup in the future with Dr. Sheets. Patient is doing well continues on IV antibiotics. He insists only Dr. Sheets will operate on his foot,with ankle filled with hardware. HEAD AND NECK: Unremarkable. LUNGS: Have good aeration in the right and left. EXTREMITIES: Show no edema. Right foot is bandaged. PLAN: Tomorrow I will look at the foot in the morning, undo the dressing and then check with Infectious Disease. The decision is to be made whether the patient to be converted to oral antibiotics or continue with IV antibiotics an additional a day or 2. Will be discharged on Sunday or Sunday, to follow up with Dr. Sheets on Sunday for possible readmission to a facility where Dr. Sheets has privileges for surgery involving fourth toe and some of the eschar at the bottom of the foot. Mart Lucio MD [facility]
[2017-11-30 03:31] VITALS: RESP 20
[2017-11-30] MEDS: ceFAZolin 2 GM in Sodium Chloride 0.9% 100 ML IVPB SCH ×3 (05:55→21:07)
--- NOTE | 2017-11-30 06:59 | HP ---
ADMITTING HISTORY AND PHYSICAL I would like the admitting history and physical to be read as follows, if you would be so kind. HISTORY OF PRESENT ILLNESS: The patient is a 47-year-old male with a history of insulin-dependent diabetes mellitus, status post renal transplant who was seen in the office approximately 1 week ago with a possible cellulitis of the left lower extremity. He is status post fracture of the ankle with hardware still in the ankle. The patient was started on oral antibiotics. However, his situation continued the evening before presentation to the emergency room, he became very drowsy, incoherent, began vomiting. He, therefore, was brought to the emergency room and was found to be in diabetic ketoacidosis. He also had a new onset atrial fibrillation and severe sepsis. PAST MEDICAL HISTORY: Positive for insulin-dependent diabetes mellitus, renal disease, status post kidney transplant as mentioned above, hypertension, Charcot foot, gastroesophageal reflux disease. SOCIAL HISTORY: He never smoked. He is a nonalcoholic drinker. ALLERGIES: HE HAS NO KNOWN MEDICAL ALLERGIES. MEDICATIONS: At the time of admission, was taking Myfortic 3 tablets twice a day, mycophenolic acid 720 mg twice a day, prednisone 5 mg daily, tacrolimus 2 mg twice a day, multivitamins, Lantus 20 units subcutaneously twice a day, NovoLog FlexPen 10 units three times a day, Lipitor 20 mg daily, aspirin 81 mg daily, Plavix 75 mg daily and propranolol 10 mg at bedtime. REVIEW OF SYSTEMS: As mentioned above. PHYSICAL EXAMINATION: GENERAL: The patient is lethargic. He is, however, awake, alert and oriented. VITAL SIGNS: His blood pressure is 95/49, heart rate is 110 and his temperature is 92.8 degrees Fahrenheit. NECK: Supple with no lymphadenopathy. No goiter. LUNGS: Clear to auscultation and percussion. HEART: Irregularly irregular. ABDOMEN: Soft, nontender. EXTREMITIES: There are ulcerations of the plantar surface of the left foot that seems to be gas gangrene, cellulitis is running up to the pretibial area. LABORATORY DATA: Laboratory studies show the white blood cell count to be 252,000, hemoglobin is 11.1, hematocrit is 36.5, platelets are 402. Sodium is 114, potassium is 7.4, blood urea nitrogen is 82, creatinine is 5.2 and glucose is 960. ASSESSMENT AND PLAN: The patient is evaluated by the mandrel cleaner and admitted to the Intensive Care Unit with a diagnosis of diabetic ketoacidosis. He also has a troponin of 0.48 and a BNP of 10,900. The patient is admitted to the Intensive Care Unit, he is started on IV fluids, antibiotics and will be followed closely and reevaluated in the morning. Aurelio Lucio MD
[2017-11-30 07:16] LABS: HEMOGLOBIN 10.5 g/dL (14.0-18.0); MEAN CELL VOLUME 79.8 fl (80.0-105.0); MEAN CORPUSCULAR HEMOGLOBIN 25.5 pg (25.0-35.0); MEAN PLATELET VOLUME 9.1 fl (7.0-11.0); RBC 4.11 10^6/uL (3.5-6.1); RED CELL DISTRIBUTION WIDTH 14.8 % (11.5-14.5); WHITE BLOOD COUNT 9.1 10^3/ul (4.5-11.0)
[2017-11-30 07:50] LABS: ALB/GLOB RATIO 0.9 (1.1-1.8); CALCIUM 9.5 mg/dL (8.4-10.5)
[2017-11-30] MEDS: Insulin Lispro (humaLOG) LOW Coverage SC SCH ×4 (08:08→21:20)
[2017-11-30] MEDS: Insulin Lispro 1 UNITS/0.01 ML SC SCH ×3 (08:08→17:32)
--- NOTE | 2017-11-30 08:35 | PN ---
DATE: 11/29/2017 REASON FOR CONSULTATION AND FOLLOWUP: Cardiac evaluation, arrhythmia, sinus tachycardia, atrial fibrillation. SUBJECTIVE: The patient denies any chest pain, shortness of breath, or any palpitation. OBJECTIVE: GENERAL: Not in any apparent distress. VITAL SIGNS: As follows: Temperature afebrile, heart rate 80, blood pressure 140/92. HEENT: PERRLA. Extraocular muscles intact. NECK: Supple. No carotid bruit or thyromegaly. CHEST: Clear to auscultation. HEART: S1 and S2, regular. ABDOMEN: Soft. EXTREMITIES: Clubbing and cyanosis negative. LABORATORY DATA: Blood workup as follows: WBC 10.8, hemoglobin 9.7, hematocrit 29.3, and platelet count . Chemistry shows sodium 141, potassium 3.7, chloride 103, carbon dioxide 29, anion gap of 11, BUN 31, creatinine 1.9. IMPRESSION: Diabetes, chronic renal insufficiency, protein-calorie malnutrition, protein-losing enteropathy, [id number] present on admission, anemia, paroxysmal atrial fibrillation, status post diabetic ketoacidosis, atrial fibrillation converted to normal sinus, acute kidney injury, chronic renal insufficiency; diabetes, hypertension, hyperlipidemia, longstanding diabetes. The patient's echocardiography done yesterday showed ejection fraction of 55%, mild mitral regurgitation, mild tricuspid regurgitation, right ventricular systolic pressure of 39, trace pulmonary insufficiency, no vegetation or thrombus noted. RECOMMENDATION: 50 mg. The patient is stable. Continue hydralazine and avoid nephrotoxic medication. Discussed with the fiancee and the patient again today that the patient did a stress test as outpatient in 3-4 weeks when the patient is stabilized as outpatient. Thank you, Dr. Lucio, for providing us the opportunity in taking care of the patient, Jose Yates. Poorly controlled diabetes, needs aggressive treatment for diabetes, with the patient came as a DKA. Supplement electrolytes. Continue beta-anaya. We will follow with you. As mentioned, the patient risk stratification in 3-4 weeks as outpatient. Zuleika Flores MD cc: Mart Lucio M.D. [facility] # [phone]
[2017-11-30] MEDS: MYCOPHENOLIC ACID PO SCH ×2 (09:02→21:06)
--- NOTE | 2017-11-30 10:34 | CP.PCM.PN ---
Subjective - Date & Time of Evaluation Date of Evaluation: 11/30/17 Time of Evaluation: 10:34 - Subjective Subjective: Podiatry Progress Note- Dr. Whyte 47 y/o male seen and evaluated at bedside today with primary care Dr. Lucio at bedside regarding right foot gas gangrene, 5 days s/p emergent incision and drainage. Pt says he feels generally well and has been ambulating with crutches with physical therapy. States he has not been putting weight down on the surgical site. States he is not having any F/C/N/V/CP/SOB. He denies any pain in the right leg or foot. Dressing remains intact to R foot. Objective - Vital Signs/Intake and Output Vital Signs (last 24 hours): Temp Pulse Resp BP Pulse Ox 98.6 F 79 20 120/69 98 11/30/17 06:00 11/30/17 06:00 11/30/17 06:00 11/30/17 06:00 11/30/17 06:00 Intake and Output: 11/30/17 11/30/17 06:59 18:59 Intake Total 400 Output Total 1450 Balance -1050 - Medications Medications: Current Medications Aspirin (Aspirin Chewable) 81 mg PO DAILY [facility] Last Admin: 11/30/17 09:03 Dose: 81 mg Atorvastatin Calcium (Lipitor) 40 mg PO DIN [facility] Last Admin: 11/29/17 17:02 Dose: 40 mg Famotidine (Pepcid) 40 mg PO HS [facility] Last Admin: 11/29/17 21:00 Dose: 40 mg Gemfibrozil (Lopid) 600 mg PO BID [facility] Last Admin: 11/30/17 09:03 Dose: 600 mg Home Med (Home Med) 2 unit PO 0900,2100 [facility] Last Admin: 11/30/17 09:02 Dose: 2 unit Cefazolin Sodium 2 gm/ Sodium (Chloride) 100 mls @ 200 mls/hr IVPB Q8 [facility] PRN Reason: Protocol Last Admin: 11/30/17 05:55 Dose: 200 mls/hr Insulin Detemir (Levemir) 34 unit SC HS [facility] Last Admin: 11/29/17 22:10 Dose: 34 unit Insulin Human Lispro (Humalog Low) 0 units SC ACHS [facility] PRN Reason: Protocol Last Admin: 03/23/18 08:08 Dose: Not Given Insulin Human Lispro (Humalog) 8 units SC AC [facility] Last Admin: 11/30/17 08:08 Dose: Not Given Metoprolol Tartrate (Lopressor) 50 mg PO BID [facility] Last Admin: 11/30/17 09:03 Dose: 50 mg Prednisone (Prednisone Tab) 5 mg PO DAILY [facility] Last Admin: 11/30/17 09:03 Dose: 5 mg Tacrolimus (Prograf Cap) 2 mg PO 0900,2100 [facility] Last Admin: 11/30/17 09:03 Dose: 2 mg - Labs Labs: 11/30/17 06:30 11/30/17 06:30 - Constitutional Appears: Well, Non-toxic, No Acute Distress - Extremities Exam Additional comments: RLE focused exam: Vasc: DP/PT pulses palpable 1/4. Temperature gradient warm to warm. CFT delayed but present to digits 1-3, 5; absent to digits 4. Diffuse dorsal and plantar non pitting edema noted. Entirety of 4th digit exhibits dry gangrene. Pallor noted to 5th digit. Plantar midfoot incision site and plantar medial arch also exhibit necrotic dry gangrenous skin changes. Derm: 5cm longitudinal linear incision noted to plantar foot extending from plantar sulcus of 4th digit proximally to distal midfoot. Surrounding tissue appears necrotic. Mild malodor noted. No fluctuance noted at this time. No active drainage elicited from wound with application of pressure. Necrotic skin changes also noted to plantar medial arch. No fluctuance present. Neuro: Protective sensation grossly diminished Ortho: No tenderness to palpation of right foot surgical site - Neurological Exam Neurological Exam: Alert, Awake, Oriented x3 - Psychiatric Exam Psychiatric exam: Normal Affect, Normal Mood Assessment and Plan - Assessment and Plan (Free Text) Assessment: 47 y/o diabetic male 5 days s/p emergent incision and drainage of gas gangrene, right foot Plan: Pt seen and evaluated at bedside Discussed plan with attending Dr. Whyte Labs and vitals reviewed - afebrile, WBC 9.1, VSS Wound flushed with copious amounts of sterile saline Wound packed with 1" iodoform packing and dressed with ABD, DSD Post-op x-rays reveal continued presence of foreign body, which appears to have shifted medially s/p surgical I&D Discussed with patient the likelihood of 4th digit amputation possible further surgical intervention Pt requests that Dr. Sheets be the only one to perform any surgical intervention on his foot Per Dr. Whyte, it is ok for patient to be discharged from podiatry standpoint with urgent recommendation to go to [facility] for continued podiatric management and surgical intervention with Dr. Sheets Arterial duplex shows relatively normal CECI/PVR at rest MRI of RLE reveals no marrow edema, negative for acute OM Podiatry will continue to follow patient while in house
--- NOTE | 2017-11-30 11:42 | PN ---
DATE: 11/30/2017 LOCATION: The patient in room 366, bed 1. REASON FOR CONSULTATION: Follow up atrial fibrillation. SUBJECTIVE: The patient is lying flat in bed without chest pain, shortness of breath, palpitation. PHYSICAL EXAMINATION: VITAL SIGNS: Blood pressure 120/69, respirations 20, pulse 79, temperature 98.6. HEENT: Head is normocephalic. Eyes: Pupils normal. Conjunctivae slightly pale. NECK: JVP low. Carotids equal. THORAX: AP diameter normal. LUNGS: Clear. CARDIOVASCULAR: S1 and S2. ABDOMEN: Soft. No tenderness. No organomegaly. Bowel sounds normal. EXTREMITIES: No clubbing. No cyanosis. LABORATORY DATA: WBC 9.1, hemoglobin 10.5, hematocrit 37.8, platelets 615. Sodium 141, potassium 4.5, BUN 27, creatinine 1.9, random sugar 72. Calcium, phosphorus, magnesium normal. AST 67, ALT 28. Total protein 6.4, albumin 3.0. DIAGNOSES: Diabetic ketoacidosis; acute on chronic renal insufficiency; protein-calorie malnutrition; atrial fibrillation, currently sinus rhythm; anemia; hypertension; hyperlipidemia. Echocardiogram was done on 11/28/2017 showed normal ejection fraction 55%, mild mitral regurgitation, mild tricuspid regurgitation, right ventricular systolic pressure 39 mmHg, trace pulmonic regurgitation. PLAN: The patient is getting Ancef 2 g IV every 8 hours, aspirin 81 mg daily, insulin has ordered, Lipitor 40 daily, Lopid 600 b.i.d., metoprolol 50 b.i.d., prednisone 5 mg daily, tacrolimus 2 g p.o. b.i.d. The patient's stress test should be done in 3-4 weeks as outpatient when the patient's condition is more stabilized. We will continue present therapy and we will continue to follow with you. Zuleika Gallegos MD
--- NOTE | 2017-11-30 14:01 | CP.PCM.PN ---
Subjective - Date & Time of Evaluation Date of Evaluation: 11/30/17 Time of Evaluation: 13:56 - Subjective Subjective: renal follow up note coverage for Dr Marie no events overnight vitals reviewed s1s2 present no resp distress abd soft skin normal psy normal no jvd ao times 3 A&P: JAGRUTI/CKD stage 3/renal transplant/htn/DKA cr stable monitor I&Os continue current IS regimen lytes ok bp controlled dm per primary team Objective - Vital Signs/Intake and Output Vital Signs (last 24 hours): Temp Pulse Resp BP Pulse Ox 98.6 F 75 20 120/69 98 11/30/17 06:00 11/30/17 10:00 11/30/17 06:00 11/30/17 06:00 11/30/17 06:00 Intake and Output: 11/30/17 11/30/17 06:59 18:59 Intake Total 400 Output Total 1450 Balance -1050 - Medications Medications: Current Medications Aspirin (Aspirin Chewable) 81 mg PO DAILY [facility] Last Admin: 11/30/17 09:03 Dose: 81 mg Atorvastatin Calcium (Lipitor) 40 mg PO DIN [facility] Last Admin: 11/29/17 17:02 Dose: 40 mg Famotidine (Pepcid) 40 mg PO HS [facility] Last Admin: 11/29/17 21:00 Dose: 40 mg Gemfibrozil (Lopid) 600 mg PO BID [facility] Last Admin: 11/30/17 09:03 Dose: 600 mg Home Med (Home Med) 2 unit PO 0900,2100 [facility] Last Admin: 11/30/17 09:02 Dose: 2 unit Cefazolin Sodium 2 gm/ Sodium (Chloride) 100 mls @ 200 mls/hr IVPB Q8 [facility] PRN Reason: Protocol Last Admin: 11/30/17 05:55 Dose: 200 mls/hr Insulin Detemir (Levemir) 34 unit SC HS [facility] Last Admin: 11/29/17 22:10 Dose: 34 unit Insulin Human Lispro (Humalog Low) 0 units SC ACHS [facility] PRN Reason: Protocol Last Admin: 11/30/17 11:37 Dose: Not Given Insulin Human Lispro (Humalog) 8 units SC AC [facility] Last Admin: 11/30/17 11:47 Dose: 8 units Metoprolol Tartrate (Lopressor) 50 mg PO BID [facility] Last Admin: 11/30/17 09:03 Dose: 50 mg Prednisone (Prednisone Tab) 5 mg PO DAILY [facility] Last Admin: 11/30/17 09:03 Dose: 5 mg Tacrolimus (Prograf Cap) 2 mg PO 00,2099 [facility] Last Admin: 11/30/17 09:03 Dose: 2 mg - Labs Labs: 11/30/17 06:30 11/30/17 06:30
--- NOTE | 2017-11-30 14:47 | CP.PCM.PN ---
Subjective - Date & Time of Evaluation Date of Evaluation: 11/30/17 Time of Evaluation: 11:05 - Subjective Subjective: Comfortable, no fevers, improved pain in the right foot, no nausea, no diarrhea. Objective - Vital Signs/Intake and Output Vital Signs (last 24 hours): Temp Pulse Resp BP Pulse Ox 98.6 F 75 20 120/69 98 11/30/17 06:00 11/30/17 10:00 11/30/17 06:00 11/30/17 06:00 11/30/17 06:00 Intake and Output: 11/30/17 11/30/17 06:59 18:59 Intake Total 400 Output Total 1450 Balance -1050 - Medications Medications: Current Medications Aspirin (Aspirin Chewable) 81 mg PO DAILY [facility] Last Admin: 11/30/17 09:03 Dose: 81 mg Atorvastatin Calcium (Lipitor) 40 mg PO DIN [facility] Last Admin: 11/29/17 17:02 Dose: 40 mg Famotidine (Pepcid) 40 mg PO [facility] Last Admin: 11/29/17 21:00 Dose: 40 mg Gemfibrozil (Lopid) 600 mg PO BID [facility] Last Admin: 11/30/17 09:03 Dose: 600 mg Home Med (Home Med) 2 unit PO 0900,2100 [facility] Last Admin: 11/30/17 09:02 Dose: 2 unit Cefazolin Sodium 2 gm/ Sodium (Chloride) 100 mls @ 200 mls/hr IVPB Q8 [facility] PRN Reason: Protocol Last Admin: 11/30/17 13:59 Dose: 200 mls/hr Insulin Detemir (Levemir) 34 unit SC [facility] Last Admin: 11/29/17 22:10 Dose: 34 unit Insulin Human Lispro (Humalog Low) 0 units SC [facility] PRN Reason: Protocol Last Admin: 11/30/17 11:37 Dose: Not Given Insulin Human Lispro (Humalog) 8 units SC AC [facility] Last Admin: 11/30/17 11:47 Dose: 8 units Metoprolol Tartrate (Lopressor) 50 mg PO BID [facility] Last Admin: 11/30/17 09:03 Dose: 50 mg Prednisone (Prednisone Tab) 5 mg PO DAILY [facility] Last Admin: 11/30/17 09:03 Dose: 5 mg Tacrolimus (Prograf Cap) 2 mg PO 0900,2100 [facility] Last Admin: 11/30/17 09:03 Dose: 2 mg - Labs Labs: 11/30/17 06:30 11/30/17 06:30 - Constitutional Appears: Non-toxic - Head Exam Head Exam: NORMAL INSPECTION - ENT Exam ENT Exam: Mucous Membranes Moist - Neck Exam Neck Exam: absent: Meningismus - Respiratory Exam Respiratory Exam: Decreased Breath Sounds - Cardiovascular Exam Cardiovascular Exam: +S1, +S2 - GI/Abdominal Exam GI & Abdominal Exam: Soft. absent: Tenderness - Extremities Exam Additional comments: right foot with dressings in place Assessment and Plan - Assessment and Plan (Free Text) Plan: Assessment Severe sepsis due to right foot gangrenous infection with abscess formation and probable osteomyelitis in this patient with intra-medullary nuha and other hardware from previous ankle fracture, S/P debridement and I and D POD #5, with Methicillin-sensitive Staph aureus bacteremia and MSSA and Group B Strep in the right foot acute NSTEMI chronic renal failure S/P renal transplant DM HTN Charcot foot Plan continue Cefazolin; repeat blood cx are negative so far and 2D echo does not show vegetations - concerned also about ankle hardware infection and patient would need prolonged antibiotic course (4-6 weeks of antibiotics) patient may need amputation of the right foot area but would want to see his own Podiatist in [place] - follow up plan with Dr. Lucio will continue to monitor clinically
[2017-11-30 18:42] VITALS: O2SAT 100
--- NOTE | 2017-11-30 19:03 | PN ---
DATE: ENDOCRINOLOGY FOLLOWUP NOTE LOCATION: In the room 366. SUBJECTIVE: This is a 47-year-old male with recent uncontrolled type 1 insulin-dependent diabetes, presenting here with diabetic ketoacidosis and dehydration and is now improving clinically and metabolically as noted thereof. His glycemic levels are fluctuating because of the variability of his oral intake and today's glucose values have ranged from 72 to 238 and 259 mg/dL. His latest chemistry shows a BUN of 27, sodium 141, potassium 4.5, chloride 101, CO2 of 34, glucose 102, and creatinine 1.9. So, at this time, we will modify once again his basal and bolus insulin regimen and lower the Levemir to 30 units subcu at bedtime daily as ordered. We will also lower the Humalog to 8 units subcu t.i.d. before meals as given. We will titrate incrementally as indicated to optimize metabolic control. We will obtain serial chemistries and supplement accordingly as needed. We will follow this. Gaye Byrnes MD
[2017-11-30] MEDS: Insulin Detemir 100 units/ml Vial (Levemir) SC SCH (21:22)
--- NOTE | 2017-12-01 00:17 | PN ---
DATE: 11/30/2017 SUBJECTIVE: Patient was seen this Sunday morning and again Sunday afternoon. In the morning, the wound was undressed and examined along with pulmonary function technologist. The right fourth toe is black and shriveled, necrotic. There is an area of superficial eschar over the ball of the great toe on the plantar aspect and surgical incision with packing between the third and fourth toe extending approximately 3 inches. I also reviewed the x-rays with the radiologist and the amount of hardware in that right ankle is quite significant. Later in the afternoon, I spoke with the patient at great length regarding his wishes. He would like that any surgery could be done by his longstanding, well-known pulmonary function technologist, Dr. Sheets at [facility]. I discussed this with Dr. Shabazz, the infectious disease doctor, as we will need to come off with an [id number] solution to this situation. PHYSICAL EXAMINATION: Remainder of physical exam is unremarkable. LABORATORY DATA: Patient's white count is normal. He is afebrile. PLAN: Case was discussed with the medical case manager at great length who is enquiring about PICC line and half-way antibiotics and surgery here at [facility] and what is best for the patient and his personal preference, we have come up with a plan: Patient will continue on IV antibiotics for now, receive a dose of IV Rocephin tomorrow, get prescription for oral Augmentin to last him through Sunday, and he will be admitted to [facility] under Dr. Sheets's care on Sunday with probable surgery to follow. This way, we can discharge him safely tomorrow, his antibiotic coverage would be adequate, and he will have his preference of surgeons and facilities. photo of foot x-ray and needle like FB given/ texted to patient to give to Dr. Sheets. Mart Lucio MD [facility]
[2017-12-01] MEDS: ceFAZolin 2 GM in Sodium Chloride 0.9% 100 ML IVPB SCH (05:14)
[2017-12-01 07:01] LABS: CALCIUM 9.2 mg/dL (8.4-10.5)
[2017-12-01 07:02] LABS: BASO # 0.02 K/mm3 (0.0-2.0); BASO % 0.2 % (0.0-3.0); EOS # 0.2 (0.0-0.7); EOS % 1.9 % (1.5-5.0); GRAN # 6.21 (1.4-6.5); HEMOGLOBIN 10.1 g/dL (14.0-18.0); LYMPH # 2.6 (1.2-3.4); LYMPH % 25.9 % (22.0-35.0); MEAN CELL VOLUME 80.6 fl (80.0-105.0); MEAN CORPUSCULAR HEMOGLOBIN 25.8 pg (25.0-35.0); MEAN PLATELET VOLUME 9.2 fl (7.0-11.0); RBC 3.92 10^6/uL (3.5-6.1); RED CELL DISTRIBUTION WIDTH 15.1 % (11.5-14.5)
[2017-12-01] MEDS: Insulin Lispro 1 UNITS/0.01 ML SC SCH ×2 (08:19→11:43)
[2017-12-01] MEDS: Insulin Lispro (humaLOG) LOW Coverage SC SCH ×2 (08:20→11:44)
[2017-12-01 08:34] VITALS: BP 119/73; PULSE 77; TEMP 98.2
[2017-12-01] MEDS: MYCOPHENOLIC ACID PO SCH (10:07)
--- NOTE | 2017-12-01 10:44 | CP.PCM.PN ---
Subjective - Date & Time of Evaluation Date of Evaluation: 12/01/17 Time of Evaluation: 10:40 - Subjective Subjective: Podiatry Progress Note- Dr. Whyte 47 y/o male seen and evaluated at bedside today with primary care Dr. Lucio at bedside regarding right foot gas gangrene, 6 days s/p emergent incision and drainage. Patient is AAOx3 and is in NAD. Denies of any acute overnight events. Reports that he maybe going home today but is sure to follow up with Dr. Sheets in his office on Sunday. Reports that he has already made an appointment with him. Reports that he knows to follow up at [place] after that visit. States he is not having any F/C/N/V/CP/SOB. He denies any pain in the right leg or foot. Dressing remains intact to R foot. Objective - Vital Signs/Intake and Output Vital Signs (last 24 hours): Temp Pulse Resp BP Pulse Ox 98.2 F 77 20 119/73 100 12/01/17 08:33 12/01/17 10:09 12/01/17 08:33 12/01/17 10:09 12/01/17 08:33 Intake and Output: 12/01/17 12/01/17 06:59 18:59 Intake Total 920 0 Output Total 1100 Balance 920 -1100 - Medications Medications: Current Medications Aspirin (Aspirin Chewable) 81 mg PO DAILY [facility] Last Admin: 12/01/17 10:08 Dose: 81 mg Atorvastatin Calcium (Lipitor) 40 mg PO DIN [facility] Last Admin: 11/30/17 17:32 Dose: 40 mg Famotidine (Pepcid) 40 mg PO HS [facility] Last Admin: 11/30/17 21:06 Dose: 40 mg Gemfibrozil (Lopid) 600 mg PO BID [facility] Last Admin: 12/01/17 10:08 Dose: 600 mg Home Med (Home Med) 2 unit PO 0900,2100 [facility] Last Admin: 12/01/17 10:07 Dose: 2 unit Cefazolin Sodium 2 gm/ Sodium (Chloride) 100 mls @ 200 mls/hr IVPB Q8 [facility] PRN Reason: Protocol Last Admin: 12/01/17 05:14 Dose: 200 mls/hr Insulin Detemir (Levemir) 34 unit SC [facility] Last Admin: 11/30/17 21:22 Dose: 34 unit Insulin Human Lispro (Humalog Low) 0 units SC ACHS [facility] PRN Reason: Protocol Last Admin: 12/01/17 08:20 Dose: Not Given Insulin Human Lispro (Humalog) 8 units SC AC [facility] Last Admin: 12/01/17 08:19 Dose: Not Given Metoprolol Tartrate (Lopressor) 50 mg PO BID [facility] Last Admin: 12/01/17 10:09 Dose: 50 mg Prednisone (Prednisone Tab) 5 mg PO DAILY [facility] Last Admin: 12/01/17 10:10 Dose: 5 mg Tacrolimus (Prograf Cap) 2 mg PO 0900,2100 [facility] Last Admin: 12/01/17 10:10 Dose: 2 mg - Labs Labs: 12/01/17 06:00 12/01/17 06:00 - Constitutional Appears: Well, Non-toxic, No Acute Distress - Extremities Exam Additional comments: RLE focused exam: Vasc: DP/PT pulses palpable 1/4. Temperature gradient warm to warm. CFT delayed but present to digits 1-3, 5; absent to digits 4. Diffuse dorsal and plantar non pitting edema noted. Entirety of 4th digit exhibits dry gangrene. Pallor noted to 5th digit. Plantar midfoot incision site and plantar medial arch also exhibit necrotic dry gangrenous skin changes. Derm: 5cm longitudinal linear incision noted to plantar foot extending from plantar sulcus of 4th digit proximally to distal midfoot. Surrounding tissue appears necrotic. Mild malodor noted. No fluctuance noted at this time. No active drainage elicited from wound with application of pressure. Necrotic skin changes also noted to plantar medial arch. No fluctuance present. Neuro: Protective sensation grossly diminished Ortho: No tenderness to palpation of right foot surgical site - Neurological Exam Neurological Exam: Alert, Awake, Oriented x3 - Psychiatric Exam Psychiatric exam: Normal Affect, Normal Mood Assessment and Plan - Assessment and Plan (Free Text) Assessment: 47 y/o diabetic male 6 days s/p emergent incision and drainage of gas gangrene, right foot Plan: Patient seen and evaluated at bedside Discussed plan with attending Dr. Whyte Labs and vitals reviewed - afebrile, WBC 10.0 Wound flushed with copious amounts of sterile saline Wound packed with 1" iodoform packing and dressed with ABD, DSD Post-op x-rays reveal continued presence of foreign body, which appears to have shifted medially s/p surgical I&D Discussed with patient the likelihood of 4th digit amputation possible further surgical intervention Pt requests that Dr. Sheets be the only one to perform any surgical intervention on his foot Per Dr. Whyte, it is ok for patient to be discharged from podiatry standpoint with urgent recommendation to go to [place] for continued podiatric management and surgical intervention with Dr. Sheets Arterial duplex shows relatively normal CECI/PVR at rest MRI of RLE reveals no marrow edema, negative for acute OM Podiatry will continue to follow patient while in house
[2017-12-01] MEDS ORDERED: cefTRIAXone 1 gm 1 GM/100 ML BAG IV SCH (11:00)
[2017-12-01] MEDS ORDERED: Insulin Lispro 1 UNITS/0.01 ML SC SCH (11:54)
--- NOTE | 2017-12-01 13:28 | CP.PCM.PN ---
Subjective - Date & Time of Evaluation Date of Evaluation: 12/01/17 Time of Evaluation: 13:26 - Subjective Subjective: Nephrology Consultation Note Covering for Dr Marie Assessment: Stable Acute Kidney Injury (N17.9) Improved Diabetic chronic Kidney Disease (E11.22) Hypertensive Chronic Kidney Disease (I12.9) Chronic Kidney Disease (N18.3) Stage 3, Baseline serum creatinine 1.6 ESRD status post kidney transplant Anemia (D64.9), dm, HTN (I12.9), Right foot wound infection Plan No acute need for renal replacement therapy at this time. . Hypertension control with meds as ordered. Patient not on ACEI/ARB due to recent JAGRUTI Monitor Input/Output, daily weights and renal function with basic metabolic panel Continue with immunosuppression medications as Tacrolimus Myfortic and prednisone Check tacrolimus level in the morning Dose meds/antibiotics for reduced GFR. Avoid fleets enema/magnesium based laxatives. Avoid nephrotoxins/NSAIDs/ iodinated contrast (unless needed emergently) Glycemic control Further work up for as per primary team Thanks for allowing me to participate in care of your patient. Will follow patient with you. Please call if any Qs Dr Marcelino Hernandez Office: [phone] Subjective: Noted events overnight. Patients feels okay. Denies chest pain, palpitation, shortness of breath, leg swelling. All other negative Physical Examination: General Appearance: Comfortable, in no acute respiratory distress, co-operative . Vitals reviewed and noted as below Head; Atraumatic, normocephalic ENT: no ulcers no thrush. Tongue is midline. Oropharynx: no rash or ulcers. EYES: Pupils are equal, round and reactive to light accommodation. Eye muscles and extraocular movement intact. Sclera is anicteric. Neck; supple no lymphadenopathy, no thyromegaly or bruit Lungs: Normal respiratory rate/effort. Breath sounds bilateral equal and clear Heart: Normal rate. s1s2 normal. No rub or gallop. Extremities: no edema. No varicose veins. Right foot in the dressing Neurological: Patient is alert, awake and oriented to person, place and time. No focal deficit. Strength bilateral appropriate and equal Skin: Warm and dry. Normal turgor. No rash. Palpitation: Normal elasticity for age Abdomen: Abdomen is soft. Bowel sounds +. There is no abdominal tenderness, no guarding/rigidity no organomegaly Psych: normal insight and normal affect/mood MSK: no joint tenderness or swelling. Digits and nails normal, no deformity : kidney or bladder not palpable Labs/imaging reviewed. Past medical history, past surgical history, family history, social history, allergy reviewed and noted as below Family hx: no hx of CKD. Rest non-contributory Objective - Vital Signs/Intake and Output Vital Signs (last 24 hours): Temp Pulse Resp BP Pulse Ox 98.2 F 77 20 119/73 100 12/01/17 08:33 12/01/17 10:09 12/01/17 08:33 12/01/17 10:09 12/01/17 08:33 Intake and Output: 12/01/17 12/01/17 06:59 18:59 Intake Total 920 0 Output Total 1100 Balance 920 -1100 - Labs Labs: 12/01/17 06:00 12/01/17 06:00
--- NOTE | 2017-12-01 15:00 | PN ---
DATE: ENDOCRINOLOGY FOLLOWUP NOTE LOCATION: Room 366. SUBJECTIVE: This is a 47-year-old male with recent uncontrolled type 1 insulin-dependent diabetes, presenting here with diabetic ketoacidosis and dehydration and is now being followed closely for metabolic management. He continues to have very variable and suboptimal meal portions with supervening gun number hypoglycemia today as noted. His glucose value was 58 mg/dL pre-breakfast this morning as noted with the repeat glucose of 215 at lunchtime. The bedtime glucose was 234 mg/dL. His latest chemistry showed a BUN of 26, sodium 139, potassium 4.3, chloride 101, CO2 of 32, glucose 99, and creatinine 1.9. So, at this time, we will modify his basal and bolus insulin regimen to adapt variability of his oral intake and lower the Humalog to 6 units subcu t.i.d. before meals to start today as ordered. We will also lower the basal insulin with Levemir to be given as 24 units subcu at bedtime daily to start tonight. We will continue the low-dose correction scale using Humalog insulin as given. We will follow and advise accordingly. Gaye Byrnes MD
--- NOTE | 2017-12-01 16:58 | PN ---
DATE: 12/01/2017 SUBJECTIVE: The patient was seen early this morning, in room 366, bed 1. He is doing well. No fevers, no chills. PHYSICAL EXAMINATION: GENERAL: He is awake . VITAL SIGNS: Temperature of 98, blood pressure is 119/70, respiratory rate of 18. HEENT: Unremarkable. NECK: Supple. LUNGS: Decreased breath sounds. HEART: Normal S1, S2. ABDOMEN: Soft. LABORATORY DATA: Reveals the blood cultures which is pansensitive Staph aureus and [place] of 1 to vancomycin. Foot culture also has Staph aureus and also pansensitive. Another foot culture has Staph and group B strep and repeat blood culture from of no growth. ASSESSMENT AND PLAN: A 47-year-old male who was seen early this morning in room 366, bed 1, with severe sepsis with right foot gangrenous infection, abscess formation, probable osteomyelitis with intramedullary and other hardware of a previous ankle surgery with post debridement day #6 with sensitive Staphylococcus aureus bacteremia and echo is negative for vegetations. Continue the antibiotics, will need 4-6 weeks of prolonged antibiotics intravenously. The patient had bacteremia. The patient will need prolonged intravenous antibiotics because of the bacteremia alone. We will follow with you. Paulino Mota MD
[2017-12-01] MEDS ORDERED: Insulin Detemir 100 units/ml Vial (Levemir) SC SCH (22:00)
--- NOTE | 2017-12-03 08:56 | DS ---
HISTORY OF PRESENT ILLNESS: The patient was seen this Sunday late morning in bed resting comfortably in room 366, bed 1 with his and good friend and mid level business analyst at the bedside. He is awake, alert, clear, in good spirits, looking forward to discharge to home, wanting very much to go home for a day or two over the weekend before he reports to his personal curriculum writer who had done surgery on him in the past for amputation of the fourth toe. The curriculum writer microarray operations vice president today for the the curriculum writer microarray operations vice president here at the group covering for him today. Explained in detail the findings and problems with the toe necrosis need to be done in the future. I explained to the patient at length that little bit and sending him home and change his hospitals and physicians. Typically, we will continue his stay in the hospital and proceed to the OR instead. At his request, we will give him a dose of Rocephin today and then a prescription for Augmentin to cover for tomorrow while he reports to his curriculum writer who returns on Sunday. He will be admitted to [facility] for surgery to follow. A photo of his x-rays including the needle like foreign body and ankle hardware was given the patient as a telephone message. I explained to the patient that if in fact, this foreign object is a needle, this could be totally and completely the source of the infection, which he did not feel because of his diabetes. I explained the importance of continuing the antibiotics as his blood cultures were positive. He understands. Prescription was sent to the local drug store and he will follow up with his curriculum writer. FINAL DISCHARGE DIAGNOSES: 1. Cellulitis. 2. Diabetic foot with gangrene. 3. 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 4. Diabetes. 5. Extensive hardware in the right ankle as a result of prior trauma. PLAN: The patient was discharged home on antibiotics as per dose of IV Rocephin. We will follow up with his curriculum writer on Sunday. Risks were explained and I worry about hardware and possible need for amputation in the future above that hardware point. conveyed to the patient. Mart Lucio MD [facility] # [id number]
== END 2017-12-01 12:49 | disposition home or self-care (01) | DRG 853 ==
LOC: ED 10:55 → ERH 12:11 → ICU 14:36 → 3RNO 11-27 16:26
PROVIDERS: ADMIT Internal Medicine; ATTEND Internal Medicine
PROC: 0JBQ0ZZ Excision of Right Foot Subcutaneous Tissue and Fascia, Open Approach (ICD-10-PCS; principal; 2017-11-25 15:00)
DX: A41.01 Sepsis due to Methicillin susceptible Staphylococcus aureus (principal); E10.10 Type 1 diabetes mellitus with ketoacidosis without coma; N17.9 Acute kidney failure, unspecified; A48.0 Gas gangrene; E46 Unspecified protein-calorie malnutrition; I08.1 Rheumatic disorders of both mitral and tricuspid valves; I13.11 Hypertensive heart and chronic kidney disease without heart failure, with stage 5 chronic kidney disease, or end stage renal disease; E10.21 Type 1 diabetes mellitus with diabetic nephropathy; I48.0 Paroxysmal atrial fibrillation; N18.6 End stage renal disease; M86.8X7 Other osteomyelitis, ankle and foot; L03.115 Cellulitis of right lower limb; L03.116 Cellulitis of left lower limb; E13.52 Other specified diabetes mellitus with diabetic peripheral angiopathy with gangrene; E87.1 Hypo-osmolality and hyponatremia; L02.611 Cutaneous abscess of right foot; Z94.0 Kidney transplant status; E10.69 Type 1 diabetes mellitus with other specified complication; E10.319 Type 1 diabetes mellitus with unspecified diabetic retinopathy without macular edema; E10.42 Type 1 diabetes mellitus with diabetic polyneuropathy; M14.679 Charcot's joint, unspecified ankle and foot; E10.22 Type 1 diabetes mellitus with diabetic chronic kidney disease; E10.610 Type 1 diabetes mellitus with diabetic neuropathic arthropathy; E10.628 Type 1 diabetes mellitus with other skin complications; D64.9 Anemia, unspecified; E78.5 Hyperlipidemia, unspecified; E86.0 Dehydration; E87.5 Hyperkalemia; E87.6 Hypokalemia; I25.10 Atherosclerotic heart disease of native coronary artery without angina pectoris; K21.9 Gastro-esophageal reflux disease without esophagitis; S90.821A Blister (nonthermal), right foot, initial encounter; Z79.02 Long term (current) use of antithrombotics/antiplatelets; Z79.4 Long term (current) use of insulin; Z79.82 Long term (current) use of aspirin; Z79.899 Other long term (current) drug therapy; Z89.421 Acquired absence of other right toe(s); R65.20 Severe sepsis without septic shock

== ENCOUNTER 2018-05-25 12:08 | Emergency (ER) | payer MEDICARE, MEDICAID ==
[2018-05-25 12:15] VITALS: RESP 18; BMI 25.0
[2018-05-25] MEDS ORDERED: Dextrose 50% SYRINGE Inj (50 ml) ONE (12:15)
--- NOTE | 2018-05-25 12:26 | ED PDOC ---
Arrival/HPI - General Time Seen by Provider: 05/25/18 12:20 Historian: Patient, Partner - History of Present Illness Narrative History of Present Illness (Text): you were treated in the ED today for hx of heart disease on plavix/aspirin, kidney transplant, diabetes on lantus which you took last night and then novalog with breakfast this morning and then you were noted to be unconscious this morning around 1130am by your fiance who checked your sugar which was registered as low and which was 20 in the ED with sweating and confusion as you knew your name and location but not the year and otherwise without any nausea/ vomiting/headache/dizziness/difficulty breathing/chest pain/abdomen pain/ numbness/tingling/loss of limb function/pain with urination. Time/Duration: Prior to Arrival Symptom Course: Improving Quality: Other (no pain) Activities at Onset: Rest Context: Sitting Past Medical History - Provider Review Nursing Documentation Reviewed: Yes - Travel History Have you recently traveled outside [place] w/in the past 3 mons?: No - Infectious Disease Hx of Infectious Diseases: None - Tetanus Immunization Tetanus Immunization: Unknown - Cardiac Hx Cardiac Disorders: Yes Hx Hypertension: Yes Hx Peripheral Edema: Yes Hx Peripheral Vascular Disease: Yes Other/Comment: cva-2 months ago - Pulmonary Hx Respiratory Disorders: No - Neurological Hx Neurological Disorder: No Hx Seizures: No (denies) - HEENT Hx HEENT Disorder: Yes (EYE SX O.U) - Renal Hx Renal Disorder: Yes (KIDNESY TRANSPLANT 2010) Hx Renal Failure: Yes Other/Comment: RENAL DISEASE(KIDEY TRANSPLANT) 2010 - Endocrine/Metabolic Hx Endocrine Disorders: Yes Hx Diabetes Mellitus Type 1: Yes (since 13yo.) Hx Diabetes Mellitus Type 2: Yes - Hematological/Oncological Hx Blood Disorders: No Hx Blood Transfusions: No - Integumentary Hx Dermatological Disorder: Yes Other/Comment: SCARRING TO BILATERAL FOOT. - Musculoskeletal/Rheumatological Hx Musculoskeletal Disorders: Yes (RIGHT FOOT AND LEFT FOOT SX-R FOOT ORIF,) Hx Arthritis: Yes Hx Back Pain: Yes Hx Falls: No Hx Osteoarthritis: Yes Other/Comment: CHARCOT FOOT - Gastrointestinal Hx Gastrointestinal Disorders: Yes Hx Gastroesophageal Reflux: Yes (GERD) - Genitourinary/Gynecological Hx Genitourinary Disorders: Yes Hx Hematuria: Yes - Psychiatric Hx Emotional Abuse: No Hx Physical Abuse: No Hx Substance Use: No - Surgical History Hx Eye Surgery: Yes Hx Kidney Transplant: Yes (2010) Hx Musculoskeletal Surgery: Yes (RIGHT FOOT AND ANKLE X7) Hx Open Reduction Internal Fixation: (RIGHT FT W/ SCREW FIXATION) Hx Orthopedic Surgery: Yes (LEFT & RIGHT FOOT SURGERY ) Hx Tonsillectomy: Yes Other/Comment: Right foot - Anesthesia Hx Anesthesia: Yes Hx Anesthesia Reactions: Yes (nausea) Hx Malignant Hyperthermia: No - Suicidal Assessment Feels Threatened In Home Enviroment: No Family/Social History - Physician Review Nursing Documentation Reviewed: Yes Family/Social History: No Known Family HX Smoking Status: Never Smoked Hx Alcohol Use: No Hx Substance Use: No Hx Substance Use Treatment: No Allergies/Home Meds Allergies/Adverse Reactions: Allergies No Known Allergies Allergy (Verified 02/01/18 08:33) Home Medications: Home Meds Medication Instructions Recorded Confirmed Aspirin [[place] Aspirin] 81 mg PO QPM 10/13/16 02/01/18 Atorvastatin [Lipitor] 20 mg PO DAILY 10/13/16 02/01/18 Insulin Aspart [Novolog Flexpen] 10 unit SUBCUT ACTID 10/13/16 02/01/18 Insulin Glargine, Recombina 20 unit SUBCUT BID 10/13/16 02/01/18 [Lantus] Multivitamin [Daily Mamadou] 1 tab PO DAILY 10/13/16 02/01/18 Tacrolimus [Prograf Cap] 2 mg PO BID 10/13/16 02/01/18 predniSONE [predniSONE Tab] 5 mg PO DAILY 10/13/16 02/01/18 Mycophenolate Sodium [Myfortic] 2 tab PO BID 10/23/17 02/01/18 Propranolol HCl 10 mg PO HS 11/24/17 02/01/18 Cyanocobalamin [Vitamin B12] 500 mcg PO DAILY 02/01/18 02/01/18 Nutritional Supplement [Hi-[place]] 500 tab PO BID 02/01/18 02/01/18 Omeprazole 20 mg PO DAILY MDD 2 02/01/18 02/01/18 Review of Systems - Review of Systems Constitutional: Normal Eyes: Normal ENT: Normal Respiratory: Normal Cardiovascular: Normal Gastrointestinal: Normal Genitourinary Male: Normal Musculoskeletal: Normal Skin: Normal Neurological: Other (confusion) Endocrine: Normal Hemo/Lymphatic: Normal Psychiatric: Normal Physical Exam Vital Signs Reviewed: Yes Vital Signs Temp Pulse Resp BP Pulse Ox 05/25/18 12:40 61 18 136/93 H 100 05/25/18 12:14 97.7 F 65 18 175/103 H 100 Temperature: Afebrile Blood Pressure: Hypertensive Pulse: Regular Respiratory Rate: Normal Appearance: Positive for: Well-Appearing, Non-Toxic, Comfortable Pain Distress: None Mental Status: Positive for: Confused Finger Stick Blood Glucose: 20 - Systems Exam Head: Present: Atraumatic, Normocephalic Pupils: Present: PERRL Extroacular Muscles: Present: EOMI Conjunctiva: Present: Normal Ears: Present: Normal Mouth: Present: Moist Mucous Membranes Pharnyx: Present: Normal Nose (External): Present: Atraumatic Nose (Internal): Present: Normal Inspection Neck: Present: Normal Range of Motion Respiratory/Chest: Present: Clear to Auscultation, Good Air Exchange Cardiovascular: Present: Regular Rate and Rhythm Abdomen: No: Tenderness, Distention, Normal Bowel Sounds, Peritoneal Signs, Rebound, Guarding, McBurney's Point Tender, Rovsing's Sign Present, Hernias, Feeding Tubes, Ostomy Tubes, Mass/Organomegaly, Scars, Other Back: Present: Normal Inspection Upper Extremity: Present: Normal Inspection Lower Extremity: Present: Normal Inspection Neurological: Present: GCS=15, Speech Normal, Motor Func Grossly Intact Skin: Present: Warm, Dry. No: Rashes, Normal Color, Diaphoretic, Erythematous, Induration, Hot, Cold, Pale, Laceration, Abscess, Abrasion, Other Psychiatric: Present: Alert Medical Decision Making ED Course and Treatment: you were treated in the ED today for hx of heart disease on plavix/aspirin, kidney transplant, diabetes on lantus which you took last night and then novalog with breakfast this morning which you clarified and stated you didn't eat and actually gave to the dog and then you were noted to be unconscious this morning around 1130am by your fiance who checked your sugar which was registered as low and which was 20 in the ED with sweating and confusion as you knew your name and location but not the year and otherwise without any head injury/neck pain/nausea/vomiting/headache/dizziness/difficulty breathing/chest pain/abdomen pain/numbness/tingling/loss of limb function/pain with urination/ thoughts to harm yourself or others or hallucinations. You were otherwise breathing easily, smiling with your fiance, good strength/sensation, clear lungs , no abdomen tenderness, initial alert oriented to your name/location and on re- examination 1230pm alert and oriented to person/place/time and overall normal mental status per your fiance, no fever temp 97.7, stable heart rate 65, stable breathing rate 18, excellent oxygen level 100% room air, elevated blood pressure 175/103 and repeat 136/93 which we recommend repeat in 2-3 days primary care office to determine further treatment, you have blood tests no infection count 9, stable blood level hemoglobin 12/platelets 442, stable chemistry, bun/creatinine baseline 2.2 today and similar to prior 2.1, heart blood test negative less than 0.01, repeat blood sugar 197, radiology chest xray initial no acute findings, ECG normal sinus rhythm, dextrose, observation done in the ED with improvement, I had a long discussion with you and your fiance regarding further stay/observation/care in the hospital but you refused and cautioned for complications but you stated your feeling fine and want to go home, counselled to monitor blood sugar regularly and thus you wanted to go home with your fiance. 1. Recommend follow-up primary care 2 days to review symptoms, endocrine clinic to review your symptoms, referral to nephrology clinic for your elevated creatinine 2.2 near baseline prior 2.1 to ensure further care. 4. If any worsening pain, fever, chills, nausea, vomiting, difficulty breathing, numbness, loss of limb function, pain with urination or any medical condition then return to the ED. 05/25/18 13:24 Chest X-ray reviewed by radiologist, shows: No active disease. Reassessment Condition: Re-examined, Improved - Lab Interpretations Lab Results: 05/25/18 12:17 05/25/18 12:17 Lab Results 05/25/18 12:45: PT 11.3, INR 0.98, APTT 31.2 05/25/18 12:40: POC Glucose (mg/dL) 197 H 05/25/18 12:17: Sodium 142, Potassium 3.8, Chloride 104, Carbon Dioxide 27, Anion Gap 14, BUN 35 H, Creatinine 2.2 H, Est GFR ( Amer) 39, Est GFR ( Non-Af Amer) 32, Random Glucose < 20 L* D, Calcium 9.5, Magnesium 1.7, Total Bilirubin 0.4, AST 38, ALT 38, Alkaline Phosphatase 108, Lactate Dehydrogenase 560, Total Creatine Kinase 67, Troponin I < 0.01 D, Total Protein 7.9, Albumin 4.5, Globulin 3.4, Albumin/Globulin Ratio 1.3 05/25/18 12:17: WBC 9.0, RBC 4.72, Hgb 12.2 L D, Hct 38.3 L, MCV 81.1, MCH 25.8 , MCHC 31.9, RDW 15.6 H, Plt Count 442, MPV 9.6, Gran % 72.4 H, Lymph % (Auto) 14.0 L, [place] % (Auto) 9.0 H, Eos % (Auto) 4.3, Baso % (Auto) 0.3, Gran # 6.54 H , Lymph # (Auto) 1.3, [place] # (Auto) 0.8 H, Eos # (Auto) 0.4, Baso # (Auto) 0.03 I have reviewed the lab results: Yes - RAD Interpretation Narrative RAD Interpretations (Text): CXR no acute 05/25/18 13:11 Radiology Orders: 05/25/18 12:21 CHEST PORTABLE [RAD] Stat Waitstaff Captain: ED Physician - EKG Interpretation Interpreted by ED Physician: Yes (NSR) Type: 12 lead EKG - Medication Orders Current Medication Orders: Discontinued Medications Dextrose (Dextrose 50% Inj) 50 ml IVP STAT STA Stop: 05/25/18 12:37 Last Admin: 05/25/18 12:15 Dose: 50 ml IVP Administration Document 05/25/18 12:15 YAZMIN (Rec: 05/25/18 12:47 ELDER [id number]) Charges for Administration # of IVP Administrations 2 Dextrose (Dextrose 50% Inj) 50 ml IVP STAT STA Stop: 05/25/18 12:37 Last Admin: 05/25/18 12:47 Dose: Disposition/Present on Arrival - Present on Arrival Any Indicators Present on Arrival: No History of DVT/PE: No History of Uncontrolled Diabetes: No Urinary Catheter: No History Surgical Site Infection Following: None - Disposition Have Diagnosis and Disposition been Completed?: Yes Diagnosis: Hypoglycemia Disposition: HOME/ ROUTINE Disposition Time: 14:06 Patient Plan: Discharge Condition: IMPROVED Discharge Instructions (ExitCare): Low Blood Sugar in People With Diabetes Additional Instructions: you were treated in the ED today for hx of heart disease on plavix/aspirin, kidney transplant, diabetes on lantus which you took last night and then novalog with breakfast this morning which you clarified and stated you didn't eat and actually gave to the dog and then you were noted to be unconscious this morning around 1130am by your fiance who checked your sugar which was registered as low and which was 20 in the ED with sweating and confusion as you knew your name and location but not the year and otherwise without any head injury/neck pain/nausea/vomiting/headache/dizziness/difficulty breathing/chest pain/abdomen pain/numbness/tingling/loss of limb function/pain with urination/ thoughts to harm yourself or others or hallucinations. You were otherwise breathing easily, smiling with your fiance, good strength/sensation, clear lungs , no abdomen tenderness, initial alert oriented to your name/location and on re- examination 1230pm alert and oriented to person/place/time and overall normal mental status per your fiance, no fever temp 97.7, stable heart rate 65, stable breathing rate 18, excellent oxygen level 100% room air, elevated blood pressure 175/103 and repeat 136/93 which we recommend repeat in 2-3 days primary care office to determine further treatment, you have blood tests no infection count 9, stable blood level hemoglobin 12/platelets 442, stable chemistry, bun/creatinine baseline 2.2 today and similar to prior 2.1, heart blood test negative less than 0.01, repeat blood sugar 197, radiology chest xray initial no acute findings, ECG normal sinus rhythm, dextrose, observation done in the ED with improvement, I had a long discussion with you and your fiance regarding further stay/observation/care in the hospital but you refused and cautioned for complications but you stated your feeling fine and want to go home, counselled to monitor blood sugar regularly and thus you wanted to go home with your fiance. 1. Recommend follow-up primary care 2 days to review symptoms, endocrine clinic to review your symptoms, referral to nephrology clinic for your elevated creatinine 2.2 near baseline prior 2.1 to ensure further care. 4. If any worsening pain, fever, chills, nausea, vomiting, difficulty breathing, numbness, loss of limb function, pain with urination or any medical condition then return to the ED.
[2018-05-25] MEDS ORDERED: Dextrose 50% SYRINGE Inj (50 ml) IVP STA ×2 (12:36)
[2018-05-25 12:44] LABS: BASO # 0.03 K/mm3 (0.0-2.0); BASO % 0.3 % (0.0-3.0); EOS # 0.4 (0.0-0.7); EOS % 4.3 % (1.5-5.0); GRAN # 6.54 (1.4-6.5); GRAN % 72.4 % (50.0-68.0); HEMOGLOBIN 12.2 g/dL (14.0-18.0); LYMPH # 1.3 (1.2-3.4); MEAN CELL VOLUME 81.1 fl (80.0-105.0); MEAN CORPUSCULAR HEMOGLOBIN 25.8 pg (25.0-35.0); MEAN CORPUSCULAR HGB CONC 31.9 g/dl (31.0-37.0); MEAN PLATELET VOLUME 9.6 fl (7.0-11.0); MONO # 0.8 (0.1-0.6); RBC 4.72 10^6/uL (3.5-6.1); RED CELL DISTRIBUTION WIDTH 15.6 % (11.5-14.5)
[2018-05-25 13:05] LABS: INR 0.98; PARTIAL THROMBOPLASTIN TIME 31.2 Seconds (25.1-36.5); PROTHROMBIN TIME 11.3 SECONDS (9.4-12.5)
--- NOTE | 2018-05-25 13:16 | RAD ---
Date of service: 05/25/2018 HISTORY: 47yoM, hypoglycemia, loc COMPARISON: 11/24/2017 FINDINGS: LUNGS: No active pulmonary disease. PLEURA: No significant pleural effusion identified, no pneumothorax apparent. CARDIOVASCULAR: Normal. OSSEOUS STRUCTURES: No significant abnormalities. VISUALIZED UPPER ABDOMEN: Normal. OTHER FINDINGS: None. IMPRESSION: No active disease.
[2018-05-25 13:33] LABS: TROPONIN I < 0.01 ng/mL
[2018-05-25 13:37] LABS: ALB/GLOB RATIO 1.3 (1.1-1.8); ALBUMIN 4.5 g/dL (3.0-4.8); ALT/SGPT 38 U/L (7-56); AST/SGOT 38 U/L (17-59); BLOOD UREA NITROGEN 35 mg/dL (7-21); CALCIUM 9.5 mg/dL (8.4-10.5); GFR NON-AFRICAN AMERICAN 32
[2018-05-25 14:10] VITALS: BP 132/79; PULSE 78; TEMP 98.3; O2SAT 99
--- NOTE | 2018-05-25 17:11 | CARD ---
APPROVED REPORT Date of service: 05/25/2018 EKG Measurement Heart [id number] <Conclusion> Normal sinus rhythm Normal ECG
== END 2018-05-25 14:08 | disposition home or self-care (01) ==
LOC: ED 12:08
DX: E10.649 Type 1 diabetes mellitus with hypoglycemia without coma (principal); I13.11 Hypertensive heart and chronic kidney disease without heart failure, with stage 5 chronic kidney disease, or end stage renal disease; E10.21 Type 1 diabetes mellitus with diabetic nephropathy; N18.6 End stage renal disease; Z94.0 Kidney transplant status; Z79.4 Long term (current) use of insulin; Z79.82 Long term (current) use of aspirin

== ENCOUNTER 2018-07-22 18:23 | Emergency (ER) | payer MEDICARE, MEDICAID ==
[2018-07-22 18:27] VITALS: BMI 24.1
[2018-07-22 18:30] VITALS: RESP 18; TEMP 98.2
[2018-07-22] MEDS ORDERED: Oxycodone/Acetaminophen 5/325 mg Tab PO STA (18:40)
--- NOTE | 2018-07-22 18:58 | ED PDOC ---
Arrival/HPI - General Historian: Patient - History of Present Illness Narrative History of Present Illness (Text): 07/22/18 18:40 48yo male with pmhx of hypertension, Diabetes, hypercholestrol, charcot feet of right leg present with complaint of left knee pain that radiates to his foot x one week. Reports fall that happened few days ago, but it occurred after the pain have started. Reports history of OA on that knee, but the pain is worse now. States he saw Orthopedist for the knee in the past. States he has been taking Tylenol for the pain without relieve. Denies redness, swelling, any other complaint. States he saw his PMD 3days ago for a rash on his left knee, but did not mention the pain, but he thought it will resolve like his previous pain. <Indra Rodriguez - Last Filed: 07/22/18 21:40> <Mike Garg - Last Filed: 07/23/18 07:00> - General Chief Complaint: Lower Extremity Problem/Injury Past Medical History - Provider Review Nursing Documentation Reviewed: Yes - Infectious Disease Hx of Infectious Diseases: None - Tetanus Immunization Tetanus Immunization: Unknown - Cardiac Hx Cardiac Disorders: Yes Hx Hypertension: Yes Hx Peripheral Edema: Yes Hx Peripheral Vascular Disease: Yes Other/Comment: cva-2 months ago - Pulmonary Hx Respiratory Disorders: No - Neurological HX Cerebrovascular Accident: Yes Hx Seizures: No (denies) - HEENT Hx HEENT Disorder: Yes (EYE SX O.U) - Renal Hx Renal Disorder: Yes ([employer] TRANSPLANT 2010) Hx Renal Failure: Yes Other/Comment: RENAL DISEASE(KIDEY TRANSPLANT) 2010 - Endocrine/Metabolic Hx Endocrine Disorders: Yes Hx Diabetes Mellitus Type 1: Yes (since 13yo.) Hx Diabetes Mellitus Type 2: Yes - Hematological/Oncological Hx Blood Disorders: No Hx Blood Transfusions: No - Integumentary Hx Dermatological Disorder: Yes Other/Comment: SCARRING TO BILATERAL FOOT. - Musculoskeletal/Rheumatological Hx Musculoskeletal Disorders: Yes (RIGHT FOOT AND LEFT FOOT SX-R FOOT ORIF,) Hx Arthritis: Yes Hx Back Pain: Yes Hx Falls: No Hx Osteoarthritis: Yes Other/Comment: CHARCOT FOOT - Gastrointestinal Hx Gastrointestinal Disorders: Yes Hx Gastroesophageal Reflux: Yes (GERD) - Genitourinary/Gynecological Hx Genitourinary Disorders: Yes Hx Hematuria: Yes - Psychiatric Hx Emotional Abuse: No Hx Physical Abuse: No Hx Substance Use: No - Surgical History Hx Eye Surgery: Yes Hx Kidney Transplant: Yes (2010) Hx Musculoskeletal Surgery: Yes (RIGHT FOOT AND ANKLE X7) Hx Open Reduction Internal Fixation: (RIGHT FT W/ SCREW FIXATION) Hx Orthopedic Surgery: Yes (LEFT & RIGHT FOOT SURGERY ) Hx Tonsillectomy: Yes Other/Comment: Right foot - Anesthesia Hx Anesthesia: Yes Hx Anesthesia Reactions: Yes (nausea) Hx Malignant Hyperthermia: No - Suicidal Assessment Feels Threatened In Home Enviroment: No <Diru,Happiness A - Last Filed: 07/22/18 21:40> Family/Social History - Physician Review Nursing Documentation Reviewed: Yes Family/Social History: Unknown Family HX Smoking Status: Never Smoked Hx Alcohol Use: No Hx Substance Use: No Hx Substance Use Treatment: No <Diru,Happiness A - Last Filed: 07/22/18 21:40> Allergies/Home Meds <uHappiness A - Last Filed: 07/22/18 21:40> <Mike Garg - Last Filed: 07/23/18 07:00> Allergies/Adverse Reactions: Allergies No Known Allergies Allergy (Verified 02/01/18 08:33) Home Medications: Home Meds Medication Instructions Recorded Confirmed RX: Aspirin [[place] Aspirin EC] 81 mg PO QPM 10/13/16 07/22/18 RX: Atorvastatin [Lipitor] 20 mg PO DAILY 10/13/16 07/22/18 RX: Insulin Aspart [Novolog 10 unit SUBCUT ACTID 10/13/16 07/22/18 Flexpen] RX: Insulin Glargine, Recombina 20 unit SUBCUT BID 10/13/16 07/22/18 [Lantus] RX: Multivitamin [Daily Mamadou] 1 tab PO DAILY 10/13/16 07/22/18 RX: Tacrolimus [Prograf Cap] 2 mg PO BID 10/13/16 07/22/18 RX: predniSONE [predniSONE Tab] 5 mg PO DAILY 10/13/16 07/22/18 RX: Mycophenolate Sodium [Myfortic] 2 tab PO BID 10/23/17 07/22/18 RX: Propranolol HCl 10 mg PO HS 11/24/17 07/22/18 RX: Cyanocobalamin [Vitamin B12] 500 mcg PO DAILY 02/01/18 07/22/18 RX: Nutritional Supplement [Hi-[place]] 500 tab PO BID 02/01/18 07/22/18 RX: Omeprazole 20 mg PO DAILY MDD 2 02/01/18 07/22/18 Review of Systems - Physician Review All systems were reviewed & negative as marked: Yes - Review of Systems Constitutional: Normal Eyes: Normal ENT: Normal Respiratory: Normal Cardiovascular: Normal Gastrointestinal: Normal Genitourinary Male: Normal Musculoskeletal: Arthralgias (Left knee) Skin: Normal Neurological: Normal Endocrine: Normal Hemo/Lymphatic: Normal Psychiatric: Normal <Diru,Happiness A - Last Filed: 07/22/18 21:40> Physical Exam Vital Signs Reviewed: Yes Vital Signs Temp Pulse Resp BP Pulse Ox 07/22/18 18:29 98.2 F 91 H 18 152/92 H 97 Temperature: Afebrile Blood Pressure: Normal Pulse: Regular Respiratory Rate: Normal Appearance: Positive for: Well-Appearing, Non-Toxic, Comfortable Pain Distress: None Mental Status: Positive for: Alert and Oriented X 3 - Systems Exam Head: Present: Atraumatic, Normocephalic Pupils: Present: PERRL Extroacular Muscles: Present: EOMI Conjunctiva: Present: Normal Mouth: Present: Moist Mucous Membranes Neck: Present: Normal Range of Motion Respiratory/Chest: Present: Clear to Auscultation, Good Air Exchange. No: Respiratory Distress, Accessory Muscle Use Cardiovascular: Present: Regular Rate and Rhythm, Normal S1, S2. No: Murmurs Abdomen: No: Tenderness, Distention, Peritoneal Signs Back: Present: Normal Inspection Upper Extremity: Present: Normal Inspection. No: Cyanosis, Edema Lower Extremity: Present: Normal Inspection, NORMAL PULSES, Normal ROM, Tenderness (LEft knee proximal lower leg), Neurovascularly Intact, Other (Warts noted on left anterior knee). No: Edema, CALF TENDERNESS, Swelling, Erythema, Temperature Abnormalties Neurological: Present: GCS=15, CN II-XII Intact, Speech Normal Skin: Present: Warm, Dry, Normal Color. No: Rashes Psychiatric: Present: Alert, Oriented x 3, Normal Insight, Normal Concentration <Diru,Happiness A - Last Filed: 07/22/18 21:40> Vital Signs Temp Pulse Resp BP Pulse Ox 07/22/18 21:13 98.2 F 85 18 143/78 99 07/22/18 18:29 98.2 F 91 H 18 152/92 H 97 <Mike Garg - Last Filed: 07/23/18 07:00> Medical Decision Making ED Course and Treatment: 07/22/18 21:41 48yo male who present with complaint of left knee pain that radiates to his foot. PT ambulated to ED with a limp. Left knee/tib/fib/foot xray Doppler Percocet PER US tech preliminary result was negative for DVT Left knee/tib/fib - Medially displaced proximal fibular fracture noted Case was DW Dr. Donohue who recommends knee immobiler and outpt follow Result was DW the pt. He noted that he have his own Orthopedist. He was advised to f/u with his Orthopedist or Dr. Donohue. Xray CD was given to the pt Crutches given Rx of Percocet given Referred to Dr. Donohue. <Indra Rodriguez - Last Filed: 07/22/18 21:40> - RAD Interpretation Radiology Orders: 07/22/18 18:39 FOOT LEFT 3 VIEWS ROUTINE [RAD] Stat KNEE WITH PATELLA LEFT 3 VIEW [RAD] Stat 07/22/18 18:40 DUPLEX LOWER EXTRM VEIN LEFT [US] Stat 07/22/18 20:23 TIBIA FIBULA LEFT [RAD] Stat - Medication Orders Current Medication Orders: Discontinued Medications Oxycodone/Acetaminophen (Percocet 5/325 Mg Tab) 1 tab PO STAT STA Stop: 07/22/18 18:41 Last Admin: 07/22/18 19:19 Dose: 1 tab [facility] Pain Assessment Document 07/22/18 19:19 OCS (Rec: 07/22/18 19:20 OCS [id number]) Pain Reassessment Is this a pain reassessment? No Sleep Is patient sleeping during reassessment? No Presence of Pain Presence of Pain Yes Pain Scale Used Protocol: PSCALES Pain Scale Used Numeric Location Left, Right or Bilateral Left Pain Location Body Site Knee Leg Foot Description Description Constant Intensity of Pain at present 8 Aggravating Factors ADL's <Mike Garg - Last Filed: 07/23/18 07:00> - PA / CLINICAL ATHLETIC INSTRUCTOR / Resident Statement MD/DO has reviewed & agrees with the documentation as recorded. <Mike Garg - Last Filed: 07/23/18 07:00> Disposition/Present on Arrival - Present on Arrival Any Indicators Present on Arrival: No History of DVT/PE: No History of Uncontrolled Diabetes: No Urinary Catheter: No History of Decub. Ulcer: No History Surgical Site Infection Following: None - Disposition Have Diagnosis and Disposition been Completed?: Yes Disposition Time: 21:25 Patient Plan: Discharge <Indra Rodriguez - Last Filed: 07/22/18 21:40> <Mike Garg - Last Filed: 07/23/18 07:00> - Disposition Diagnosis: Fibula fracture Disposition: HOME/ ROUTINE Condition: STABLE Discharge Instructions (ExitCare): Fibula Fracture (DC) Additional Instructions: Follow up with orthopedist Return to ED for any new or worsening symptoms Prescriptions: oxyCODONE/Acetaminophen [Percocet 5/325 mg Tab] 1 ea PO Q6 #10 tab Referrals: Katie Donohue MD [Staff Provider] - Follow up with primary Forms: [employer] (Montenegrin)
[2018-07-22 22:19] VITALS: BP 143/78; PULSE 85; O2SAT 99
--- NOTE | 2018-07-23 08:21 | RAD ---
Date of service: 07/22/2018 PROCEDURE: Left Foot Radiographs. HISTORY: foot pain COMPARISON: None. FINDINGS: BONES: Old fracture deformities and partial fusion can be seen in the 2nd 3rd and 4th metatarsals. There is a plate in the 2nd metatarsal. Screws are seen in the calcaneus. No acute finding JOINTS: Normal. SOFT TISSUES: Normal. OTHER FINDINGS: None. IMPRESSION: No acute findings
--- NOTE | 2018-07-23 08:23 | RAD ---
Date of service: 07/22/2018 PROCEDURE: Left Knee Radiographs. HISTORY: Pain. COMPARISON: None. FINDINGS: BONES: There is a displaced transverse fracture of the proximal fibula JOINTS: Normal. No osteoarthritis. JOINT EFFUSION: None. OTHER FINDINGS: None. IMPRESSION: Displaced transverse fracture of the proximal fibula
--- NOTE | 2018-07-23 08:25 | RAD ---
Date of service: 07/22/2018 PROCEDURE: Radiographs of the left tibia and fibula. HISTORY: leg pain COMPARISON: None available. TECHNIQUE: Frontal and lateral views obtained. FINDINGS: BONES: There is a displaced transverse fracture of the proximal fibula. JOINT SPACES: Unremarkable. OTHER FINDINGS: None. IMPRESSION: Displaced transverse fracture of the proximal fibula
--- NOTE | 2018-07-23 09:23 | US ---
PROCEDURE: Left lower extremity venous US HISTORY: Leg pain and swelling. Evaluate for DVT. PHYSICIAN(S): John Duque MD. TECHNIQUE: Duplex sonography and color-flow Doppler with graded compression were used to evaluate the deep venous system of the left lower extremity. FINDINGS: The visualized deep venous system of the left lower extremity is sonographically normal and compressible. Normal wave forms and augmentation are seen. There is no sonographic evidence for deep venous thrombosis in the visualized segments of the left lower extremity. IMPRESSION: 1. No sonographic evidence for deep venous thrombosis in the visualized segments of the left lower extremity.
== END 2018-07-22 21:13 | disposition home or self-care (01) ==
LOC: ED 18:23
DX: S82.422A Displaced transverse fracture of shaft of left fibula, initial encounter for closed fracture (principal); W19.XXXA Unspecified fall, initial encounter; Y92.9 Unspecified place or not applicable; I10 Essential (primary) hypertension; E78.00 Pure hypercholesterolemia, unspecified; I73.9 Peripheral vascular disease, unspecified; M17.12 Unilateral primary osteoarthritis, left knee

== ENCOUNTER 2018-08-20 10:50 | Emergency (ER) | payer MEDICARE, MEDICAID ==
[2018-08-20 11:01] VITALS: BMI 25.0
[2018-08-20] MEDS ORDERED: Sodium Chloride 0.9% 1,000 ML IV STA (11:38)
--- NOTE | 2018-08-20 11:51 | ED PDOC ---
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 Pt's fiance at bedside states that she checked pt's fingerstick at 7 am and it was 350, gave pt his AM insulin, and pt stated he would eat something an hour later. States that an hour later she found patient altered, diaphoretic, and unresponsive to commands. She checked his fingerstick again and it was not registering on the glucometer. Gave pt glucose gel and called 911. Per report, EMS gave pt 1 AMP of D50 while en route to the ED. Fingerstick was checked by staff here and it was greater than 500. Pt states he does not recall what had happened but denies any acute complaints currently, only states that he feels cold. Denies headache, dizziness, fever, chills, chest pain, sob, n/v/d/c, abd pain, urinary complaints, or other symptoms. Pt's fiance reports history of uncontrolled sugars, states last episode was 2 months ago when pt had to go to the ED to be evaluated. 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 Lucio Primary Cardio: Dr. Gallegos Time/Duration: Prior to Arrival Symptom Onset: Sudden Symptom Course: Improving Quality: Unable to Describe Severity Level: Severe Activities at Onset: Rest, Light Context: Home <Herbert Willingham - Last Filed: 08/20/18 20:23> - General Chief Complaint: Altered Mental Status Past Medical History - Provider Review Nursing Documentation Reviewed: Yes - Infectious Disease Hx of Infectious Diseases: None - Tetanus Immunization Tetanus Immunization: Unknown - Cardiac Hx Cardiac Disorders: Yes Hx Hypertension: Yes Hx Peripheral Edema: Yes Hx Peripheral Vascular Disease: Yes Other/Comment: cva-2 months ago - Pulmonary Hx Respiratory Disorders: No - Neurological Hx Neurological Disorder: Yes HX Cerebrovascular Accident: Yes - HEENT Hx HEENT Disorder: Yes (EYE SX O.U) - Renal Hx Renal Disorder: Yes Hx Renal Failure: Yes Other/Comment: RENAL DISEASE(KIDEY TRANSPLANT) 2010 - Endocrine/Metabolic Hx Endocrine Disorders: Yes Hx Diabetes Mellitus Type 1: Yes Hx Diabetes Mellitus Type 2: Yes - Hematological/Oncological Hx Blood Disorders: No Hx Blood Transfusions: No - Integumentary Hx Dermatological Disorder: Yes Other/Comment: SCARRING TO BILATERAL FOOT. - Musculoskeletal/Rheumatological Hx Musculoskeletal Disorders: Yes (RIGHT FOOT AND LEFT FOOT SX-R FOOT ORIF,) Hx Arthritis: Yes Hx Back Pain: Yes Hx Osteoarthritis: Yes Other/Comment: CHARCOT FOOT - Gastrointestinal Hx Gastrointestinal Disorders: Yes Hx Gastroesophageal Reflux: Yes (GERD) - Genitourinary/Gynecological Hx Genitourinary Disorders: Yes Hx Hematuria: Yes - Psychiatric Hx Psychophysiologic Disorder: No Hx Substance Use: No - Surgical History Hx Eye Surgery: Yes Hx Kidney Transplant: Yes (2010) Hx Musculoskeletal Surgery: Yes (RIGHT FOOT AND ANKLE X7) Hx Open Reduction Internal Fixation: (RIGHT FT W/ SCREW FIXATION) Hx Orthopedic Surgery: Yes (LEFT & RIGHT FOOT SURGERY ) Hx Tonsillectomy: Yes Other/Comment: Right foot - Anesthesia Hx Anesthesia: Yes Hx Anesthesia Reactions: Yes (nausea) Hx Malignant Hyperthermia: No - Suicidal Assessment Feels Threatened In Home Enviroment: No <Herbert Willingham - Last Filed: 08/20/18 20:23> Family/Social History Family/Social History: No Known Family HX <Dane Goode - Last Filed: 08/20/18 14:29> - Physician Review Nursing Documentation Reviewed: Yes Smoking Status: Never Smoked Hx Alcohol Use: No Hx Substance Use: No Hx Substance Use Treatment: No <Herbert Willingham - Last Filed: 08/20/18 20:23> Allergies/Home Meds <Dane Goode - Last Filed: 08/20/18 14:29> <Herbert Willingham - Last Filed: 08/20/18 20:23> Allergies/Adverse Reactions: Allergies No Known Allergies Allergy (Verified 08/20/18 11:25) Home Medications: Home Meds Medication Instructions Recorded Confirmed Aspirin [[place] Aspirin EC] 81 mg PO QPM 10/13/16 08/20/18 Atorvastatin [Lipitor] 20 mg PO DAILY 10/13/16 08/20/18 Insulin Aspart [Novolog Flexpen] 10 unit SUBCUT ACTID 10/13/16 08/20/18 Insulin Glargine, Recombina 20 unit SUBCUT BID 10/13/16 08/20/18 [Lantus] Multivitamin [Daily Mamadou] 1 tab PO DAILY 10/13/16 08/20/18 Tacrolimus [Prograf Cap] 2 mg PO BID 10/13/16 08/20/18 predniSONE [predniSONE Tab] 5 mg PO DAILY 10/13/16 08/20/18 Mycophenolate Sodium [Myfortic] 2 tab PO BID 10/23/17 08/20/18 Propranolol HCl 10 mg PO HS 11/24/17 08/20/18 Cyanocobalamin [Vitamin B12] 500 mcg PO DAILY 02/01/18 08/20/18 Nutritional Supplement [Hi-[place]] 500 tab PO BID 02/01/18 08/20/18 Omeprazole 20 mg PO DAILY MDD 2 02/01/18 08/20/18 Review of Systems - Physician Review All systems were reviewed & negative as marked: Yes - Review of Systems Constitutional: absent: Fatigue, Fevers Eyes: absent: Vision Changes ENT: absent: Tinnitus, Sinus Congestion Respiratory: absent: SOB, Cough, Sputum Cardiovascular: absent: Chest Pain, Palpitations, Edema, CASTILLO Gastrointestinal: absent: Abdominal Pain, Stool Changes, Constipation, Diarrhea, Nausea, Vomiting Genitourinary Male: absent: Dysuria, Frequency, Hematuria Musculoskeletal: absent: Arthralgias, Back Pain, Myalgias Skin: absent: Rash, Pruritis Neurological: absent: Headache, Dizziness, Focal Weakness, Speech Changes Endocrine: absent: Diaphoresis Hemo/Lymphatic: absent: Adenopathy <Herbert Willingham - Last Filed: 08/20/18 20:23> Physical Exam Vital Signs Temp Pulse Resp BP Pulse Ox 08/20/18 11:01 98.8 F 80 20 154/91 H 99 <Dane Goode - Last Filed: 08/20/18 14:29> Vital Signs Reviewed: Yes Vital Signs Temp Pulse Resp BP Pulse Ox 08/20/18 11:01 98.8 F 80 20 154/91 H 99 Temperature: Afebrile Blood Pressure: Hypertensive Pulse: Regular Respiratory Rate: Normal Appearance: Positive for: Well-Appearing, Non-Toxic, Comfortable Pain Distress: None Mental Status: Positive for: Alert and Oriented X 3 - Systems Exam Head: Present: Atraumatic, Normocephalic Pupils: Present: PERRL Extroacular Muscles: Present: EOMI Conjunctiva: Present: Normal Mouth: Present: Moist Mucous Membranes Neck: Present: Normal Range of Motion. No: JVD, Lymphadenopathy Respiratory/Chest: Present: Clear to Auscultation, Good Air Exchange. No: Respiratory Distress, Accessory Muscle Use, Wheezes, Rales, Rhonchi Cardiovascular: Present: Regular Rate and Rhythm, Normal S1, S2. No: Murmurs, Rub, Gallop Abdomen: Present: Normal Bowel Sounds. No: Tenderness, Distention, Guarding, Mass/Organomegaly Upper Extremity: Present: Normal Inspection, Normal ROM, NORMAL PULSES, Neurovascularly Intact, Capillary Refill < 2s, Norm 2-Pt Discrimination. No: Cyanosis, Edema Lower Extremity: Present: Normal Inspection, NORMAL PULSES, Normal ROM, Neurovascularly Intact, Capillary Refill < 2 s. No: Edema, Tenderness Neurological: Present: GCS=15, CN II-XII Intact, Speech Normal, Motor Func Grossly Intact, Normal Sensory Function Skin: Present: Warm, Dry, Normal Color. No: Rashes Psychiatric: Present: Alert, Oriented x 3, Normal Insight, Normal Concentration <Herbert Willingham - Last Filed: 08/20/18 20:23> Medical Decision Making ED Course and Treatment: 08/20/18 12:33 Patient Seen with Resident: In agreement with resident note which contains more details about the patient. Patient seen and evaluated with resident. Came up with plan and treatment together. Impression: 48 year old male who presents to the emergency department complaining of hypoglycemia. - Lab Interpretations Lab Results: 08/20/18 12:00 08/20/18 12:00 Lab Results 08/20/18 12:00: Sodium 142, Potassium 3.8, Chloride 104, Carbon Dioxide 31, Anion Gap 11, BUN 34 H, Creatinine 1.8 H, Est GFR ( Amer) 49, Est GFR (Non-Af Amer) 40, Random Glucose 59 L, Calcium 9.5, Magnesium 1.7, Total Bilirubin 0.4, AST 26, ALT 40, Alkaline Phosphatase 256 H D, Total Protein 7.4, Albumin 3.9, Globulin 3.5, Albumin/Globulin Ratio 1.1 08/20/18 12:00: WBC 10.1, RBC 4.54, Hgb 11.3 L, Hct 36.7 L, MCV 80.8, MCH 24.9 L , MCHC 30.8 L, RDW 14.9 H, Plt Count 551 H, MPV 9.4, Gran % 73.8 H, Lymph % (Auto) 16.7 L, Pickett % (Auto) 6.7 H, Eos % (Auto) 2.5, Baso % (Auto) 0.3, Gran # 7.44 H, Lymph # (Auto) 1.7, Pickett # (Auto) 0.7 H, Eos # (Auto) 0.3, Baso # (Auto) 0.03 - Medication Orders Current Medication Orders: Sodium Chloride (Sodium Chloride 0.9%) 1,000 mls @ 999 mls/hr IV .Q1H1M STA Stop: 08/20/18 12:38 Last Admin: 08/20/18 11:44 Dose: 999 mls/hr eMAR Start Stop Document 08/20/18 11:44 ELPIDIO (Rec: 08/20/18 11:44 ELPIDIO [id number]) Intravenous Solution Start Date 08/20/18 Start Time 11:44 End Date 08/20/18 End time 12:44 Total Infusion Time 60 <Dane Goode Y - Last Filed: 08/20/18 14:29> ED Course and Treatment: 08/20/18 11:54 48 y o male PMHx insulin-dep DM, 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 Plan: -Labs -EKG -IVF Will continue to monitor. 08/20/18 14:06 Repeat fingerstick at bedside 37. Pt AAOx3, responding well to commands, in no acute distress. 1 amp D50 ordered. Will continue to monitor. 08/20/18 15:36 Repeat fingerstick 380. Call placed out to Dr. Lucio, awaiting callback. 08/20/18 15:[address] Rothman about pt case. States that it is up to the pt whether or not he wants to be admitted under observation for monitoring his blood sugars. States he will be in ED in 2 hrs to check on patient. Spoke with pt, states he does not want to be admitted at this time. Dispo pending recs of Dr. Rothman. Plan d/w attending Dr. Goode. 08/20/18 19:49 Repeat POC glucose 205. Paged Dr. Rothman, awaiting callback. Per pt PMD did not come to bedside yet. 08/20/18 19:55 Dr. Rothman states that he is en route to the Emergency department currently to eval pt. 08/20/18 20:[address] Rothman, pt cleared for discharge to home. Pt can follow up with PMD within 2-3 days of hospital discharge. Resume home medications as prescribed by PMD. Instructed to return to the Emergency department should symptoms recur or worsen. - Medication Orders Current Medication Orders: Sodium Chloride (Sodium Chloride 0.9%) 1,000 mls @ 999 mls/hr IV .Q1H1M STA Stop: 08/20/18 12:38 <Herbert Willingham - Last Filed: 08/20/18 20:23> - Scribe Statement The provider has reviewed the documentation as recorded by the Scribe Faviola Rodriguez Provider Scribe Attestation: All medical record entries made by the Scribe were at my direction and personally dictated by me. I have reviewed the chart and agree that the record accurately reflects my personal performance of the history, physical exam, medical decision making, and the department course for this patient. I have also personally directed, reviewed, and agree with the discharge instructions and disposition. <Dane Goode - Last Filed: 08/20/18 14:29> Disposition/Present on Arrival <Dane Goode - Last Filed: 08/20/18 14:29> - Present on Arrival Any Indicators Present on Arrival: No History of DVT/PE: No History of Uncontrolled Diabetes: No Urinary Catheter: No History of Decub. Ulcer: No History Surgical Site Infection Following: None - Disposition Have Diagnosis and Disposition been Completed?: Yes Disposition Time: 20:23 <Herbert Willingham - Last Filed: 08/20/18 20:23> - Disposition Diagnosis: Hypoglycemia due to type 1 diabetes mellitus Disposition: HOME/ ROUTINE Patient Problems: Current Active Problems Problem Status Onset Hypoglycemia due to type 1 diabetes mellitus Acute Condition: IMPROVED Discharge Instructions (ExitCare): Type 1 Diabetes, Low Blood Sugar, Adult (DC) Print Language: SPANISH Additional Instructions: Please follow-up with your primary care physician (Dr. Lucio) within 2-3 days of ER discharge. Resume home medications as directed by your primary care physician. Should your symptoms recur or worsen, please call your primary care physician or report to your nearest emergency department. Referrals: Mart Lucio MD [Primary Care Provider] - Follow up with primary Forms: [employer] (Amharic)
[2018-08-20 12:07] LABS: BASO # 0.03 K/mm3 (0.0-2.0); BASO % 0.3 % (0.0-3.0); EOS # 0.3 (0.0-0.7); EOS % 2.5 % (1.5-5.0); GRAN # 7.44 (1.4-6.5); GRAN % 73.8 % (50.0-68.0); HEMOGLOBIN 11.3 g/dL (14.0-18.0); LYMPH # 1.7 (1.2-3.4); LYMPH % 16.7 % (22.0-35.0); MEAN CELL VOLUME 80.8 fl (80.0-105.0); MEAN CORPUSCULAR HEMOGLOBIN 24.9 pg (25.0-35.0); MEAN CORPUSCULAR HGB CONC 30.8 g/dl (31.0-37.0); MEAN PLATELET VOLUME 9.4 fl (7.0-11.0); MONO # 0.7 (0.1-0.6); MONO % 6.7 % (1.0-6.0); RBC 4.54 10^6/uL (3.5-6.1); RED CELL DISTRIBUTION WIDTH 14.9 % (11.5-14.5); WHITE BLOOD COUNT 10.1 10^3/uL (4.5-11.0)
[2018-08-20 12:16] LABS: ALB/GLOB RATIO 1.1 (1.1-1.8); ALBUMIN 3.9 g/dL (3.0-4.8); CALCIUM 9.5 mg/dL (8.4-10.5)
[2018-08-20] MEDS ORDERED: Dextrose 50% SYRINGE Inj (50 ml) IVP STA (14:05)
--- NOTE | 2018-08-20 14:56 | RAD ---
Date of service: 08/20/2018 HISTORY: hypoglycemic COMPARISON: No prior. FINDINGS: LUNGS: No active pulmonary disease. PLEURA: No significant pleural effusion identified, no pneumothorax apparent. CARDIOVASCULAR: No atherosclerotic calcification present Normal. OSSEOUS STRUCTURES: No significant abnormalities. VISUALIZED UPPER ABDOMEN: Normal. OTHER FINDINGS: None. IMPRESSION: No active disease.
[2018-08-20 16:08] LABS: URINE BILIRUBIN NEGATIVE (NEGATIVE); URINE BLOOD TRACE-INTACT (NEGATIVE); URINE GLUCOSE (UA) 500 mg/dL (NEGATIVE); URINE LEUKOCYTE ESTERASE NEGATIVE Leu/uL (NEGATIVE); URINE PROTEIN TRACE mg/dL (<30 mg/dL); URINE UROBILINOGEN 0.2 E.U./dL (<1 E.U./dL)
[2018-08-20 16:11] LABS: URINE APPEARANCE SL CLOUDY (CLEAR); URINE COLOR YELLOW (YELLOW)
[2018-08-20 16:18] LABS: URINE WBC NEGATIVE /hpf (0-6)
--- NOTE | 2018-08-20 19:00 | CARD ---
APPROVED REPORT Date of service: 08/20/2018 EKG Measurement Heart [id number] <Conclusion> Normal sinus rhythm Normal ECG
[2018-08-21 04:40] VITALS: BP 149/80; PULSE 80; RESP 18; TEMP 98.5; O2SAT 100
== END 2018-08-20 20:25 | disposition home or self-care (01) ==
LOC: ED 10:50
DX: E10.649 Type 1 diabetes mellitus with hypoglycemia without coma (principal); I12.0 Hypertensive chronic kidney disease with stage 5 chronic kidney disease or end stage renal disease; E10.22 Type 1 diabetes mellitus with diabetic chronic kidney disease; N18.6 End stage renal disease; Z94.0 Kidney transplant status; Z79.4 Long term (current) use of insulin
CPT/HCPCS: 71045; 80053; 81001; 83735; 85025; 93005; 96361; 96374; 99284; J7030

== ENCOUNTER 2018-09-15 15:14 | Emergency (ER) | payer MEDICARE, MEDICAID ==
[2018-09-15 15:15] VITALS: BMI 25.0
[2018-09-15] MEDS ORDERED: Dextrose 50% SYRINGE Inj (50 ml) IVP STA (15:22)
--- NOTE | 2018-09-15 15:26 | ED PDOC ---
Arrival/HPI - General Chief Complaint: Altered Mental Status Historian: Patient, EMS, Other (girlfriend) - History of Present Illness Time/Duration: Prior to Arrival Symptom Course: Unchanged Severity Level: Severe Associated Symptoms (Text): 09/15/18 15:23 Girlfriend reports that she was out and she called the house and the patient did not answer. She went home to find him unresponsive in bed. He was diaphoretic. She checked his blood sugar and it measured low. She tried to give him oral glucose but he was unable to tolerate it. She called 911 and patient was brought to the emergency department. In the emergency department he is unresponsive. Severely diaphoretic. Glucose registers at less than 20. Girlfriend denies any seizure activity. There is a history of a CVA and renal transplant. History of diabetes on insulin. There are no oral hypoglycemics. An IV was started and 1 amp of D50 was pushed. Patient had good response. Diet was ordered. Past Medical History - Infectious Disease Hx of Infectious Diseases: None - Tetanus Immunization Tetanus Immunization: Unknown - Cardiac Hx Cardiac Disorders: Yes Hx Hypertension: Yes Hx Peripheral Edema: Yes Hx Peripheral Vascular Disease: Yes Other/Comment: cva - Pulmonary Hx Respiratory Disorders: No - Neurological Hx Neurological Disorder: Yes HX Cerebrovascular Accident: Yes - HEENT Hx HEENT Disorder: Yes (EYE SX O.U) - Renal Hx Renal Disorder: Yes Hx Renal Failure: Yes Other/Comment: RENAL DISEASE(KIDEY TRANSPLANT) 2010 - Endocrine/Metabolic Hx Endocrine Disorders: Yes Hx Diabetes Mellitus Type 1: Yes Hx Diabetes Mellitus Type 2: Yes - Hematological/Oncological Hx Blood Disorders: No Hx Blood Transfusions: No - Integumentary Hx Dermatological Disorder: Yes Other/Comment: SCARRING TO BILATERAL FOOT. - Musculoskeletal/Rheumatological Hx Musculoskeletal Disorders: Yes (RIGHT FOOT AND LEFT FOOT SX-R FOOT ORIF,) Hx Arthritis: Yes Hx Back Pain: Yes Hx Osteoarthritis: Yes Other/Comment: CHARCOT FOOT - Gastrointestinal Hx Gastrointestinal Disorders: Yes Hx Gastroesophageal Reflux: Yes (GERD) - Genitourinary/Gynecological Hx Genitourinary Disorders: Yes Hx Hematuria: Yes - Psychiatric Hx Psychophysiologic Disorder: No Hx Substance Use: No - Surgical History Hx Eye Surgery: Yes Hx Kidney Transplant: Yes (2010) Hx Musculoskeletal Surgery: Yes (RIGHT FOOT AND ANKLE X7) Hx Open Reduction Internal Fixation: (RIGHT FT W/ SCREW FIXATION) Hx Orthopedic Surgery: Yes (LEFT & RIGHT FOOT SURGERY ) Hx Tonsillectomy: Yes Other/Comment: Right foot - Anesthesia Hx Anesthesia: Yes Hx Anesthesia Reactions: Yes (nausea) Hx Malignant Hyperthermia: No - Suicidal Assessment Feels Threatened In Home Enviroment: No Family/Social History - Physician Review Nursing Documentation Reviewed: Yes Family/Social History: Unknown Family HX Smoking Status: Never Smoked Hx Alcohol Use: No Hx Substance Use: No Hx Substance Use Treatment: No Allergies/Home Meds Allergies/Adverse Reactions: Allergies No Known Allergies Allergy (Verified 08/20/18 11:25) Home Medications: Home Meds Medication Instructions Recorded Confirmed Aspirin [[place] Aspirin EC] 81 mg PO QPM 10/13/16 09/15/18 Atorvastatin [Lipitor] 40 mg PO DAILY 10/13/16 09/15/18 Insulin Aspart [Novolog Flexpen] 7 unit SUBCUT ACBD 10/13/16 09/15/18 Insulin Glargine, Recombina 20 unit SUBCUT BID 10/13/16 09/15/18 [Lantus] Multivitamin [Daily Mamadou] 1 tab PO DAILY 10/13/16 09/15/18 Tacrolimus [Prograf Cap] 2 mg PO BID 10/13/16 09/15/18 predniSONE [predniSONE Tab] 5 mg PO DAILY 10/13/16 09/15/18 Mycophenolate Sodium [Myfortic] 2 tab PO BID 10/23/17 09/15/18 Propranolol HCl 10 mg PO BID 11/24/17 09/15/18 Cyanocobalamin [Vitamin B12] 500 mcg PO DAILY 02/01/18 09/15/18 Omeprazole 40 mg PO DAILY MDD 2 02/01/18 09/15/18 Clopidogrel [Plavix] 75 mg PO DAILY 09/15/18 09/15/18 Nutritional Supplement [[place] 500 ml PO DAILY 09/15/18 09/15/18 1000 ml] Tacrolimus [Prograf] 1 mg PO HS 09/15/18 09/15/18 Vit B12 1 tab PO DAILY 09/15/18 Review of Systems - Physician Review All systems were reviewed & negative as marked: Yes - Review of Systems Constitutional: absent: Fatigue, Fevers Respiratory: absent: SOB, Cough, Wheezing Cardiovascular: absent: Chest Pain, Palpitations, Syncope Gastrointestinal: absent: Abdominal Pain, Diarrhea, Nausea, Vomiting, Anorexia Neurological: absent: Headache, Dizziness, Focal Weakness Physical Exam Temperature: Afebrile Blood Pressure: Normal Pulse: Regular Respiratory Rate: Normal Appearance: Positive for: Well-Appearing, Non-Toxic, Comfortable, Other (diaphoretic) Pain Distress: None Mental Status: Positive for: Alert and Oriented X 3 (post D50) Finger Stick Blood Glucose: 20 - Systems Exam Head: Present: Atraumatic, Normocephalic Pupils: Present: PERRL Extroacular Muscles: Present: EOMI Conjunctiva: Present: Normal Mouth: Present: Moist Mucous Membranes. No: Normal Tounge Pharnyx: No: ERYTHEMA, EXUDATE, TONSILS ENLARGED Neck: Present: Normal Range of Motion Respiratory/Chest: Present: Clear to Auscultation, Good Air Exchange, Decreased Breath Sounds. No: Respiratory Distress, Accessory Muscle Use Cardiovascular: Present: Regular Rate and Rhythm, Normal S1, S2. No: Murmurs Abdomen: No: Tenderness, Distention, Peritoneal Signs, Rebound, Guarding Upper Extremity: Present: Normal Inspection. No: Cyanosis, Edema Lower Extremity: Present: Other (left lower extremity [facility]). No: Edema Neurological: Present: GCS=15, CN II-XII Intact, Speech Normal, Motor Func Grossly Intact, Normal Cerebellar Funct (post D50) Skin: Present: Warm, Dry, Normal Color, Diaphoretic. No: Rashes Psychiatric: Present: Alert, Oriented x 3, Normal Insight, Normal Concentration Medical Decision Making ED Course and Treatment: 09/15/18 15:27 EKG shows normal sinus rhythm rate approximately 70 with PVCs and no acute ST or T-wave changes. 09/15/18 16:32 Patient is awake alert and in no distress. He ate a turkey sandwich. His blood sugar returned at 225. Discharge home accompanied by his fiance. He was instructed that he must eat take his meals and take his insulin as prescribed. - Medication Orders Current Medication Orders: Dextrose (Dextrose 50% Inj) 50 ml IVP STAT STA Stop: 09/15/18 15:23 Disposition/Present on Arrival - Present on Arrival Any Indicators Present on Arrival: No History of DVT/PE: No History of Uncontrolled Diabetes: No Urinary Catheter: No History of Decub. Ulcer: No History Surgical Site Infection Following: None - Disposition Have Diagnosis and Disposition been Completed?: Yes Diagnosis: Hypoglycemia due to insulin Disposition: HOME/ ROUTINE Disposition Time: 16:33 Patient Plan: Discharge Condition: IMPROVED Discharge Instructions (ExitCare): Low Blood Sugar in People With Diabetes Forms: [employer] ([place]ian)
[2018-09-15 15:48] LABS: BASO # 0.02 K/mm3 (0.0-2.0); BASO % 0.2 % (0.0-3.0); EOS # 0.2 (0.0-0.7); EOS % 1.9 % (1.5-5.0); GRAN # 6.43 (1.4-6.5); HEMOGLOBIN 11.8 g/dL (14.0-18.0); LYMPH # 1.2 (1.2-3.4); LYMPH % 13.8 % (22.0-35.0); MEAN CELL VOLUME 81.9 fl (80.0-105.0); MEAN CORPUSCULAR HEMOGLOBIN 25.1 pg (25.0-35.0); MEAN CORPUSCULAR HGB CONC 30.6 g/dl (31.0-37.0); MEAN PLATELET VOLUME 9.5 fl (7.0-11.0); MONO # 0.6 (0.1-0.6); MONO % 7.1 % (1.0-6.0); RBC 4.7 10^6/uL (3.5-6.1); RED CELL DISTRIBUTION WIDTH 15.8 % (11.5-14.5); WHITE BLOOD COUNT 8.4 10^3/uL (4.5-11.0)
[2018-09-15 16:06] LABS: TROPONIN I < 0.01 ng/mL
[2018-09-15 16:15] LABS: ALB/GLOB RATIO 1.2 (1.1-1.8); ALBUMIN 4.2 g/dL (3.0-4.8); ALT/SGPT 53 U/L (7-56); AST/SGOT 41 U/L (17-59); BLOOD UREA NITROGEN 31 mg/dL (7-21); GFR NON-AFRICAN AMERICAN 31
[2018-09-15 16:18] VITALS: BP 129/94; RESP 18; O2SAT 100
[2018-09-15 16:39] VITALS: PULSE 79
[2018-09-15 17:20] VITALS: TEMP 97.9
--- NOTE | 2018-09-16 10:39 | CARD ---
APPROVED REPORT Date of service: 09/15/2018 EKG Measurement Heart [id number] <Conclusion> Normal sinus rhythm Normal ECG
== END 2018-09-15 17:19 | disposition home or self-care (01) ==
LOC: ED 15:14
DX: E11.649 Type 2 diabetes mellitus with hypoglycemia without coma (principal); T38.3X5A Adverse effect of insulin and oral hypoglycemic [antidiabetic] drugs, initial encounter; Z79.4 Long term (current) use of insulin; Y92.89 Other specified places as the place of occurrence of the external cause; I10 Essential (primary) hypertension; Z86.73 Personal history of transient ischemic attack (TIA), and cerebral infarction without residual deficits; Z94.0 Kidney transplant status